=== PATIENT | female | born 1960 | race Caucasian/White ===

== ENCOUNTER 2019-12-02 09:30 | Inpatient (IN) ==
[2019-12-02] MEDS ORDERED: CEFUROXIME 1,500 MG VIAL ONE (09:55)
[2019-12-02] MEDS ORDERED: VANCOMYCIN 1,000 MG VIAL ONE (09:55)
[2019-12-02] MEDS ORDERED: CEFUROXIME INJ 1,500 MG in SYRINGE 1 EACH IV ONE (10:00)
[2019-12-02 11:33] LABS: ABG Base Excess -11.6 MMOL/L (-2.5-2.5); ABG HCO3 15.2 MMOL/L (20-26); ABG Oxygen Saturation 83.4 % (95-100); ABG PCO2 53.4 MM HG (35-48); ABG PO2 67.5 MM HG (80-95); ABG TCO2 16.8 MMOL/L (23-27); Glucose Heart Surgery 342 MG/DL (74-106); Hematocrit Heart Surgery 39.1 PERCENT (37-47); Hemoglobin Heart Surgery 12.7 G/DL (12.0-16.0); Potassium Heart/CVR 2.8 MMOL/L (3.5-5.1)
[2019-12-02 12:56] LABS: Hematocrit Heart Surgery 19.7 PERCENT (37-47); PCO2 Patient Temp Venous 40.6 MM HG; PH Patient Temp Venous 7.314; PO2 Patient Temp Venous 52.2 MM HG; Potassium Heart/CVR 4.1 MMOL/L (3.5-5.1); VBG Base Excess -5.1 MEQ/L (0-4); VBG Oxygen Saturation 81.1 %; VBG PCO2 40.6 MMHG (41-51); VBG PH 7.314; VBG PO2 52.2 MMHG (17-40)
[2019-12-02 12:59] LABS: Hemoglobin Heart Surgery 6.3 G/DL (12.0-16.0)
[2019-12-02 13:00] LABS: Bacteria,Urine Few /HPF (Few); Bilirubin,Urine Negative (Negative); Blood, Urine Large mg/dL (Negative); Glucose,Urine (UA) 50 mg/dL (Negative); Ketones,Urine Negative (Negative); Mucus,Urine Occasional /LPF (Occasional); Nitrite,Urine Negative (Negative); Protein,Urine 100 MG/DL; RBC,Urine 24 /HPF (0-4); Squamous Epithelial Cell,Urine Occasional /HPF (0-10); Urine Color Red (Yellow); Urine Specific Gravity 1.018 (1.001-1.035); Urine Urobilinogen < 2.0 EU/DL (0.2-1.0); WBC,Urine 6 /HPF (0-6)
[2019-12-02 13:01] LABS: Apearance,Urine Slightly Hazy (Clear)
[2019-12-02] MEDS ORDERED: ALBUMIN 5% 12.5 GM/250 ML VIAL IV ONE ×2 (13:04→13:18)
[2019-12-02] MEDS ORDERED: CALCIUM CHLORIDE 1,000 MG/10 ML VIAL IV ONE (13:06)
[2019-12-02] MEDS ORDERED: HEPARIN/NACL 0.9% 2 UNITS/ML 500 ML IV ONE (13:06)
[2019-12-02] MEDS ORDERED: SODIUM BICARBONATE 50 MEQ/50 ML VIAL IV ONE ×3 (13:06→19:27)
[2019-12-02] MEDS ORDERED: SUFentanil 250 MCG/5 ML AMP ONE (13:06)
[2019-12-02] MEDS ORDERED: MIDAZOLAM 10 MG/2 ML VIAL ONE (13:06)
[2019-12-02] MEDS ORDERED: AMINOCAPROIC ACID 5,000 MG/20 ML VIAL ONE (13:07)
[2019-12-02] MEDS ORDERED: AMIODARONE 150 MG/3 ML VIAL ONE ×2 (13:07→13:10)
[2019-12-02] MEDS ORDERED: SODIUM CHLORIDE 0.9% 2,000 ML IV ONE (13:07)
[2019-12-02] MEDS ORDERED: SODIUM CHLORIDE 0.9% 500 ML IV ONE (13:07)
[2019-12-02] MEDS ORDERED: LACTATED RINGERS 1,000 ML IV ONE (13:07)
[2019-12-02] MEDS ORDERED: EPINEPHrine 1 MG/ML VIAL ONE (13:07)
[2019-12-02] MEDS ORDERED: VECURONIUM 10 MG VIAL IV ONE (13:07)
[2019-12-02] MEDS ORDERED: PHENYLEPHRINE 1 MG/10 ML SYRINGE IV ONE (13:08)
[2019-12-02] MEDS ORDERED: PHENYLEPHRINE DRIP 20 MG/250 ML PREMIX IV ONE (13:08)
[2019-12-02] MEDS ORDERED: PHENYLEPHRINE DRIP 40 MG/250 ML PREMIX IV ONE (13:17)
[2019-12-02] MEDS ORDERED: POTASSIUM CHLORIDE RIDER 0 ML IV ONE (13:18)
[2019-12-02 13:25] LABS: Hematocrit Heart Surgery 23.4 PERCENT (37-47); Hemoglobin Heart Surgery 7.5 G/DL (12.0-16.0); PCO2 Patient Temp Venous 35.4 MM HG; PH Patient Temp Venous 7.425; PO2 Patient Temp Venous 40.8 MM HG; VBG Base Excess -0.9 MEQ/L (0-4); VBG HCO3 23.4 MEQ/L (24-28); VBG Oxygen Saturation 73.3 %; VBG PCO2 35.4 MMHG (41-51); VBG PH 7.425; VBG PO2 40.8 MMHG (17-40)
[2019-12-02 13:56] LABS: Hematocrit Heart Surgery 28.3 PERCENT (37-47); Hemoglobin Heart Surgery 9.1 G/DL (12.0-16.0); PCO2 Patient Temp Venous 43.1 MM HG; PH Patient Temp Venous 7.269; PO2 Patient Temp Venous 47.1 MM HG; Potassium Heart/CVR 3.7 MMOL/L (3.5-5.1); VBG Base Excess -6.9 MEQ/L (0-4); VBG HCO3 18.5 MEQ/L (24-28); VBG Oxygen Saturation 77.3 %; VBG PCO2 43.1 MMHG (41-51); VBG PH 7.269; VBG PO2 47.1 MMHG (17-40)
[2019-12-02 14:44] LABS: ABG Base Excess -6.7 MMOL/L (-2.5-2.5); ABG PH 7.296 (7.35-7.45); Glucose Heart Surgery 278 MG/DL (74-106); Hematocrit Heart Surgery 44.2 PERCENT (37-47); Hemoglobin Heart Surgery 14.4 G/DL (12.0-16.0); Ionized Calcium Arterial 1.33 MMOL/L (1.21-1.46); PH Patient Temp Arterial 7.296; Patient Temperature 37 CELCIUS; Potassium Heart/CVR 3.1 MMOL/L (3.5-5.1); Sodium Heart/CVR 131 MMOL/L (135-145)
[2019-12-02] MEDS ORDERED: AMIODARONE 450 MG/9 ML VIAL IV ONE (14:54)
[2019-12-02] MEDS ORDERED: DOBUTamine 0 MG/0 ML PREMIX IV ONE (14:54)
[2019-12-02] MEDS: DOBUTamine 500 MG/250 ML PREMIX IV SCH (15:18)
[2019-12-02] MEDS ORDERED: AMIODARONE INJ 450 MG in DEXTROSE 5% 241 ML IV SCH (15:18)
[2019-12-02] MEDS: SODIUM CHLORIDE 0.45% 1,000 ML IV SCH ×2 (15:18)
[2019-12-02] MEDS: PHENYLEPHRINE DRIP 40 MG/250 ML PREMIX IV PRN ×4 (15:18→21:59)
[2019-12-02] MEDS ORDERED: MANNITOL 100 GM/500 ML BAG IV ONE (15:27)
[2019-12-02] MEDS ORDERED: DEXTROSE 5% KCL 20 MEQ 20 MEQ/1,000 ML BAG IV ONE (15:27)
[2019-12-02] MEDS ORDERED: LIDOCAINE 2% 5 ML VIAL ONE (15:27)
[2019-12-02] MEDS ORDERED: FUROSEMIDE 20 MG/2 ML VIAL ONE (15:28)
[2019-12-02] MEDS ORDERED: MAGNESIUM SULFATE 5 GM/10 ML VIAL IV ONE (15:28)
[2019-12-02] MEDS ORDERED: methylPREDNISolone SOD SUC 1,000 MG/8 ML VIAL ONE (15:28)
[2019-12-02] MEDS ORDERED: HEPARIN 10,000 UNIT/10 ML VIAL ONE (15:28)
[2019-12-02] MEDS ORDERED: ALBUMIN 25% 25 GM/100 ML VIAL IV ONE (15:28)
[2019-12-02] MEDS ORDERED: POTASSIUM CHLORIDE RIDER 100 ML IV ONE (15:28)
[2019-12-02] MEDS ORDERED: INSULIN REGULAR DRIP 100 ML IV SCH (15:44)
[2019-12-02] MEDS ORDERED: MIDAZOLAM 10 MG/2 ML VIAL IV PRN (15:44)
[2019-12-02] MEDS ORDERED: ACETAMINOPHEN 650 MG SUPP RECTAL PRN (15:44)
[2019-12-02] MEDS ORDERED: INSULIN REGULAR 100 UNIT/ML IV PRN (15:44)
[2019-12-02] MEDS ORDERED: DEXTROSE 50% 25 GM/50 ML VIAL IV PRN ×2 (15:44)
[2019-12-02] MEDS ORDERED: MAGNESIUM SULF RIDER 4 GM in PREMIX 1 EACH IV PRN (15:44)
[2019-12-02] MEDS ORDERED: INSULIN REGULAR 100 UNIT/ML IV ONE (15:44)
[2019-12-02] MEDS ORDERED: ONDANSETRON 4 MG/2 ML VIAL IV PRN (15:44)
[2019-12-02] MEDS ORDERED: VECURONIUM 10 MG VIAL IV PRN ×2 (15:44)
[2019-12-02] MEDS ORDERED: CALCIUM CHLORIDE 1,000 MG/10 ML SYRINGE IV PRN (15:44)
[2019-12-02] MEDS ORDERED: NITROPRUSSIDE 100 MG in DEXTROSE 5% 250 ML IV PRN (15:44)
[2019-12-02] MEDS ORDERED: MAGNESIUM SULF RIDER 2 GM in PREMIX 1 EACH IV PRN (15:44)
[2019-12-02] MEDS ORDERED: MORPHINE 10 MG/1 ML VIAL IV PRN (15:44)
[2019-12-02] MEDS ORDERED: MIDAZOLAM 2 MG/2 ML VIAL IV PRN (15:44)
[2019-12-02 15:49] LABS: ABG Base Excess -3.7 MMOL/L (-2.5-2.5); ABG HCO3 21.2 MMOL/L (20-26); ABG Oxygen Saturation 93.6 % (95-100); ABG PCO2 45.5 MM HG (35-48); ABG PH 7.305 (7.35-7.45); ABG PO2 76.1 MM HG (80-95); ABG TCO2 20.8 MMOL/L (23-27); Glucose Heart Surgery 244 MG/DL (74-106); Hematocrit Heart Surgery 30.9 PERCENT (37-47); Potassium Heart/CVR 3.9 MMOL/L (3.5-5.1)
[2019-12-02 15:50] LABS: Basophils % 0.2 % (0.0-0.8); Hematocrit 28.6 VOL% (35.7-47.0); Hemoglobin 9.9 GM/DL (12.0-16.0); Immature Granulocytes % 1.9 %; Immature Granulocytes Absolute 0.35 #; Lymphocytes # 0.4 10*3/uL (1.4-4.0); Mean Corpuscular HGB Conc 34.6 GM/DL (32-36); Mean Corpuscular Volume 84.6 FL (87-102); Mean Platelet Volume 12.5 FL (9.6-12.0); Monocytes % 4.9 % (1.7-12.7); NRBC # 0.02 10*3/uL; Platelet Count 149 T/CUMM (130-400); Red Blood Count 3.38 MC/CUMM (3.8-5.5); Red Cell Distribution Width 14.5 % (9.3-17.3); White Blood Count 18.6 T/CUMM (4-12)
[2019-12-02 16:00] LABS: INR 1.3; Partial Thromboplastin Time 35.3 SECS (23.9-33.8)
[2019-12-02 16:10] LABS: Albumin 1.4 G/DL (3.4-5.0); Bilirubin,Total 3.6 MG/DL (0.2-1.0); Calcium 7.5 MG/DL (8.5-10.1); Osmolality,Calculated 301.3 MOS/KG (273-304); Total Protein 3.8 G/DL (6.4-8.3)
[2019-12-02 16:15] LABS: Anisocytosis 1+; Hypochromasia Slight; Lymphocytes 4 % (20-55); Platelet Estimate Adequate; Segmented Neutrophils 91 % (50-85); Total Cells Counted 100; Troponin I 32.9 NG/ML (0.00-0.045)
[2019-12-02] MEDS ORDERED: FUROSEMIDE 40 MG/4 ML VIAL IV ONE (17:02)
[2019-12-02 18:01] LABS: ABG Base Excess -6.2 MMOL/L (-2.5-2.5); ABG HCO3 18.4 MMOL/L (20-26); ABG Oxygen Saturation 97.7 % (95-100); ABG PCO2 32.9 MM HG (35-48); ABG PH 7.366 (7.35-7.45); ABG PO2 127.1 MM HG (80-95); ABG TCO2 19.4 MMOL/L (23-27); Glucose Heart Surgery 189 MG/DL (74-106); Hemoglobin Heart Surgery 9.5 G/DL (12.0-16.0)
[2019-12-02] MEDS: FUROSEMIDE INJ 100 MG in SODIUM CHLORIDE 0.9% 90 ML IV SCH (18:06)
[2019-12-02] MEDS: ALBUMIN 5% 12.5 GM in PREMIX 1 EACH IV PRN ×3 (19:02→22:08)
[2019-12-02] MEDS: POTASSIUM CHLORIDE RIDER 20 MEQ in PREMIX 1 EACH IV PRN ×3 (19:05→22:23)
[2019-12-02] MEDS: LACTATED RINGERS 250 ML IV PRN ×3 (19:30→23:30)
[2019-12-02] MEDS: CHLORHEXIDINE 0.12% ORAL RINSE 60 ML BOTTLE SWISH/SPIT SCH (20:39)
[2019-12-02 21:23] LABS: ABG Base Excess -2.9 MMOL/L (-2.5-2.5); ABG Oxygen Saturation 98.4 % (95-100); ABG PCO2 35.8 MM HG (35-48); ABG PH 7.388 (7.35-7.45); ABG TCO2 19.6 MMOL/L (23-27); Glucose Heart Surgery 190 MG/DL (74-106); Potassium Heart/CVR 3.5 MMOL/L (3.5-5.1)
[2019-12-02] MEDS: AMIODARONE INJ 450 MG in DEXTROSE 5% 241 ML IV SCH (22:40)
[2019-12-02] MEDS: PANTOPRAZOLE 40 MG VIAL IV SCH (22:43)
[2019-12-02] MEDS: CEFUROXIME INJ 1,500 MG in SYRINGE 1 EACH IV SCH (22:46)
[2019-12-02] MEDS: POTASSIUM CHLORIDE RIDER 10 MEQ in PREMIX 1 EACH IV PRN (22:49)
[2019-12-02] MEDS: PHENYLEPHRINE INJ 160 MG in SODIUM CHLORIDE 0.9% 234 ML IV PRN (23:41)
[2019-12-03 00:16] LABS: CKMB % 5.1 %
[2019-12-03] MEDS: ALBUMIN 5% 12.5 GM in PREMIX 1 EACH IV PRN (00:16)
[2019-12-03] MEDS: LACTATED RINGERS 250 ML IV PRN (00:31)
[2019-12-03 01:38] LABS: ABG Base Excess -0.4 MMOL/L (-2.5-2.5); ABG HCO3 22.4 MMOL/L (20-26); ABG Oxygen Saturation 96.4 % (95-100); ABG PCO2 30.4 MM HG (35-48); ABG PH 7.486 (7.35-7.45); ABG PO2 91.4 MM HG (80-95); ABG TCO2 23.4 MMOL/L (23-27); Glucose Heart Surgery 103 MG/DL (74-106); Potassium Heart/CVR 3.6 MMOL/L (3.5-5.1)
[2019-12-03] MEDS: POTASSIUM CHLORIDE RIDER 20 MEQ in PREMIX 1 EACH IV PRN ×2 (01:54→23:20)
[2019-12-03] MEDS: POTASSIUM CHLORIDE RIDER 10 MEQ in PREMIX 1 EACH IV PRN ×2 (02:29→05:15)
[2019-12-03] MEDS: FUROSEMIDE INJ 100 MG in SODIUM CHLORIDE 0.9% 90 ML IV SCH ×3 (02:37→23:01)
[2019-12-03 04:18] LABS: ABG Base Excess -0.4 MMOL/L (-2.5-2.5); ABG HCO3 23.3 MMOL/L (20-26); ABG PCO2 34.3 MM HG (35-48); ABG PH 7.449 (7.35-7.45); ABG PO2 91.9 MM HG (80-95); ABG TCO2 24.3 MMOL/L (23-27); Glucose Heart Surgery 105 MG/DL (74-106); Hemoglobin Heart Surgery 10.1 G/DL (12.0-16.0); Potassium Heart/CVR 4.5 MMOL/L (3.5-5.1)
[2019-12-03 04:23] LABS: Basophils % 0.1 % (0.0-0.8); Hematocrit 27.7 VOL% (35.7-47.0); Hemoglobin 9.6 GM/DL (12.0-16.0); Immature Granulocytes Absolute 0.19 #; Lymphocytes # 0.5 10*3/uL (1.4-4.0); Lymphocytes % 2.6 % (21.3-54.2); Mean Corpuscular HGB Conc 34.7 GM/DL (32-36); Mean Corpuscular Volume 83.2 FL (87-102); Monocytes % 6.3 % (1.7-12.7); NRBC # 0.03 10*3/uL; Platelet Count 170 T/CUMM (130-400); Red Blood Count 3.33 MC/CUMM (3.8-5.5); Red Cell Distribution Width 14.5 % (9.3-17.3); White Blood Count 18.5 T/CUMM (4-12)
[2019-12-03 04:56] LABS: Bilirubin,Direct 3.05 MG/DL (0.0-0.20); Bilirubin,Total 7.3 MG/DL (0.2-1.0); Calcium 8.8 MG/DL (8.5-10.1); Osmolality,Calculated 296.1 MOS/KG (273-304); Total Protein 5.3 G/DL (6.4-8.3)
[2019-12-03 05:17] LABS: Band Neutrophils 8 % (0-10); Lymphocytes 3 % (20-55); Platelet Estimate Normal; Segmented Neutrophils 82 % (50-85); Total Cells Counted 100
[2019-12-03 05:18] LABS: Anisocytosis 1+
[2019-12-03 05:19] LABS: Giant Platelets Few; Macrocytosis Slight; Polychromasia Slight
[2019-12-03 07:08] LABS: ABG Base Excess -1.7 MMOL/L (-2.5-2.5); ABG Oxygen Saturation 97.1 % (95-100); ABG PCO2 34.1 MM HG (35-48); ABG PH 7.421 (7.35-7.45); ABG TCO2 19.8 MMOL/L (23-27); Glucose Heart Surgery 134 MG/DL (74-106); Potassium Heart/CVR 4.7 MMOL/L (3.5-5.1)
[2019-12-03 07:50] LABS: CKMB % 2.4 %
[2019-12-03 07:56] LABS: Troponin I 35.1 NG/ML (0.00-0.045)
[2019-12-03] MEDS: TICAGRELOR 90 MG TABLET PO SCH ×2 (09:02→21:08)
[2019-12-03] MEDS: PANTOPRAZOLE 40 MG VIAL IV SCH ×2 (09:02→21:09)
[2019-12-03] MEDS: CHLORHEXIDINE 0.12% ORAL RINSE 60 ML BOTTLE SWISH/SPIT SCH ×2 (09:03→21:18)
[2019-12-03] MEDS: ASPIRIN CHEW 81 MG TABLET PO SCH (09:03)
[2019-12-03 09:50] LABS: ABG Base Excess -2.5 MMOL/L (-2.5-2.5); ABG HCO3 22.3 MMOL/L (20-26); ABG Oxygen Saturation 96.2 % (95-100); ABG PH 7.418 (7.35-7.45); ABG PO2 84.4 MM HG (80-95); ABG TCO2 19.1 MMOL/L (23-27); Glucose Heart Surgery 137 MG/DL (74-106); Hematocrit Heart Surgery 34.5 PERCENT (37-47); Hemoglobin Heart Surgery 11.2 G/DL (12.0-16.0); Potassium Heart/CVR 4.5 MMOL/L (3.5-5.1)
[2019-12-03] MEDS: PHENYLEPHRINE INJ 160 MG in SODIUM CHLORIDE 0.9% 234 ML IV PRN (10:46)
[2019-12-03] MEDS: ASCORBIC ACID 500 MG TABLET PO SCH ×2 (11:08→21:09)
[2019-12-03] MEDS: CEFUROXIME INJ 1,500 MG in SYRINGE 1 EACH IV SCH ×2 (11:09→22:56)
[2019-12-03] MEDS: INSULIN REGULAR 100 UNIT/ML SUBCUT SCH ×3 (11:36→21:07)
[2019-12-03] MEDS: AMIODARONE INJ 450 MG in DEXTROSE 5% 241 ML IV SCH ×2 (13:40→15:27)
[2019-12-03 15:03] LABS: ABG Base Excess -3.4 MMOL/L (-2.5-2.5); ABG HCO3 21.6 MMOL/L (20-26); ABG Oxygen Saturation 97.5 % (95-100); ABG PCO2 30.1 MM HG (35-48); ABG PO2 97.8 MM HG (80-95); ABG TCO2 17.8 MMOL/L (23-27); Glucose Heart Surgery 167 MG/DL (74-106); Hematocrit Heart Surgery 34.6 PERCENT (37-47); Hemoglobin Heart Surgery 11.2 G/DL (12.0-16.0); Potassium Heart/CVR 4.6 MMOL/L (3.5-5.1)
[2019-12-03] MEDS: DOBUTamine 500 MG/250 ML PREMIX IV SCH (15:55)
[2019-12-03] MEDS ORDERED: ACETAMINOPHEN 325 MG/10.15 ML UDCUP PO PRN (16:07)
[2019-12-03 16:10] LABS: CKMB % 1.5 %; Troponin I 32.9 NG/ML (0.00-0.045)
[2019-12-03] MEDS ORDERED: POTASSIUM CHLORIDE RIDER 10 MEQ in PREMIX 1 EACH IV PRN (16:59)
[2019-12-03] MEDS ORDERED: MAGNESIUM SULF RIDER 2 GM in PREMIX 1 EACH IV PRN (16:59)
[2019-12-03] MEDS: SODIUM CHLORIDE 0.45% 1,000 ML IV SCH ×2 (17:30)
[2019-12-03] MEDS ORDERED: HEPARIN/NACL 0.9% 2 UNITS/ML 1,000 ML IV ONE (17:49)
[2019-12-03] MEDS ORDERED: LIDOCAINE 1% 20 ML VIAL ONE (17:50)
[2019-12-03] MEDS ORDERED: VANCOMYCIN 500 MG VIAL ONE (18:18)
[2019-12-03] MEDS ORDERED: HEPARIN/NACL 0.9% 2 UNITS/ML 500 ML IV ONE ×2 (19:01→20:45)
[2019-12-03 20:45] LABS: ABG Base Excess -2.4 MMOL/L (-2.5-2.5); ABG HCO3 22.3 MMOL/L (20-26); ABG Oxygen Saturation 95.6 % (95-100); ABG PCO2 32.1 MM HG (35-48); ABG PH 7.427 (7.35-7.45); ABG PO2 83.3 MM HG (80-95); Glucose Heart Surgery 209 MG/DL (74-106); Hematocrit Heart Surgery 33.7 PERCENT (37-47); Hemoglobin Heart Surgery 10.9 G/DL (12.0-16.0); Potassium Heart/CVR 4.2 MMOL/L (3.5-5.1)
[2019-12-03] MEDS: HEPARIN DRIP 25,000 UNITS/500 ML PREMIX IV SCH (20:49)
[2019-12-03] MEDS: SODIUM BICARB INJ 50 MEQ in SODIUM CHLORIDE 0.45% 1,000 ML IV SCH (20:59)
[2019-12-04] MEDS: INSULIN REGULAR 100 UNIT/ML SUBCUT SCH ×7 (00:28→23:26)
[2019-12-04 02:22] LABS: ABG Base Excess -1.9 MMOL/L (-2.5-2.5); ABG HCO3 22.8 MMOL/L (20-26); ABG Oxygen Saturation 97.1 % (95-100); ABG PCO2 30.3 MM HG (35-48); ABG PH 7.453 (7.35-7.45); ABG PO2 94.6 MM HG (80-95); ABG TCO2 19.2 MMOL/L (23-27); Glucose Heart Surgery 253 MG/DL (74-106); Hematocrit Heart Surgery 31.6 PERCENT (37-47); Hemoglobin Heart Surgery 10.2 G/DL (12.0-16.0)
[2019-12-04 02:45] LABS: Basophils % 0.2 % (0.0-0.8); Immature Granulocytes % 1.2 %; Immature Granulocytes Absolute 0.18 #; Lymphocytes # 0.5 10*3/uL (1.4-4.0); Lymphocytes % 3.3 % (21.3-54.2); Mean Corpuscular HGB Conc 33.3 GM/DL (32-36); Mean Corpuscular Volume 85.5 FL (87-102); Monocytes % 2.9 % (1.7-12.7); NRBC # 0.29 10*3/uL; Neutrophils % 92.4 % (38.7-73.9); Red Blood Count 3.51 MC/CUMM (3.8-5.5); Red Cell Distribution Width 15.4 % (9.3-17.3); White Blood Count 14.7 T/CUMM (4-12)
[2019-12-04 02:54] LABS: Platelet Count 123 T/CUMM (130-400)
[2019-12-04] MEDS: HEPARIN 5,000 UNIT/1 ML VIAL IV PRN ×2 (03:25→08:45)
[2019-12-04] MEDS: DOBUTamine 500 MG/250 ML PREMIX IV SCH ×2 (03:28→14:50)
[2019-12-04 05:23] LABS: Albumin 2.6 G/DL (3.4-5.0); Bilirubin,Direct 4.79 MG/DL (0.0-0.20); Bilirubin,Total 7.6 MG/DL (0.2-1.0); Osmolality,Calculated 312.4 MOS/KG (273-304)
[2019-12-04 05:42] LABS: Anisocytosis 1+; Band Neutrophils 5 % (0-10); Hypochromasia 2+; Lymphocytes 5 % (20-55); Macrocytosis 1+; Platelet Estimate Decreased; Segmented Neutrophils 87 % (50-85); Total Cells Counted 100
[2019-12-04] MEDS: AMIODARONE INJ 450 MG in DEXTROSE 5% 241 ML IV SCH ×2 (05:57→20:34)
[2019-12-04 08:12] LABS: ABG Base Excess -1.1 MMOL/L (-2.5-2.5); ABG HCO3 21.4 MMOL/L (20-26); ABG PCO2 28.5 MM HG (35-48); ABG PH 7.493 (7.35-7.45); ABG PO2 104.7 MM HG (80-95); ABG TCO2 22.3 MMOL/L (23-27); Glucose Heart Surgery 203 MG/DL (74-106); Hemoglobin Heart Surgery 10.4 G/DL (12.0-16.0); Potassium Heart/CVR 3.7 MMOL/L (3.5-5.1)
[2019-12-04 08:15] LABS: VBG Base Excess -0.4 MEQ/L (0-4); VBG HCO3 22.9 MEQ/L (24-28); VBG Oxygen Saturation 88.8 %; VBG PCO2 32.7 MMHG (41-51); VBG PH 7.463
[2019-12-04] MEDS: PANTOPRAZOLE 40 MG VIAL IV SCH ×2 (08:45→20:41)
[2019-12-04] MEDS: ASPIRIN CHEW 81 MG TABLET PO SCH (08:47)
[2019-12-04] MEDS: TICAGRELOR 90 MG TABLET PO SCH ×2 (08:47→20:41)
[2019-12-04] MEDS: MORPHINE 4 MG/1 ML VIAL IV PRN (08:50)
[2019-12-04] MEDS: ASCORBIC ACID 500 MG TABLET PO SCH ×2 (08:54→20:41)
[2019-12-04 08:59] LABS: Troponin I 25.8 NG/ML (0.00-0.045)
[2019-12-04 09:07] LABS: VBG Base Excess -0.1 MEQ/L (0-4); VBG HCO3 23.2 MEQ/L (24-28); VBG Oxygen Saturation 83.5 %; VBG PCO2 33.2 MMHG (41-51); VBG PH 7.463; VBG PO2 52.7 MMHG (17-40)
[2019-12-04 09:35] LABS: CKMB % 1.3 %
[2019-12-04] MEDS: CHLORHEXIDINE 0.12% ORAL RINSE 60 ML BOTTLE SWISH/SPIT SCH ×2 (09:50→20:41)
[2019-12-04] MEDS: SODIUM BICARB INJ 50 MEQ in SODIUM CHLORIDE 0.45% 1,000 ML IV SCH ×3 (10:52→23:30)
[2019-12-04] MEDS: FUROSEMIDE INJ 100 MG in SODIUM CHLORIDE 0.9% 90 ML IV SCH ×2 (10:52→20:35)
[2019-12-04 14:08] LABS: Calcium 7.8 MG/DL (8.5-10.1); Osmolality,Calculated 310.4 MOS/KG (273-304)
[2019-12-04 14:17] LABS: INR 1.4; PT Patient Result 14.5 SECS (9.8-11.9); Partial Thromboplastin Time 40.1 SECS (23.9-33.8)
[2019-12-04] MEDS: SODIUM CHLORIDE 0.45% 1,000 ML IV SCH (17:39)
[2019-12-04] MEDS ORDERED: NITROGLYCERIN DRIP 50 MG/250 ML BOTTLE IV PRN (20:13)
[2019-12-04] MEDS ORDERED: FUROSEMIDE 40 MG/4 ML VIAL IV ONE (20:13)
[2019-12-04] MEDS: HEPARIN DRIP 25,000 UNITS/500 ML PREMIX IV SCH (20:35)
[2019-12-05 03:07] LABS: ABG Base Excess 1.5 MMOL/L (-2.5-2.5); ABG HCO3 24.5 MMOL/L (20-26); ABG Oxygen Saturation 98.3 % (95-100); ABG PCO2 32.6 MM HG (35-48); ABG PH 7.494 (7.35-7.45); ABG PO2 164.9 MM HG (80-95); ABG TCO2 25.5 MMOL/L (23-27); Glucose Heart Surgery 148 MG/DL (74-106); Hemoglobin Heart Surgery 9.8 G/DL (12.0-16.0); Potassium Heart/CVR 3.6 MMOL/L (3.5-5.1)
[2019-12-05] MEDS: INSULIN REGULAR 100 UNIT/ML SUBCUT SCH ×5 (03:14→20:04)
[2019-12-05 03:15] LABS: Basophils % 0.3 % (0.0-0.8); Hemoglobin 9.3 GM/DL (12.0-16.0); Immature Granulocytes % 3.3 %; Immature Granulocytes Absolute 0.53 #; Mean Corpuscular HGB Conc 34.4 GM/DL (32-36); Mean Corpuscular Volume 85.4 FL (87-102); Mean Platelet Volume 13.7 FL (9.6-12.0); Monocytes % 3.1 % (1.7-12.7); NRBC # 0.53 10*3/uL; Neutrophils % 87.3 % (38.7-73.9); Red Blood Count 3.16 MC/CUMM (3.8-5.5); White Blood Count 15.9 T/CUMM (4-12)
[2019-12-05 03:18] LABS: Platelet Count 90 T/CUMM (130-400)
[2019-12-05] MEDS: POTASSIUM CHLORIDE RIDER 10 MEQ in PREMIX 1 EACH IV PRN ×2 (03:25→16:31)
[2019-12-05 03:43] LABS: Albumin 2.4 G/DL (3.4-5.0); Bilirubin,Direct 4.73 MG/DL (0.0-0.20); Bilirubin,Total 7.1 MG/DL (0.2-1.0); Calcium 7.7 MG/DL (8.5-10.1); Osmolality,Calculated 307.8 MOS/KG (273-304)
[2019-12-05 04:18] LABS: Troponin I 17.2 NG/ML (0.00-0.045)
[2019-12-05 04:42] LABS: Lymphocytes 10 % (20-55); Nucleated Red Blood Cells 3 (0-5); Platelet Estimate Decreased; Segmented Neutrophils 88 % (50-85); Total Cells Counted 100
[2019-12-05 04:42] LABS: ABG Base Excess 2.1 MMOL/L (-2.5-2.5); ABG HCO3 26.3 MMOL/L (20-26); ABG Oxygen Saturation 98.3 % (95-100); ABG PCO2 35.5 MM HG (35-48); ABG PH 7.467 (7.35-7.45); ABG TCO2 23.5 MMOL/L (23-27); Glucose Heart Surgery 175 MG/DL (74-106); Hematocrit Heart Surgery 28.8 PERCENT (37-47); Hemoglobin Heart Surgery 9.3 G/DL (12.0-16.0)
[2019-12-05 04:43] LABS: Hypochromasia Slight; Macrocytosis Slight; Polychromasia Slight
[2019-12-05 07:31] LABS: CKMB % 0.7 %
[2019-12-05] MEDS: FUROSEMIDE INJ 100 MG in SODIUM CHLORIDE 0.9% 90 ML IV SCH ×2 (07:34→18:23)
[2019-12-05 08:12] LABS: ABG Base Excess 2.1 MMOL/L (-2.5-2.5); ABG HCO3 25.1 MMOL/L (20-26); ABG Oxygen Saturation 95.7 % (95-100); ABG PCO2 32.8 MM HG (35-48); ABG PH 7.501 (7.35-7.45); ABG PO2 85.1 MM HG (80-95); ABG TCO2 26.1 MMOL/L (23-27); Glucose Heart Surgery 159 MG/DL (74-106); Hemoglobin Heart Surgery 9.8 G/DL (12.0-16.0); Potassium Heart/CVR 3.9 MMOL/L (3.5-5.1)
[2019-12-05] MEDS: MORPHINE 4 MG/1 ML VIAL IV PRN ×2 (09:06→15:23)
[2019-12-05] MEDS: PANTOPRAZOLE 40 MG VIAL IV SCH ×2 (09:08→21:00)
[2019-12-05] MEDS: TICAGRELOR 90 MG TABLET PO SCH ×2 (09:11→20:56)
[2019-12-05] MEDS: ASCORBIC ACID 500 MG TABLET PO SCH ×2 (09:11→20:58)
[2019-12-05] MEDS: CHLORHEXIDINE 0.12% ORAL RINSE 60 ML BOTTLE SWISH/SPIT SCH ×2 (09:11→20:58)
[2019-12-05] MEDS: ASPIRIN CHEW 81 MG TABLET PO SCH (09:11)
[2019-12-05] MEDS: AMIODARONE 200 MG TABLET PO SCH ×2 (09:11→20:58)
[2019-12-05] MEDS ORDERED: HALOPERIDOL 5 MG/ML AMP IV ONE (09:37)
[2019-12-05 16:12] LABS: ABG HCO3 25.9 MMOL/L (20-26); ABG Oxygen Saturation 93.7 % (95-100); ABG PCO2 33.4 MM HG (35-48); ABG PH 7.507 (7.35-7.45); ABG PO2 71.6 MM HG (80-95); ABG TCO2 26.9 MMOL/L (23-27); Glucose Heart Surgery 146 MG/DL (74-106); Hemoglobin Heart Surgery 10.4 G/DL (12.0-16.0); Potassium Heart/CVR 3.6 MMOL/L (3.5-5.1)
[2019-12-05] MEDS: SODIUM CHLORIDE 0.45% 1,000 ML IV SCH (16:45)
[2019-12-05] MEDS: WARFARIN 5 MG TABLET PO SCH (17:39)
[2019-12-05] MEDS: HEPARIN DRIP 25,000 UNITS/500 ML PREMIX IV SCH ×2 (17:57→20:06)
[2019-12-05] MEDS: DOBUTamine 500 MG/250 ML PREMIX IV SCH (18:24)
[2019-12-05] MEDS ORDERED: HEPARIN/NACL 0.9% 2 UNITS/ML 500 ML IV ONE (18:52)
[2019-12-06] MEDS: INSULIN REGULAR 100 UNIT/ML SUBCUT SCH ×6 (00:28→20:01)
[2019-12-06] MEDS: FUROSEMIDE INJ 100 MG in SODIUM CHLORIDE 0.9% 90 ML IV SCH ×3 (01:54→22:59)
[2019-12-06 04:27] LABS: ABG Base Excess 5.8 MMOL/L (-2.5-2.5); ABG HCO3 28.6 MMOL/L (20-26); ABG Oxygen Saturation 97.7 % (95-100); ABG PCO2 34.9 MM HG (35-48); ABG PH 7.532 (7.35-7.45); ABG PO2 113.1 MM HG (80-95); ABG TCO2 29.7 MMOL/L (23-27); Glucose Heart Surgery 120 MG/DL (74-106); Hemoglobin Heart Surgery 10.1 G/DL (12.0-16.0); Potassium Heart/CVR 3.6 MMOL/L (3.5-5.1)
[2019-12-06 04:36] LABS: Basophils # 0.1 10*3/uL (0.0-0.2); Basophils % 0.3 % (0.0-0.8); Eosinophils # 1.5 10*3/uL (0.0-0.87); Eosinophils % 8.8 % (0.00-10.9); Hematocrit 27.7 VOL% (35.7-47.0); Hemoglobin 9.4 GM/DL (12.0-16.0); Immature Granulocytes Absolute 0.84 #; Lymphocytes # 0.9 10*3/uL (1.4-4.0); Lymphocytes % 5.1 % (21.3-54.2); Mean Corpuscular HGB Conc 33.9 GM/DL (32-36); Mean Corpuscular Volume 85.8 FL (87-102); Mean Platelet Volume 13.4 FL (9.6-12.0); Monocytes % 2.7 % (1.7-12.7); NRBC # 0.32 10*3/uL; Neutrophils % 78.1 % (38.7-73.9); Platelet Count 99 T/CUMM (130-400); Red Blood Count 3.23 MC/CUMM (3.8-5.5)
[2019-12-06] MEDS: POTASSIUM CHLORIDE RIDER 20 MEQ in PREMIX 1 EACH IV PRN (04:47)
[2019-12-06 04:56] LABS: Calcium 7.6 MG/DL (8.5-10.1); Osmolality,Calculated 309.8 MOS/KG (273-304)
[2019-12-06 05:10] LABS: Band Neutrophils 1 % (0-10); Lymphocytes 5 % (20-55); Nucleated Red Blood Cells 2 (0-5); Platelet Estimate Decreased; Segmented Neutrophils 89 % (50-85); Total Cells Counted 100
[2019-12-06 05:13] LABS: Hypochromasia 1+; Macrocytosis Slight; Polychromasia Slight
[2019-12-06 05:26] LABS: INR 1.1; PT Patient Result 11.9 SECS (9.8-11.9)
[2019-12-06] MEDS: MORPHINE 4 MG/1 ML VIAL IV PRN (07:22)
[2019-12-06 07:35] LABS: Albumin 2.4 G/DL (3.4-5.0); Bilirubin,Direct 3.867 MG/DL (0.0-0.20); Bilirubin,Indirect 1.7 MG/DL (0.0-1.0); Bilirubin,Total 5.6 MG/DL (0.2-1.0); CKMB % 0.5 %; Total Protein 4.9 G/DL (6.4-8.3)
[2019-12-06 07:36] LABS: Troponin I 9.76 NG/ML (0.00-0.045)
[2019-12-06] MEDS: CHLORHEXIDINE 0.12% ORAL RINSE 60 ML BOTTLE SWISH/SPIT SCH ×2 (09:47→21:03)
[2019-12-06] MEDS: PANTOPRAZOLE 40 MG VIAL IV SCH ×2 (09:47→21:04)
[2019-12-06] MEDS: ASPIRIN CHEW 81 MG TABLET PO SCH (09:47)
[2019-12-06] MEDS: TICAGRELOR 90 MG TABLET PO SCH ×2 (09:47→21:03)
[2019-12-06] MEDS: AMIODARONE 200 MG TABLET PO SCH ×2 (09:47→21:03)
[2019-12-06] MEDS: ASCORBIC ACID 500 MG TABLET PO SCH ×2 (09:47→21:03)
[2019-12-06] MEDS: ALBUTEROL/IPRATROPIUM 3 ML NEB RESP TX SCH ×2 (13:03→19:48)
[2019-12-06] MEDS: DOBUTamine 500 MG/250 ML PREMIX IV SCH (14:43)
[2019-12-06] MEDS: HEPARIN DRIP 25,000 UNITS/500 ML PREMIX IV SCH ×2 (15:44→20:02)
[2019-12-06] MEDS: WARFARIN 5 MG TABLET PO SCH (18:01)
[2019-12-06] MEDS: SODIUM CHLORIDE 0.45% 1,000 ML IV SCH ×2 (18:02→21:13)
[2019-12-07] MEDS: INSULIN REGULAR 100 UNIT/ML SUBCUT SCH ×6 (00:14→19:54)
[2019-12-07] MEDS: ALBUTEROL/IPRATROPIUM 3 ML NEB RESP TX SCH ×4 (01:45→19:30)
[2019-12-07 04:44] LABS: ABG Base Excess 10.2 MMOL/L (-2.5-2.5); ABG Oxygen Saturation 99.3 % (95-100); ABG PCO2 37.1 MM HG (35-48); ABG PH 7.558 (7.35-7.45); ABG TCO2 27.1 MMOL/L (23-27); Glucose Heart Surgery 171 MG/DL (74-106); Hematocrit Heart Surgery 50.6 PERCENT (37-47); Hemoglobin Heart Surgery 16.5 G/DL (12.0-16.0); Potassium Heart/CVR 3.3 MMOL/L (3.5-5.1)
[2019-12-07] MEDS: POTASSIUM CHLORIDE RIDER 20 MEQ in PREMIX 1 EACH IV PRN ×3 (04:53→11:48)
[2019-12-07 05:10] LABS: Basophils % 0.3 % (0.0-0.8); Eosinophils % 0.2 % (0.00-10.9); Hematocrit 30.1 VOL% (35.7-47.0); Hemoglobin 10.3 GM/DL (12.0-16.0); Immature Granulocytes % 5.4 %; Immature Granulocytes Absolute 0.71 #; Lymphocytes # 0.5 10*3/uL (1.4-4.0); Lymphocytes % 4.1 % (21.3-54.2); Mean Corpuscular HGB Conc 34.2 GM/DL (32-36); Mean Corpuscular Volume 85.8 FL (87-102); Mean Platelet Volume 13.4 FL (9.6-12.0); Monocytes % 3.1 % (1.7-12.7); NRBC # 0.12 10*3/uL; Neutrophils % 86.9 % (38.7-73.9); Platelet Count 106 T/CUMM (130-400); Red Blood Count 3.51 MC/CUMM (3.8-5.5); Red Cell Distribution Width 15.2 % (9.3-17.3)
[2019-12-07 05:17] LABS: INR 1.2; PT Patient Result 13.1 SECS (9.8-11.9)
[2019-12-07 05:28] LABS: Calcium 8.3 MG/DL (8.5-10.1); Osmolality,Calculated 307.8 MOS/KG (273-304)
[2019-12-07 05:32] LABS: Hypochromasia Slight; Lymphocytes 4 % (20-55); Macrocytosis Slight; Platelet Estimate Decreased; Polychromasia Slight; Segmented Neutrophils 93 % (50-85); Total Cells Counted 100
[2019-12-07] MEDS: ALBUMIN 5% 12.5 GM in PREMIX 1 EACH IV PRN ×2 (06:27→06:52)
[2019-12-07 06:39] LABS: CKMB % 1.1 %
[2019-12-07 06:41] LABS: Troponin I 6.44 NG/ML (0.00-0.045)
[2019-12-07 07:33] LABS: Prealbumin 13.7 MG/DL (20-40)
[2019-12-07] MEDS: ASCORBIC ACID 500 MG TABLET PO SCH ×2 (08:01→20:01)
[2019-12-07] MEDS: ASPIRIN CHEW 81 MG TABLET PO SCH (08:01)
[2019-12-07] MEDS: PANTOPRAZOLE 40 MG VIAL IV SCH ×2 (08:01→20:02)
[2019-12-07] MEDS: TICAGRELOR 90 MG TABLET PO SCH ×2 (08:01→20:01)
[2019-12-07] MEDS: AMIODARONE 200 MG TABLET PO SCH ×2 (08:01→20:01)
[2019-12-07] MEDS: CHLORHEXIDINE 0.12% ORAL RINSE 60 ML BOTTLE SWISH/SPIT SCH ×2 (08:02→20:01)
[2019-12-07 09:40] LABS: ABG Base Excess 7.9 MMOL/L (-2.5-2.5); ABG HCO3 30.8 MMOL/L (20-26); ABG PCO2 36.3 MM HG (35-48); ABG PH 7.546 (7.35-7.45); ABG PO2 97.1 MM HG (80-95); ABG TCO2 31.9 MMOL/L (23-27); Glucose Heart Surgery 105 MG/DL (74-106); Hemoglobin Heart Surgery 10.1 G/DL (12.0-16.0); Potassium Heart/CVR 3.5 MMOL/L (3.5-5.1)
[2019-12-07] MEDS: HEPARIN DRIP 25,000 UNITS/500 ML PREMIX IV SCH ×2 (18:42→21:34)
[2019-12-07] MEDS: WARFARIN 5 MG TABLET PO SCH (18:42)
[2019-12-08] MEDS: INSULIN REGULAR 100 UNIT/ML SUBCUT SCH ×7 (00:07→23:38)
[2019-12-08] MEDS: SODIUM CHLORIDE 0.45% 1,000 ML IV SCH ×3 (00:07→23:28)
[2019-12-08] MEDS: ALBUTEROL/IPRATROPIUM 3 ML NEB RESP TX SCH ×4 (01:35→19:21)
[2019-12-08 04:10] LABS: Basophils % 0.3 % (0.0-0.8); Eosinophils # 0.1 10*3/uL (0.0-0.87); Eosinophils % 0.5 % (0.00-10.9); Hematocrit 30.6 VOL% (35.7-47.0); Immature Granulocytes % 7.7 %; Immature Granulocytes Absolute 0.97 #; Lymphocytes # 0.5 10*3/uL (1.4-4.0); Mean Corpuscular HGB Conc 32.7 GM/DL (32-36); Mean Corpuscular Volume 88.2 FL (87-102); Mean Platelet Volume 13.3 FL (9.6-12.0); Monocytes % 4.5 % (1.7-12.7); NRBC # 0.06 10*3/uL; Platelet Count 123 T/CUMM (130-400); Red Blood Count 3.47 MC/CUMM (3.8-5.5); Red Cell Distribution Width 15.9 % (9.3-17.3); White Blood Count 12.5 T/CUMM (4-12)
[2019-12-08 04:18] LABS: INR 1.5; PT Patient Result 16.1 SECS (9.8-11.9)
[2019-12-08 04:39] LABS: Albumin 3.1 G/DL (3.4-5.0); Bilirubin,Total 6.4 MG/DL (0.2-1.0); Calcium 8.9 MG/DL (8.5-10.1); Total Protein 6.1 G/DL (6.4-8.3)
[2019-12-08 04:56] LABS: Eosinophils 1 % (0-10); Lymphocytes 5 % (20-55); Segmented Neutrophils 88 % (50-85); Total Cells Counted 100
[2019-12-08 04:57] LABS: Anisocytosis 1+; Platelet Estimate Normal; Polychromasia 1+
[2019-12-08] MEDS: POTASSIUM CHLORIDE RIDER 20 MEQ in PREMIX 1 EACH IV PRN (05:07)
[2019-12-08 06:05] LABS: Troponin I 4.5 NG/ML (0.00-0.045)
[2019-12-08 06:28] LABS: Bilirubin,Direct 4.2 MG/DL (0.0-0.20); Bilirubin,Indirect 1.6 MG/DL (0.0-1.0); Bilirubin,Total 5.8 MG/DL (0.2-1.0); Total Protein 6.1 G/DL (6.4-8.3)
[2019-12-08] MEDS: POTASSIUM CHLORIDE RIDER 10 MEQ in PREMIX 1 EACH IV PRN (06:54)
[2019-12-08] MEDS: CHLORHEXIDINE 0.12% ORAL RINSE 60 ML BOTTLE SWISH/SPIT SCH ×2 (08:08→20:32)
[2019-12-08] MEDS: TICAGRELOR 90 MG TABLET PO SCH ×2 (08:08→20:31)
[2019-12-08] MEDS: ASCORBIC ACID 500 MG TABLET PO SCH ×2 (08:08→20:34)
[2019-12-08] MEDS: PANTOPRAZOLE 40 MG VIAL IV SCH ×2 (08:08→20:32)
[2019-12-08] MEDS: AMIODARONE 200 MG TABLET PO SCH ×2 (08:08→20:31)
[2019-12-08] MEDS: ASPIRIN CHEW 81 MG TABLET PO SCH (08:08)
[2019-12-08 08:50] LABS: ABG Base Excess 6.6 MMOL/L (-2.5-2.5); ABG HCO3 30.4 MMOL/L (20-26); ABG Oxygen Saturation 96.4 % (95-100); ABG PCO2 34.7 MM HG (35-48); ABG PH 7.536 (7.35-7.45); ABG PO2 79.9 MM HG (80-95); ABG TCO2 26.4 MMOL/L (23-27)
[2019-12-08 09:52] LABS: CKMB % 0.5 %
[2019-12-08] MEDS ORDERED: POTASSIUM CHLORIDE 20 MEQ TABLET PO ONE (13:13)
[2019-12-08] MEDS: METOPROLOL TARTRATE 25 MG TABLET PO SCH ×2 (14:13→20:31)
[2019-12-08] MEDS: HEPARIN DRIP 25,000 UNITS/500 ML PREMIX IV SCH ×2 (15:56→20:12)
[2019-12-08] MEDS: WARFARIN 5 MG TABLET PO SCH ×2 (19:23→19:25)
[2019-12-08] MEDS: ZALEPLON 5 MG CAPSULE PO SCH (20:32)
[2019-12-09] MEDS: ALBUTEROL/IPRATROPIUM 3 ML NEB RESP TX SCH ×4 (01:31→19:17)
[2019-12-09 04:07] LABS: Basophils # 0.1 10*3/uL (0.0-0.2); Basophils % 0.4 % (0.0-0.8); Eosinophils # 0.2 10*3/uL (0.0-0.87); Eosinophils % 1.6 % (0.00-10.9); Hematocrit 30.7 VOL% (35.7-47.0); Immature Granulocytes % 9.2 %; Lymphocytes # 0.6 10*3/uL (1.4-4.0); Lymphocytes % 4.7 % (21.3-54.2); Mean Corpuscular HGB Conc 32.6 GM/DL (32-36); Mean Corpuscular Volume 89.5 FL (87-102); Mean Platelet Volume 13.7 FL (9.6-12.0); Monocytes % 4.9 % (1.7-12.7); NRBC # 0.02 10*3/uL; Neutrophils % 79.2 % (38.7-73.9); Platelet Count 132 T/CUMM (130-400); Red Blood Count 3.43 MC/CUMM (3.8-5.5); Red Cell Distribution Width 16.3 % (9.3-17.3)
[2019-12-09 04:25] LABS: PT Patient Result 20.6 SECS (9.8-11.9)
[2019-12-09 04:28] LABS: Calcium 8.5 MG/DL (8.5-10.1); Osmolality,Calculated 291.1 MOS/KG (273-304)
[2019-12-09 04:31] LABS: Albumin 2.7 G/DL (3.4-5.0); Bilirubin,Direct 2.52 MG/DL (0.0-0.20); Bilirubin,Indirect 1.9 MG/DL (0.0-1.0); Bilirubin,Total 4.4 MG/DL (0.2-1.0); Total Protein 6.2 G/DL (6.4-8.3)
[2019-12-09] MEDS: POTASSIUM CHLORIDE RIDER 20 MEQ in PREMIX 1 EACH IV PRN (05:20)
[2019-12-09] MEDS: INSULIN REGULAR 100 UNIT/ML SUBCUT SCH ×5 (05:27→20:16)
[2019-12-09] MEDS: POTASSIUM CHLORIDE RIDER 10 MEQ in PREMIX 1 EACH IV PRN (06:20)
[2019-12-09 06:43] LABS: Eosinophils 1 % (0-10); Lymphocytes 4 % (20-55); Segmented Neutrophils 89 % (50-85); Total Cells Counted 100
[2019-12-09 06:45] LABS: Atypical Lymphocytes Few; Hypochromasia 2+; Polychromasia Slight; Schistocytes Slight
[2019-12-09 06:46] LABS: Target Cells Few
[2019-12-09 06:47] LABS: Platelet Estimate Adequate
[2019-12-09] MEDS: TICAGRELOR 90 MG TABLET PO SCH ×2 (08:25→20:27)
[2019-12-09] MEDS: AMIODARONE 200 MG TABLET PO SCH ×2 (08:25→20:27)
[2019-12-09] MEDS: PANTOPRAZOLE 40 MG VIAL IV SCH ×2 (08:25→20:28)
[2019-12-09] MEDS: METOPROLOL TARTRATE 25 MG TABLET PO SCH ×2 (08:25→20:27)
[2019-12-09] MEDS: ASPIRIN CHEW 81 MG TABLET PO SCH (08:25)
[2019-12-09] MEDS: SODIUM CHLORIDE 0.45% 1,000 ML IV SCH (08:26)
[2019-12-09] MEDS: CHLORHEXIDINE 0.12% ORAL RINSE 60 ML BOTTLE SWISH/SPIT SCH ×2 (08:26→20:28)
[2019-12-09] MEDS: ASCORBIC ACID 500 MG TABLET PO SCH ×2 (10:11→20:27)
[2019-12-09] MEDS ORDERED: POTASSIUM CHLORIDE 20 MEQ TABLET PO ONE (11:57)
[2019-12-09] MEDS: WARFARIN 5 MG TABLET PO SCH (17:54)
[2019-12-09] MEDS: ZALEPLON 5 MG CAPSULE PO SCH (20:27)
[2019-12-10] MEDS: INSULIN REGULAR 100 UNIT/ML SUBCUT SCH ×5 (00:54→17:04)
[2019-12-10] MEDS: ALBUTEROL/IPRATROPIUM 3 ML NEB RESP TX SCH ×4 (01:01→19:34)
[2019-12-10 04:20] LABS: Basophils # 0.1 10*3/uL (0.0-0.2); Basophils % 0.3 % (0.0-0.8); Eosinophils # 0.2 10*3/uL (0.0-0.87); Eosinophils % 1.2 % (0.00-10.9); Hemoglobin 10.3 GM/DL (12.0-16.0); Immature Granulocytes % 7.2 %; Immature Granulocytes Absolute 1.12 #; Lymphocytes # 0.6 10*3/uL (1.4-4.0); Mean Corpuscular HGB Conc 32.2 GM/DL (32-36); Mean Corpuscular Volume 90.4 FL (87-102); Mean Platelet Volume 12.4 FL (9.6-12.0); Monocytes % 4.9 % (1.7-12.7); NRBC # 0.03 10*3/uL; Neutrophils % 82.4 % (38.7-73.9); Platelet Count 165 T/CUMM (130-400); Red Blood Count 3.54 MC/CUMM (3.8-5.5); Red Cell Distribution Width 16.4 % (9.3-17.3); White Blood Count 15.6 T/CUMM (4-12)
[2019-12-10 04:42] LABS: Eosinophils 2 % (0-10); Hypochromasia 1+; Lymphocytes 5 % (20-55); Ovalocytes Slight; Platelet Estimate Adequate; Segmented Neutrophils 88 % (50-85); Total Cells Counted 100
[2019-12-10 04:43] LABS: Bilirubin,Total 2.6 MG/DL (0.2-1.0); Calcium 8.9 MG/DL (8.5-10.1); Osmolality,Calculated 281.2 MOS/KG (273-304); Total Protein 6.4 G/DL (6.4-8.3)
[2019-12-10] MEDS: SODIUM CHLORIDE 0.45% 1,000 ML IV SCH ×2 (04:45→17:04)
[2019-12-10 04:48] LABS: INR 2.1; PT Patient Result 21.4 SECS (9.8-11.9)
[2019-12-10] MEDS: POTASSIUM CHLORIDE RIDER 20 MEQ in PREMIX 1 EACH IV PRN (04:52)
[2019-12-10 05:06] LABS: Albumin 2.9 G/DL (3.4-5.0); Bilirubin,Direct 1.59 MG/DL (0.0-0.20); Bilirubin,Indirect 0.9 MG/DL (0.0-1.0); Bilirubin,Total 2.5 MG/DL (0.2-1.0); Total Protein 6.5 G/DL (6.4-8.3)
[2019-12-10] MEDS: POTASSIUM CHLORIDE RIDER 10 MEQ in PREMIX 1 EACH IV PRN (05:24)
[2019-12-10] MEDS: METOPROLOL TARTRATE 25 MG TABLET PO SCH ×2 (08:01→21:08)
[2019-12-10] MEDS: PANTOPRAZOLE 40 MG VIAL IV SCH (08:01)
[2019-12-10] MEDS: CHLORHEXIDINE 0.12% ORAL RINSE 60 ML BOTTLE SWISH/SPIT SCH ×2 (08:01→21:13)
[2019-12-10] MEDS: TICAGRELOR 90 MG TABLET PO SCH ×2 (08:01→21:09)
[2019-12-10] MEDS: ASCORBIC ACID 500 MG TABLET PO SCH ×2 (08:01→21:08)
[2019-12-10] MEDS: ASPIRIN CHEW 81 MG TABLET PO SCH (08:01)
[2019-12-10] MEDS: AMIODARONE 200 MG TABLET PO SCH ×2 (08:01→21:09)
[2019-12-10] MEDS ORDERED: oxyCODONE/ACETAMINOPHEN 5-325 MG TABLET PO PRN (16:23)
[2019-12-10] MEDS ORDERED: ONDANSETRON 4 MG/2 ML VIAL IV PRN (16:23)
[2019-12-10] MEDS ORDERED: ACETAMINOPHEN 325 MG TABLET PO PRN (16:23)
[2019-12-10] MEDS ORDERED: MAGNESIUM SULF RIDER 4 GM in PREMIX 1 EACH IV PRN (16:23)
[2019-12-10] MEDS ORDERED: MAGNESIUM SULF RIDER 2 GM in PREMIX 1 EACH IV PRN (16:23)
[2019-12-10] MEDS ORDERED: DEXTROSE 50% 25 GM/50 ML VIAL IV PRN (16:23)
[2019-12-10] MEDS ORDERED: MAGNESIUM HYDROXIDE SUSP 30 ML UDCUP PO PRN (16:23)
[2019-12-10] MEDS ORDERED: SODIUM CHLOR 0.45% KCL 20 MEQ 20 MEQ/1,000 ML BAG IV SCH (16:23)
[2019-12-10] MEDS ORDERED: ALUMINUM/MAGNES/SIMETH MAX STR 30 ML UDCUP PO PRN (16:23)
[2019-12-10] MEDS ORDERED: ZALEPLON 5 MG CAPSULE PO PRN (16:23)
[2019-12-10] MEDS ORDERED: GLUCAGON 1 MG VIAL IM PRN (16:23)
[2019-12-10] MEDS ORDERED: POTASSIUM CHLORIDE 20 MEQ TABLET PO PRN (16:23)
[2019-12-10] MEDS: WARFARIN 5 MG TABLET PO SCH (17:40)
[2019-12-10] MEDS: ZALEPLON 5 MG CAPSULE PO SCH (21:09)
[2019-12-11] MEDS: ALBUTEROL/IPRATROPIUM 3 ML NEB RESP TX SCH ×4 (01:21→19:46)
[2019-12-11] MEDS ORDERED: FUROSEMIDE 40 MG/4 ML VIAL IV ONE (06:00)
[2019-12-11 06:26] LABS: Basophils % 0.3 % (0.0-0.8); Eosinophils # 0.2 10*3/uL (0.0-0.87); Hematocrit 31.7 VOL% (35.7-47.0); Immature Granulocytes % 6.6 %; Immature Granulocytes Absolute 0.76 #; Lymphocytes # 0.7 10*3/uL (1.4-4.0); Lymphocytes % 6.1 % (21.3-54.2); Mean Corpuscular HGB Conc 31.5 GM/DL (32-36); Mean Corpuscular Volume 90.6 FL (87-102); Mean Platelet Volume 12.7 FL (9.6-12.0); NRBC # 0.02 10*3/uL; Platelet Count 203 T/CUMM (130-400); Red Cell Distribution Width 16.7 % (9.3-17.3); White Blood Count 11.6 T/CUMM (4-12)
[2019-12-11 06:44] LABS: INR 2.1; PT Patient Result 21.8 SECS (9.8-11.9)
[2019-12-11 06:49] LABS: Bilirubin,Direct 1.07 MG/DL (0.0-0.20); Bilirubin,Indirect 1.3 MG/DL (0.0-1.0); Bilirubin,Total 2.4 MG/DL (0.2-1.0); Calcium 9.2 MG/DL (8.5-10.1); Osmolality,Calculated 276.1 MOS/KG (273-304)
[2019-12-11 06:54] LABS: Band Neutrophils 1 % (0-10); Eosinophils 1 % (0-10); Hypochromasia 1+; Lymphocytes 8 % (20-55); Nucleated Red Blood Cells 1 (0-5); Platelet Estimate Adequate; Segmented Neutrophils 83 % (50-85); Total Cells Counted 100
[2019-12-11 07:15] LABS: CKMB % 0.6 %; Calcium 8.9 MG/DL (8.5-10.1); Osmolality,Calculated 276.2 MOS/KG (273-304)
[2019-12-11 07:16] LABS: Troponin I 1.23 NG/ML (0.00-0.045)
[2019-12-11] MEDS: ASCORBIC ACID 500 MG TABLET PO SCH ×2 (08:58→21:33)
[2019-12-11] MEDS: FERROUS SULFATE 325 MG TABLET PO SCH (08:58)
[2019-12-11] MEDS: SERTRALINE 100 MG TABLET PO SCH (08:58)
[2019-12-11] MEDS: ASPIRIN CHEW 81 MG TABLET PO SCH (08:58)
[2019-12-11] MEDS: PANTOPRAZOLE 40 MG TABLET PO SCH (08:58)
[2019-12-11] MEDS: TICAGRELOR 90 MG TABLET PO SCH ×2 (08:58→21:33)
[2019-12-11] MEDS: METOPROLOL TARTRATE 25 MG TABLET PO SCH ×2 (08:59→21:33)
[2019-12-11] MEDS: CHLORHEXIDINE 0.12% ORAL RINSE 60 ML BOTTLE SWISH/SPIT SCH ×2 (08:59→21:34)
[2019-12-11] MEDS: AMIODARONE 200 MG TABLET PO SCH ×2 (08:59→21:33)
[2019-12-11] MEDS ORDERED: DOCUSATE SODIUM 100 MG CAPSULE PO SCH (09:00)
[2019-12-11] MEDS: WARFARIN 5 MG TABLET PO SCH (17:15)
[2019-12-11] MEDS: ZALEPLON 5 MG CAPSULE PO SCH (21:33)
[2019-12-12] MEDS: ALBUTEROL/IPRATROPIUM 3 ML NEB RESP TX SCH ×4 (01:37→19:14)
[2019-12-12 06:12] LABS: INR 2.5; PT Patient Result 25.2 SECS (9.8-11.9)
[2019-12-12 06:21] LABS: Albumin 2.8 G/DL (3.4-5.0); Bilirubin,Direct 0.94 MG/DL (0.0-0.20); Bilirubin,Indirect 0.8 MG/DL (0.0-1.0); Bilirubin,Total 1.7 MG/DL (0.2-1.0); Calcium 8.7 MG/DL (8.5-10.1); Osmolality,Calculated 277.1 MOS/KG (273-304); Total Protein 6.6 G/DL (6.4-8.3)
[2019-12-12] MEDS: ASPIRIN CHEW 81 MG TABLET PO SCH (09:28)
[2019-12-12] MEDS: ASCORBIC ACID 500 MG TABLET PO SCH ×2 (09:28→20:55)
[2019-12-12] MEDS: PANTOPRAZOLE 40 MG TABLET PO SCH (09:28)
[2019-12-12] MEDS: METOPROLOL TARTRATE 25 MG TABLET PO SCH ×2 (09:28→21:05)
[2019-12-12] MEDS: SERTRALINE 100 MG TABLET PO SCH (09:28)
[2019-12-12] MEDS: FERROUS SULFATE 325 MG TABLET PO SCH (09:28)
[2019-12-12] MEDS: AMIODARONE 200 MG TABLET PO SCH ×2 (09:29→20:55)
[2019-12-12] MEDS: TICAGRELOR 90 MG TABLET PO SCH ×2 (09:29→20:55)
[2019-12-12] MEDS: CHLORHEXIDINE 0.12% ORAL RINSE 60 ML BOTTLE SWISH/SPIT SCH ×2 (09:38→20:56)
[2019-12-12] MEDS: WARFARIN 5 MG TABLET PO SCH (18:50)
[2019-12-12] MEDS: ZALEPLON 5 MG CAPSULE PO SCH (20:55)
[2019-12-13] MEDS: ALBUTEROL/IPRATROPIUM 3 ML NEB RESP TX SCH ×4 (01:12→20:36)
[2019-12-13 06:15] LABS: Calcium 8.9 MG/DL (8.5-10.1); Osmolality,Calculated 275.1 MOS/KG (273-304)
[2019-12-13 06:30] LABS: INR 2.8; PT Patient Result 28.4 SECS (9.8-11.9)
[2019-12-13] MEDS: ASCORBIC ACID 500 MG TABLET PO SCH ×2 (09:08→21:12)
[2019-12-13] MEDS: SERTRALINE 100 MG TABLET PO SCH (09:08)
[2019-12-13] MEDS: AMIODARONE 200 MG TABLET PO SCH ×2 (09:08→21:11)
[2019-12-13] MEDS: TICAGRELOR 90 MG TABLET PO SCH ×2 (09:08→21:11)
[2019-12-13] MEDS: PANTOPRAZOLE 40 MG TABLET PO SCH (09:09)
[2019-12-13] MEDS: METOPROLOL TARTRATE 25 MG TABLET PO SCH ×2 (09:09→21:11)
[2019-12-13] MEDS: FERROUS SULFATE 325 MG TABLET PO SCH (09:09)
[2019-12-13] MEDS: ASPIRIN CHEW 81 MG TABLET PO SCH (09:11)
[2019-12-13] MEDS: CHLORHEXIDINE 0.12% ORAL RINSE 60 ML BOTTLE SWISH/SPIT SCH ×2 (09:23→21:12)
[2019-12-13] MEDS: MAGNESIUM OXIDE 400 MG TABLET PO SCH ×2 (10:35→21:11)
[2019-12-13] MEDS ORDERED: WARFARIN 2.5 MG TABLET PO ONE (20:00)
[2019-12-13] MEDS: ZALEPLON 5 MG CAPSULE PO SCH (21:12)
[2019-12-14] MEDS: ALBUTEROL/IPRATROPIUM 3 ML NEB RESP TX SCH ×5 (03:23→19:45)
[2019-12-14 05:06] LABS: Basophils % 0.3 % (0.0-0.8); Eosinophils # 0.1 10*3/uL (0.0-0.87); Eosinophils % 1.7 % (0.00-10.9); Hematocrit 37.6 VOL% (35.7-47.0); Hemoglobin 11.8 GM/DL (12.0-16.0); Immature Granulocytes % 1.2 %; Immature Granulocytes Absolute 0.09 #; Lymphocytes # 0.5 10*3/uL (1.4-4.0); Mean Corpuscular HGB Conc 31.4 GM/DL (32-36); Mean Corpuscular Volume 91.3 FL (87-102); Mean Platelet Volume 11.5 FL (9.6-12.0); Monocytes % 6.4 % (1.7-12.7); Neutrophils % 84.4 % (38.7-73.9); Platelet Count 282 T/CUMM (130-400); Red Blood Count 4.12 MC/CUMM (3.8-5.5); Red Cell Distribution Width 16.2 % (9.3-17.3); White Blood Count 7.7 T/CUMM (4-12)
[2019-12-14 06:02] LABS: Albumin 2.8 G/DL (3.4-5.0); Bilirubin,Direct 0.84 MG/DL (0.0-0.20); Bilirubin,Indirect 0.8 MG/DL (0.0-1.0); Bilirubin,Total 1.6 MG/DL (0.2-1.0); CKMB % 0.5 %; Osmolality,Calculated 268.4 MOS/KG (273-304); Total Protein 6.8 G/DL (6.4-8.3)
[2019-12-14 06:08] LABS: Troponin I 0.417 NG/ML (0.00-0.045)
[2019-12-14 08:36] LABS: INR 2.8; PT Patient Result 28.4 SECS (9.8-11.9)
[2019-12-14] MEDS: POTASSIUM CHLORIDE 20 MEQ TABLET PO SCH (09:46)
[2019-12-14] MEDS: ASCORBIC ACID 500 MG TABLET PO SCH ×2 (09:47→20:26)
[2019-12-14] MEDS: MAGNESIUM OXIDE 400 MG TABLET PO SCH ×2 (09:49→20:27)
[2019-12-14] MEDS: TICAGRELOR 90 MG TABLET PO SCH (09:49)
[2019-12-14] MEDS: PANTOPRAZOLE 40 MG TABLET PO SCH (09:50)
[2019-12-14] MEDS: METOPROLOL TARTRATE 25 MG TABLET PO SCH ×2 (09:50→20:26)
[2019-12-14] MEDS: ASPIRIN CHEW 81 MG TABLET PO SCH (09:50)
[2019-12-14] MEDS: FERROUS SULFATE 325 MG TABLET PO SCH (09:51)
[2019-12-14] MEDS: SERTRALINE 100 MG TABLET PO SCH (09:51)
[2019-12-14] MEDS: AMIODARONE 200 MG TABLET PO SCH (09:52)
[2019-12-14] MEDS: CHLORHEXIDINE 0.12% ORAL RINSE 60 ML BOTTLE SWISH/SPIT SCH ×2 (09:52→20:27)
[2019-12-14] MEDS: ROSUVASTATIN 20 MG TABLET PO SCH (20:26)
[2019-12-14] MEDS: ZALEPLON 5 MG CAPSULE PO SCH (20:26)
[2019-12-15] MEDS: ALBUTEROL/IPRATROPIUM 3 ML NEB RESP TX SCH ×4 (01:00→19:55)
[2019-12-15 05:19] LABS: Basophils % 0.2 % (0.0-0.8); Eosinophils # 0.1 10*3/uL (0.0-0.87); Eosinophils % 1.6 % (0.00-10.9); Hematocrit 27.8 VOL% (35.7-47.0); Hemoglobin 8.8 GM/DL (12.0-16.0); Immature Granulocytes Absolute 0.09 #; Lymphocytes % 10.9 % (21.3-54.2); Mean Corpuscular HGB Conc 31.7 GM/DL (32-36); Mean Corpuscular Volume 90.8 FL (87-102); Mean Platelet Volume 11.5 FL (9.6-12.0); Monocytes % 5.5 % (1.7-12.7); Neutrophils % 80.8 % (38.7-73.9); Platelet Count 384 T/CUMM (130-400); Red Blood Count 3.06 MC/CUMM (3.8-5.5); Red Cell Distribution Width 15.9 % (9.3-17.3); White Blood Count 8.7 T/CUMM (4-12)
[2019-12-15 06:16] LABS: Alanine Aminotransferase 224 U/L (13-56); Albumin 2.7 G/DL (3.4-5.0); Alkaline Phosphatase 253 U/L (45-117); Aspartate Amino Transferase 132 U/L (0-37); Bilirubin,Indirect 0.6 MG/DL (0.0-1.0); Blood Urea Nitrogen 21 MG/DL (7-18); Calcium 9.1 MG/DL (8.5-10.1); Estimated Glom Filtration Rate 49 ML/MIN; Glucose 104 MG/DL (74-106); Total Protein 6.6 G/DL (6.4-8.3)
[2019-12-15 06:18] LABS: Troponin I 0.271 NG/ML (0.00-0.045)
[2019-12-15 06:33] LABS: INR 2.2; PT Patient Result 23.1 SECS (9.8-11.9)
[2019-12-15 07:29] LABS: Anisocytosis 1+; Platelet Estimate Normal
[2019-12-15 07:30] LABS: Spherocytes Few
[2019-12-15] MEDS: MAGNESIUM OXIDE 400 MG TABLET PO SCH ×2 (09:24→22:14)
[2019-12-15] MEDS: PANTOPRAZOLE 40 MG TABLET PO SCH (09:24)
[2019-12-15] MEDS: FERROUS SULFATE 325 MG TABLET PO SCH (09:24)
[2019-12-15] MEDS: AMIODARONE 200 MG TABLET PO SCH (09:25)
[2019-12-15] MEDS: ASPIRIN CHEW 81 MG TABLET PO SCH (09:26)
[2019-12-15] MEDS: SERTRALINE 100 MG TABLET PO SCH (09:27)
[2019-12-15] MEDS: ASCORBIC ACID 500 MG TABLET PO SCH ×2 (09:28→22:14)
[2019-12-15] MEDS: CHLORHEXIDINE 0.12% ORAL RINSE 60 ML BOTTLE SWISH/SPIT SCH ×2 (09:35→22:29)
[2019-12-15] MEDS: POTASSIUM CHLORIDE 20 MEQ TABLET PO SCH (09:35)
[2019-12-15] MEDS: TICAGRELOR 90 MG TABLET PO SCH ×2 (09:40→22:14)
[2019-12-15] MEDS: METOPROLOL TARTRATE 25 MG TABLET PO SCH ×2 (09:41→22:19)
[2019-12-15] MEDS ORDERED: WARFARIN 2.5 MG TABLET PO SCH (18:00)
[2019-12-15] MEDS: WARFARIN 5 MG TABLET PO SCH (18:09)
[2019-12-15] MEDS: ZALEPLON 5 MG CAPSULE PO SCH (22:13)
[2019-12-15] MEDS: ROSUVASTATIN 20 MG TABLET PO SCH (22:14)
[2019-12-16] MEDS: ALBUTEROL/IPRATROPIUM 3 ML NEB RESP TX SCH ×4 (02:51→19:13)
[2019-12-16 06:18] LABS: INR 1.8; PT Patient Result 18.8 SECS (9.8-11.9)
[2019-12-16 06:30] LABS: Calcium 8.8 MG/DL (8.5-10.1); Osmolality,Calculated 280.5 MOS/KG (273-304)
[2019-12-16] MEDS: POTASSIUM CHLORIDE 20 MEQ TABLET PO SCH (09:41)
[2019-12-16] MEDS: MAGNESIUM OXIDE 400 MG TABLET PO SCH ×2 (09:42→21:25)
[2019-12-16] MEDS: TICAGRELOR 90 MG TABLET PO SCH ×2 (09:42→21:25)
[2019-12-16] MEDS: ASCORBIC ACID 500 MG TABLET PO SCH ×2 (09:42→21:25)
[2019-12-16] MEDS: SERTRALINE 100 MG TABLET PO SCH (09:43)
[2019-12-16] MEDS: METOPROLOL TARTRATE 25 MG TABLET PO SCH ×2 (09:43→21:27)
[2019-12-16] MEDS: ASPIRIN CHEW 81 MG TABLET PO SCH (09:44)
[2019-12-16] MEDS: AMIODARONE 200 MG TABLET PO SCH (09:44)
[2019-12-16] MEDS: PANTOPRAZOLE 40 MG TABLET PO SCH (09:44)
[2019-12-16] MEDS: FERROUS SULFATE 325 MG TABLET PO SCH (09:44)
[2019-12-16] MEDS: CHLORHEXIDINE 0.12% ORAL RINSE 60 ML BOTTLE SWISH/SPIT SCH ×2 (10:00→21:27)
[2019-12-16] MEDS: WARFARIN 5 MG TABLET PO SCH (18:00)
[2019-12-16] MEDS: ROSUVASTATIN 20 MG TABLET PO SCH (21:25)
[2019-12-16] MEDS: ZALEPLON 5 MG CAPSULE PO SCH (21:25)
[2019-12-17] MEDS: ALBUTEROL/IPRATROPIUM 3 ML NEB RESP TX SCH ×4 (00:09→19:34)
[2019-12-17 06:06] LABS: Basophils % 0.4 % (0.0-0.8); Eosinophils # 0.1 10*3/uL (0.0-0.87); Eosinophils % 1.5 % (0.00-10.9); Hematocrit 27.3 VOL% (35.7-47.0); Hemoglobin 8.7 GM/DL (12.0-16.0); Immature Granulocytes % 0.6 %; Immature Granulocytes Absolute 0.05 #; Lymphocytes # 0.8 10*3/uL (1.4-4.0); Mean Corpuscular HGB Conc 31.9 GM/DL (32-36); Mean Corpuscular Volume 91.3 FL (87-102); Mean Platelet Volume 10.8 FL (9.6-12.0); Monocytes % 4.7 % (1.7-12.7); Neutrophils % 82.8 % (38.7-73.9); Platelet Count 425 T/CUMM (130-400); Red Blood Count 2.99 MC/CUMM (3.8-5.5); White Blood Count 8.2 T/CUMM (4-12)
[2019-12-17 06:25] LABS: Hypochromasia 1+; Microcytosis Slight; Platelet Estimate Adequate
[2019-12-17 06:32] LABS: Calcium 8.8 MG/DL (8.5-10.1); Osmolality,Calculated 277.7 MOS/KG (273-304)
[2019-12-17] MEDS: MAGNESIUM OXIDE 400 MG TABLET PO SCH ×2 (08:37→21:16)
[2019-12-17] MEDS: POTASSIUM CHLORIDE 20 MEQ TABLET PO SCH (08:37)
[2019-12-17] MEDS: SERTRALINE 100 MG TABLET PO SCH (08:37)
[2019-12-17] MEDS: FERROUS SULFATE 325 MG TABLET PO SCH (08:38)
[2019-12-17] MEDS: AMIODARONE 200 MG TABLET PO SCH (08:38)
[2019-12-17] MEDS: ASCORBIC ACID 500 MG TABLET PO SCH ×2 (08:38→21:16)
[2019-12-17] MEDS: TICAGRELOR 90 MG TABLET PO SCH ×2 (08:38→21:15)
[2019-12-17] MEDS: PANTOPRAZOLE 40 MG TABLET PO SCH (08:38)
[2019-12-17] MEDS: ASPIRIN CHEW 81 MG TABLET PO SCH (08:38)
[2019-12-17] MEDS: METOPROLOL TARTRATE 25 MG TABLET PO SCH ×2 (08:38→21:15)
[2019-12-17] MEDS: CHLORHEXIDINE 0.12% ORAL RINSE 60 ML BOTTLE SWISH/SPIT SCH ×2 (08:39→21:20)
[2019-12-17 09:24] LABS: INR 2.2; PT Patient Result 23.1 SECS (9.8-11.9)
[2019-12-17] MEDS: WARFARIN 5 MG TABLET PO SCH (17:50)
[2019-12-17] MEDS: ZALEPLON 5 MG CAPSULE PO SCH (21:15)
[2019-12-17] MEDS: ROSUVASTATIN 20 MG TABLET PO SCH (21:16)
[2019-12-18] MEDS: ALBUTEROL/IPRATROPIUM 3 ML NEB RESP TX SCH ×4 (00:22→19:15)
[2019-12-18 05:34] LABS: Basophils % 0.6 % (0.0-0.8); Eosinophils # 0.1 10*3/uL (0.0-0.87); Eosinophils % 2.3 % (0.00-10.9); Hematocrit 25.5 VOL% (35.7-47.0); Hemoglobin 8.2 GM/DL (12.0-16.0); INR 2.6; Immature Granulocytes Absolute 0.06 #; Lymphocytes % 15.9 % (21.3-54.2); Mean Corpuscular HGB Conc 32.2 GM/DL (32-36); Mean Corpuscular Volume 92.4 FL (87-102); Mean Platelet Volume 10.7 FL (9.6-12.0); Monocytes % 5.8 % (1.7-12.7); Neutrophils % 74.4 % (38.7-73.9); PT Patient Result 26.1 SECS (9.8-11.9); Platelet Count 407 T/CUMM (130-400); Red Blood Count 2.76 MC/CUMM (3.8-5.5); Red Cell Distribution Width 16.2 % (9.3-17.3); White Blood Count 6.2 T/CUMM (4-12)
[2019-12-18 05:52] LABS: Calcium 9.2 MG/DL (8.5-10.1); Osmolality,Calculated 277.5 MOS/KG (273-304)
[2019-12-18] MEDS: PANTOPRAZOLE 40 MG TABLET PO SCH (09:38)
[2019-12-18] MEDS: MAGNESIUM OXIDE 400 MG TABLET PO SCH ×2 (09:38→22:21)
[2019-12-18] MEDS: ASCORBIC ACID 500 MG TABLET PO SCH ×2 (09:38→22:21)
[2019-12-18] MEDS: FERROUS SULFATE 325 MG TABLET PO SCH (09:38)
[2019-12-18] MEDS: AMIODARONE 200 MG TABLET PO SCH (09:38)
[2019-12-18] MEDS: TICAGRELOR 90 MG TABLET PO SCH (09:38)
[2019-12-18] MEDS: ASPIRIN CHEW 81 MG TABLET PO SCH (09:38)
[2019-12-18] MEDS: POTASSIUM CHLORIDE 20 MEQ TABLET PO SCH (09:39)
[2019-12-18] MEDS: METOPROLOL TARTRATE 25 MG TABLET PO SCH ×2 (09:39→22:21)
[2019-12-18] MEDS: SERTRALINE 100 MG TABLET PO SCH (09:39)
[2019-12-18] MEDS: CHLORHEXIDINE 0.12% ORAL RINSE 60 ML BOTTLE SWISH/SPIT SCH ×2 (09:40→22:21)
[2019-12-18] MEDS: WARFARIN 5 MG TABLET PO SCH (19:00)
[2019-12-18] MEDS ORDERED: CLOPIDOGREL 75 MG TABLET PO ONE (21:00)
[2019-12-18] MEDS: ROSUVASTATIN 20 MG TABLET PO SCH (22:20)
[2019-12-18] MEDS: ZALEPLON 5 MG CAPSULE PO SCH (22:21)
[2019-12-19] MEDS: ALBUTEROL/IPRATROPIUM 3 ML NEB RESP TX SCH ×3 (01:16→12:04)
[2019-12-19 06:12] LABS: Basophils % 0.5 % (0.0-0.8); Eosinophils # 0.1 10*3/uL (0.0-0.87); Eosinophils % 2.2 % (0.00-10.9); Hematocrit 27.8 VOL% (35.7-47.0); Hemoglobin 8.7 GM/DL (12.0-16.0); Immature Granulocytes % 0.5 %; Immature Granulocytes Absolute 0.03 #; Lymphocytes # 0.9 10*3/uL (1.4-4.0); Lymphocytes % 14.7 % (21.3-54.2); Mean Corpuscular HGB Conc 31.3 GM/DL (32-36); Mean Corpuscular Volume 93.3 FL (87-102); Mean Platelet Volume 10.9 FL (9.6-12.0); Monocytes % 5.2 % (1.7-12.7); Neutrophils % 76.9 % (38.7-73.9); Platelet Count 407 T/CUMM (130-400); Red Blood Count 2.98 MC/CUMM (3.8-5.5); Red Cell Distribution Width 16.2 % (9.3-17.3); White Blood Count 5.8 T/CUMM (4-12)
[2019-12-19 06:18] LABS: INR 2.9; PT Patient Result 29.6 SECS (9.8-11.9)
[2019-12-19 06:52] LABS: Osmolality,Calculated 277.4 MOS/KG (273-304)
[2019-12-19] MEDS ORDERED: CLOPIDOGREL 75 MG TABLET PO SCH (09:00)
[2019-12-19] MEDS: AMIODARONE 200 MG TABLET PO SCH (09:02)
[2019-12-19] MEDS: POTASSIUM CHLORIDE 20 MEQ TABLET PO SCH (09:02)
[2019-12-19] MEDS: METOPROLOL TARTRATE 25 MG TABLET PO SCH (09:02)
[2019-12-19] MEDS: ASCORBIC ACID 500 MG TABLET PO SCH (09:03)
[2019-12-19] MEDS: MAGNESIUM OXIDE 400 MG TABLET PO SCH (09:03)
[2019-12-19] MEDS: SERTRALINE 100 MG TABLET PO SCH (09:03)
[2019-12-19] MEDS: PANTOPRAZOLE 40 MG TABLET PO SCH (09:03)
[2019-12-19] MEDS: CHLORHEXIDINE 0.12% ORAL RINSE 60 ML BOTTLE SWISH/SPIT SCH (09:04)
[2019-12-19] MEDS: FERROUS SULFATE 325 MG TABLET PO SCH (09:09)
[2019-12-19 12:21] VITALS: BP 94/51
== END 2019-12-19 14:25 | disposition home health service (06) | DRG 162 ==
LOC: SUPCPDRO 11:23 → N.CVR 11:23 → N.ICU 12-07 13:44 → N.TELES 12-10 16:04

== ENCOUNTER 2020-02-13 05:50 | Observation (INO) ==
[2020-02-13] MEDS ORDERED: ONDANSETRON ODT 4 MG TABLET PO STA (06:04)
[2020-02-13] MEDS ORDERED: ENOXAPARIN 100 MG/ML SYRINGE SUBCUT STA (06:04)
[2020-02-13] MEDS ORDERED: FUROSEMIDE 40 MG/4 ML VIAL IV STA (06:04)
[2020-02-13] MEDS ORDERED: ASPIRIN 325 MG TABLET ONE (06:06)
[2020-02-13] MEDS ORDERED: METOPROLOL TARTRATE 5 MG/5 ML VIAL IV ONE (06:06)
[2020-02-13] MEDS ORDERED: METOPROLOL TARTRATE 5 MG/5 ML VIAL IV STA (06:06)
[2020-02-13] MEDS ORDERED: MORPHINE 4 MG/1 ML VIAL IV STA (06:09)
[2020-02-13 06:15] LABS: Basophils # 0.1 10*3/uL (0.0-0.2); Basophils % 0.8 % (0.0-0.8); Eosinophils # 0.2 10*3/uL (0.0-0.87); Eosinophils % 2.9 % (0.00-10.9); Hematocrit 40.6 VOL% (35.7-47.0); Hemoglobin 12.8 GM/DL (12.0-16.0); Immature Granulocytes % 0.2 %; Immature Granulocytes Absolute 0.01 #; Lymphocytes # 2.1 10*3/uL (1.4-4.0); Lymphocytes % 34.9 % (21.3-54.2); Mean Corpuscular HGB Conc 31.5 GM/DL (32-36); Mean Corpuscular Volume 83.4 FL (87-102); Mean Platelet Volume 11.9 FL (9.6-12.0); Monocytes % 6.3 % (1.7-12.7); Neutrophils % 54.9 % (38.7-73.9); Platelet Count 345 T/CUMM (130-400); Red Blood Count 4.87 MC/CUMM (3.8-5.5); Red Cell Distribution Width 15.8 % (9.3-17.3); White Blood Count 5.9 T/CUMM (4-12)
[2020-02-13 06:28] LABS: INR 3.6; PT Patient Result 36.5 SECS (9.8-11.9); Partial Thromboplastin Time 53.7 SECS (23.9-33.8)
[2020-02-13] MEDS ORDERED: diphenhydrAMINE CAP 25 MG CAPSULE PO PRN (06:49)
[2020-02-13] MEDS ORDERED: ZALEPLON 5 MG CAPSULE PO PRN (06:49)
[2020-02-13] MEDS ORDERED: ONDANSETRON 4 MG/2 ML VIAL IV PRN (06:49)
[2020-02-13] MEDS ORDERED: ALUMINUM/MAGNES/SIMETH MAX STR 30 ML UDCUP PO PRN (06:49)
[2020-02-13] MEDS ORDERED: MAGNESIUM SULF RIDER 4 GM in PREMIX 1 EACH IV PRN (06:49)
[2020-02-13] MEDS ORDERED: MAGNESIUM SULF RIDER 2 GM in PREMIX 1 EACH IV PRN (06:49)
[2020-02-13] MEDS ORDERED: SIMETHICONE CHEW 125 MG TABLET PO PRN (06:49)
[2020-02-13 06:59] LABS: Albumin 3.9 G/DL (3.4-5.0); Bilirubin,Total 0.5 MG/DL (0.2-1.0); Calcium 9.1 MG/DL (8.5-10.1); Osmolality,Calculated 282.1 MOS/KG (273-304); Total Protein 7.7 G/DL (6.4-8.3)
[2020-02-13] MEDS ORDERED: POTASSIUM CHLORIDE 20 MEQ TABLET PO ONE (07:24)
[2020-02-13 08:15] LABS: ABG Base Excess -1.7 MMOL/L (-2.5-2.5); ABG Oxygen Saturation 96.1 % (95-100); ABG PCO2 33.6 MM HG (35-48); ABG PH 7.433 (7.35-7.45); ABG PO2 85.3 MM HG (80-95)
[2020-02-13] MEDS: POTASSIUM CHLORIDE 20 MEQ TABLET PO SCH ×2 (09:29→21:07)
[2020-02-13] MEDS: METOPROLOL TARTRATE 25 MG TABLET PO SCH (09:29)
[2020-02-13] MEDS: PANTOPRAZOLE 40 MG TABLET PO SCH (09:29)
[2020-02-13] MEDS: CLOPIDOGREL 75 MG TABLET PO SCH (09:29)
[2020-02-13] MEDS: MAGNESIUM OXIDE 400 MG TABLET PO SCH ×2 (09:29→21:07)
[2020-02-13] MEDS: SPIRONOLACTONE 25 MG TABLET PO SCH (09:29)
[2020-02-13] MEDS ORDERED: WARFARIN 5 MG TABLET PO SCH (18:00)
[2020-02-13] MEDS ORDERED: ROSUVASTATIN 20 MG TABLET PO SCH (21:00)
[2020-02-14] MEDS: METOPROLOL TARTRATE 25 MG TABLET PO SCH ×2 (03:25→09:39)
[2020-02-14 06:20] LABS: Basophils % 0.7 % (0.0-0.8); Eosinophils # 0.2 10*3/uL (0.0-0.87); Eosinophils % 3.6 % (0.00-10.9); Hematocrit 34.7 VOL% (35.7-47.0); Hemoglobin 10.8 GM/DL (12.0-16.0); Immature Granulocytes % 0.2 %; Immature Granulocytes Absolute 0.01 #; Lymphocytes # 1.5 10*3/uL (1.4-4.0); Mean Corpuscular HGB Conc 31.1 GM/DL (32-36); Mean Corpuscular Volume 84.6 FL (87-102); Mean Platelet Volume 12.5 FL (9.6-12.0); Monocytes % 6.4 % (1.7-12.7); Neutrophils % 56.1 % (38.7-73.9); Platelet Count 274 T/CUMM (130-400); Red Cell Distribution Width 15.9 % (9.3-17.3); White Blood Count 4.4 T/CUMM (4-12)
[2020-02-14 06:37] LABS: INR 3.1; PT Patient Result 31.2 SECS (9.8-11.9)
[2020-02-14 06:41] LABS: Calcium 9.3 MG/DL (8.5-10.1); Osmolality,Calculated 278.4 MOS/KG (273-304)
[2020-02-14 06:46] LABS: Albumin 3.4 G/DL (3.4-5.0); Bilirubin,Total 0.6 MG/DL (0.2-1.0); Calcium 9.3 MG/DL (8.5-10.1); Osmolality,Calculated 276.5 MOS/KG (273-304); Total Protein 6.9 G/DL (6.4-8.3)
[2020-02-14] MEDS: SPIRONOLACTONE 25 MG TABLET PO SCH (09:39)
[2020-02-14] MEDS: MAGNESIUM OXIDE 400 MG TABLET PO SCH (09:39)
[2020-02-14] MEDS: PANTOPRAZOLE 40 MG TABLET PO SCH (09:39)
[2020-02-14] MEDS: CLOPIDOGREL 75 MG TABLET PO SCH (09:39)
[2020-02-14 11:50] VITALS: BP 101/59
== END 2020-02-14 13:15 | disposition home or self-care (01) ==
LOC: N.ED 05:50 → N.EDINP 05:50 → N.TELES 11:25
PROVIDERS: ADMIT Internal Medicine Cardiovascular Disease; ATTEND Internal Medicine Cardiovascular Disease

== ENCOUNTER 2020-04-28 17:11 | Inpatient (IN) ==
[2020-04-28] MEDS ORDERED: SODIUM CHLORIDE 0.9% 1,000 ML IV STA (19:55)
[2020-04-28 20:33] LABS: Basophils % 0.3 % (0.0-0.8); Hemoglobin 13.5 GM/DL (12.0-16.0); Immature Granulocytes % 0.3 %; Immature Granulocytes Absolute 0.04 #; Lymphocytes # 0.7 10*3/uL (1.4-4.0); Lymphocytes % 5.9 % (21.3-54.2); Mean Corpuscular HGB Conc 32.1 GM/DL (32-36); Mean Corpuscular Volume 78.4 FL (87-102); Mean Platelet Volume 11.7 FL (9.6-12.0); Monocytes % 2.8 % (1.7-12.7); Neutrophils % 90.7 % (38.7-73.9); Platelet Count 249 T/CUMM (130-400); Red Blood Count 5.36 MC/CUMM (3.8-5.5); Red Cell Distribution Width 16.4 % (9.3-17.3); White Blood Count 12.5 T/CUMM (4-12)
[2020-04-28 20:50] LABS: Albumin 4.1 G/DL (3.4-5.0); Bilirubin,Total 0.5 MG/DL (0.2-1.0); Calcium 9.7 MG/DL (8.5-10.1); Osmolality,Calculated 277.4 MOS/KG (273-304); Total Protein 7.9 G/DL (6.4-8.3)
[2020-04-28 20:59] LABS: Lymphocytes 8 % (20-55); Platelet Estimate Normal; Segmented Neutrophils 88 % (50-85); Total Cells Counted 100
[2020-04-28] MEDS ORDERED: DEXTROSE 50% 25 GM/50 ML VIAL IV PRN (22:02)
[2020-04-28] MEDS ORDERED: GLUCAGON 1 MG VIAL IM PRN (22:02)
[2020-04-28] MEDS ORDERED: HYDROmorphone 2 MG/1 ML VIAL IV PRN (22:09)
[2020-04-28 23:23] LABS: INR 8.3; PT Patient Result 79.7 SECS (9.8-11.9)
[2020-04-28] MEDS: METOPROLOL TARTRATE 25 MG TABLET PO SCH (23:36)
[2020-04-28] MEDS: ROSUVASTATIN 20 MG TABLET PO SCH (23:36)
[2020-04-28] MEDS: SODIUM CHLORIDE 0.9% 1,000 ML IV SCH (23:46)
[2020-04-28] MEDS: metroNIDAZOLE INJ 500 MG in PREMIX 1 EACH IV SCH (23:46)
[2020-04-29] MEDS ORDERED: PHYTONADIONE 10 MG/1 ML AMP SUBCUT ONE (00:45)
[2020-04-29] MEDS: cefTRIAXone 2,000 MG in SYRINGE 1 EACH IV SCH (01:28)
[2020-04-29] MEDS: metroNIDAZOLE INJ 500 MG in PREMIX 1 EACH IV SCH ×3 (05:34→22:24)
[2020-04-29 06:13] LABS: Basophils % 0.4 % (0.0-0.8); Eosinophils % 0.4 % (0.00-10.9); Hematocrit 36.9 VOL% (35.7-47.0); Hemoglobin 11.7 GM/DL (12.0-16.0); Immature Granulocytes % 0.1 %; Immature Granulocytes Absolute 0.01 #; Lymphocytes # 1.7 10*3/uL (1.4-4.0); Lymphocytes % 23.6 % (21.3-54.2); Mean Corpuscular HGB Conc 31.7 GM/DL (32-36); Mean Corpuscular Volume 78.8 FL (87-102); Mean Platelet Volume 11.9 FL (9.6-12.0); Monocytes % 6.2 % (1.7-12.7); Neutrophils % 69.3 % (38.7-73.9); Platelet Count 183 T/CUMM (130-400); Red Blood Count 4.68 MC/CUMM (3.8-5.5); Red Cell Distribution Width 16.3 % (9.3-17.3)
[2020-04-29 06:43] LABS: Hypochromasia 1+; Microcytosis Slight; Ovalocytes Slight; Platelet Estimate Adequate
[2020-04-29 06:45] LABS: Albumin 3.4 G/DL (3.4-5.0); Bilirubin,Total 0.5 MG/DL (0.2-1.0); Calcium 9.3 MG/DL (8.5-10.1); Osmolality,Calculated 277.3 MOS/KG (273-304); Total Protein 6.7 G/DL (6.4-8.3)
[2020-04-29] MEDS ORDERED: ASCORBIC ACID 500 MG TABLET PO PRN (07:35)
[2020-04-29 07:43] LABS: INR 1.9; PT Patient Result 20.2 SECS (9.8-11.9)
[2020-04-29] MEDS: METOPROLOL TARTRATE 25 MG TABLET PO SCH ×3 (08:53→22:22)
[2020-04-29] MEDS: SPIRONOLACTONE 25 MG TABLET PO SCH ×2 (08:54→08:57)
[2020-04-29] MEDS ORDERED: HEPARIN DRIP 25,000 UNITS/500 ML PREMIX IV SCH (10:00)
[2020-04-29] MEDS ORDERED: PRAMOXINE/HYDROCORTISONE RECTAL FOAM 10 GM CAN TOP PRN (10:39)
[2020-04-29] MEDS: WARFARIN 5 MG TABLET PO SCH (18:50)
[2020-04-29] MEDS: ROSUVASTATIN 20 MG TABLET PO SCH (22:22)
[2020-04-30] MEDS: cefTRIAXone 2,000 MG in SYRINGE 1 EACH IV SCH (01:17)
[2020-04-30] MEDS: SODIUM CHLORIDE 0.9% 1,000 ML IV SCH (01:19)
[2020-04-30] MEDS: metroNIDAZOLE INJ 500 MG in PREMIX 1 EACH IV SCH (05:51)
[2020-04-30 05:54] LABS: Basophils % 0.9 % (0.0-0.8); Eosinophils # 0.1 10*3/uL (0.0-0.87); Eosinophils % 1.7 % (0.00-10.9); Hematocrit 34.6 VOL% (35.7-47.0); Hemoglobin 10.7 GM/DL (12.0-16.0); Lymphocytes # 1.5 10*3/uL (1.4-4.0); Mean Corpuscular HGB Conc 30.9 GM/DL (32-36); Mean Corpuscular Volume 79.5 FL (87-102); Mean Platelet Volume 11.3 FL (9.6-12.0); Monocytes % 6.6 % (1.7-12.7); Neutrophils % 54.8 % (38.7-73.9); Platelet Count 182 T/CUMM (130-400); Red Blood Count 4.35 MC/CUMM (3.8-5.5); Red Cell Distribution Width 16.4 % (9.3-17.3); White Blood Count 4.2 T/CUMM (4-12)
[2020-04-30 05:55] LABS: Hemoglobin 10.9 GM/DL (12.0-16.0)
[2020-04-30 06:04] LABS: INR 1.3
[2020-04-30 06:35] LABS: Albumin 3.1 G/DL (3.4-5.0); Bilirubin,Total 0.7 MG/DL (0.2-1.0); Calcium 8.8 MG/DL (8.5-10.1); Osmolality,Calculated 281.8 MOS/KG (273-304); Total Protein 6.3 G/DL (6.4-8.3)
[2020-04-30] MEDS: HEPARIN DRIP 25,000 UNITS/500 ML PREMIX IV SCH (09:09)
[2020-04-30] MEDS: CLOPIDOGREL 75 MG TABLET PO SCH (09:28)
[2020-04-30] MEDS: CEFUROXIME 250 MG TABLET PO SCH ×2 (09:28→20:20)
[2020-04-30] MEDS: METOPROLOL TARTRATE 25 MG TABLET PO SCH ×2 (09:28→20:20)
[2020-04-30] MEDS: SPIRONOLACTONE 25 MG TABLET PO SCH (09:28)
[2020-04-30] MEDS: ONDANSETRON 4 MG/2 ML VIAL IV PRN ×3 (13:33→22:43)
[2020-04-30] MEDS: metroNIDAZOLE 500 MG TABLET PO SCH ×2 (13:34→22:05)
[2020-04-30] MEDS ORDERED: WARFARIN 2.5 MG TABLET PO SCH (18:00)
[2020-04-30] MEDS: ROSUVASTATIN 20 MG TABLET PO SCH (20:20)
[2020-05-01] MEDS: metroNIDAZOLE 500 MG TABLET PO SCH ×3 (05:49→18:44)
[2020-05-01 08:07] LABS: INR 1.1; PT Patient Result 11.7 SECS (9.8-11.9)
[2020-05-01 08:32] LABS: Basophils % 0.4 % (0.0-0.8); Hematocrit 40.7 VOL% (35.7-47.0); Immature Granulocytes % 0.1 %; Immature Granulocytes Absolute 0.01 #; Lymphocytes # 0.8 10*3/uL (1.4-4.0); Mean Corpuscular HGB Conc 32.9 GM/DL (32-36); Mean Corpuscular Volume 75.8 FL (87-102); Mean Platelet Volume 11.4 FL (9.6-12.0); Monocytes % 5.1 % (1.7-12.7); Neutrophils % 83.4 % (38.7-73.9); Red Cell Distribution Width 16.5 % (9.3-17.3)
[2020-05-01 08:34] LABS: Hemoglobin 13.4 GM/DL (12.0-16.0); Platelet Count 253 T/CUMM (130-400); Red Blood Count 5.37 MC/CUMM (3.8-5.5); White Blood Count 7.5 T/CUMM (4-12)
[2020-05-01 08:47] LABS: Bilirubin,Total 0.7 MG/DL (0.2-1.0); Calcium 9.7 MG/DL (8.5-10.1); Osmolality,Calculated 274.5 MOS/KG (273-304); Total Protein 7.9 G/DL (6.4-8.3)
[2020-05-01] MEDS: ONDANSETRON 4 MG/2 ML VIAL IV PRN (08:58)
[2020-05-01] MEDS: CLOPIDOGREL 75 MG TABLET PO SCH (09:00)
[2020-05-01] MEDS: CEFUROXIME 250 MG TABLET PO SCH ×2 (09:00→20:45)
[2020-05-01] MEDS: SPIRONOLACTONE 25 MG TABLET PO SCH (09:00)
[2020-05-01] MEDS: METOPROLOL TARTRATE 25 MG TABLET PO SCH (09:00)
[2020-05-01] MEDS ORDERED: METOPROLOL TARTRATE 25 MG TABLET PO ONE ×2 (09:41→10:00)
[2020-05-01] MEDS ORDERED: POTASSIUM CHLORIDE 20 MEQ TABLET PO ONE (09:45)
[2020-05-01] MEDS ORDERED: CEFUROXIME 250 MG TABLET PO ONE (10:30)
[2020-05-01] MEDS ORDERED: METOCLOPRAMIDE 10 MG/2 ML VIAL IV PRN (11:13)
[2020-05-01] MEDS: SODIUM CHLORIDE 0.9% 1,000 ML IV SCH (11:31)
[2020-05-01] MEDS: PANTOPRAZOLE 40 MG VIAL IV SCH ×2 (12:52→20:43)
[2020-05-01] MEDS: PROMETHAZINE INJ 25 MG in SODIUM CHLORIDE 0.9% 50 ML IV SCH ×3 (14:26→21:32)
[2020-05-01] MEDS: HEPARIN DRIP 25,000 UNITS/500 ML PREMIX IV SCH (14:27)
[2020-05-01] MEDS: WARFARIN 5 MG TABLET PO SCH (17:06)
[2020-05-01] MEDS: ROSUVASTATIN 20 MG TABLET PO SCH (20:43)
[2020-05-01] MEDS: METOPROLOL TARTRATE 50 MG TABLET PO SCH (20:45)
[2020-05-02] MEDS: PROMETHAZINE INJ 25 MG in SODIUM CHLORIDE 0.9% 50 ML IV SCH (02:22)
[2020-05-02] MEDS: SODIUM CHLORIDE 0.9% 1,000 ML IV SCH ×2 (02:23→15:22)
[2020-05-02 05:31] LABS: Basophils % 0.7 % (0.0-0.8); Eosinophils # 0.1 10*3/uL (0.0-0.87); Eosinophils % 1.6 % (0.00-10.9); Hematocrit 38.3 VOL% (35.7-47.0); Immature Granulocytes % 0.3 %; Immature Granulocytes Absolute 0.02 #; Lymphocytes # 2.3 10*3/uL (1.4-4.0); Lymphocytes % 37.6 % (21.3-54.2); Mean Corpuscular HGB Conc 31.3 GM/DL (32-36); Mean Corpuscular Volume 78.6 FL (87-102); Mean Platelet Volume 11.5 FL (9.6-12.0); Monocytes % 6.4 % (1.7-12.7); Neutrophils % 53.4 % (38.7-73.9); Platelet Count 236 T/CUMM (130-400); Red Blood Count 4.87 MC/CUMM (3.8-5.5); Red Cell Distribution Width 16.6 % (9.3-17.3); White Blood Count 6.1 T/CUMM (4-12)
[2020-05-02 05:46] LABS: INR 1.1; PT Patient Result 11.9 SECS (9.8-11.9)
[2020-05-02 06:10] LABS: Albumin 3.4 G/DL (3.4-5.0); Bilirubin,Total 0.7 MG/DL (0.2-1.0); Osmolality,Calculated 283.8 MOS/KG (273-304); Total Protein 6.7 G/DL (6.4-8.3)
[2020-05-02] MEDS ORDERED: POTASSIUM CHLORIDE 20 MEQ TABLET PO ONE ×3 (06:42→11:00)
[2020-05-02] MEDS ORDERED: POTASSIUM CHLORIDE 20 MEQ TABLET PO SCH (07:30)
[2020-05-02] MEDS ORDERED: MAGNESIUM SULF RIDER 1 GM in PREMIX 1 EACH IV ONE (07:30)
[2020-05-02] MEDS: CLOPIDOGREL 75 MG TABLET PO SCH ×2 (10:02→13:36)
[2020-05-02] MEDS: CEFUROXIME 250 MG TABLET PO SCH ×3 (10:02→20:04)
[2020-05-02] MEDS: PROMETHAZINE 25 MG TABLET PO SCH ×4 (10:02→21:30)
[2020-05-02] MEDS: MAGNESIUM OXIDE 400 MG TABLET PO SCH ×3 (10:02→20:04)
[2020-05-02] MEDS: metroNIDAZOLE 500 MG TABLET PO SCH ×3 (10:02→16:05)
[2020-05-02] MEDS: SPIRONOLACTONE 25 MG TABLET PO SCH ×2 (10:02→13:36)
[2020-05-02] MEDS: METOPROLOL TARTRATE 50 MG TABLET PO SCH ×3 (10:03→22:34)
[2020-05-02] MEDS: POTASSIUM CHLORIDE 20 MEQ TABLET PO SCH ×2 (10:03→20:04)
[2020-05-02] MEDS: PANTOPRAZOLE 40 MG VIAL IV SCH ×2 (10:03→22:18)
[2020-05-02] MEDS ORDERED: POTASSIUM CHLORIDE 20 MEQ TABLET PO PRN (10:28)
[2020-05-02] MEDS: ONDANSETRON 4 MG/2 ML VIAL IV PRN ×3 (11:37→22:33)
[2020-05-02] MEDS: PROMETHAZINE INJ 25 MG in SODIUM CHLORIDE 0.9% 50 ML IV PRN (12:03)
[2020-05-02] MEDS: POTASSIUM CHLORIDE RIDER 10 MEQ in PREMIX 1 EACH IV PRN ×5 (15:24→22:18)
[2020-05-02] MEDS: WARFARIN 2.5 MG TABLET PO SCH (18:03)
[2020-05-02] MEDS: LIDOCAINE 5% PATCH TRANSDERM SCH (18:08)
[2020-05-02] MEDS: HEPARIN DRIP 25,000 UNITS/500 ML PREMIX IV SCH (18:12)
[2020-05-02] MEDS: hydrALAZINE 20 MG/1 ML VIAL IV PRN (20:04)
[2020-05-02] MEDS: ROSUVASTATIN 20 MG TABLET PO SCH (20:04)
[2020-05-02] MEDS ORDERED: ALBUTEROL/IPRATROPIUM 3 ML NEB RESP TX PRN (20:34)
[2020-05-03] MEDS ORDERED: FUROSEMIDE 40 MG/4 ML VIAL IV ONE (00:26)
[2020-05-03] MEDS ORDERED: POTASSIUM CHLORIDE 20 MEQ TABLET PO ONE (00:33)
[2020-05-03] MEDS: PROMETHAZINE INJ 25 MG in SODIUM CHLORIDE 0.9% 50 ML IV PRN (01:16)
[2020-05-03 01:38] LABS: Basophils % 0.2 % (0.0-0.8); Hematocrit 42.8 VOL% (35.7-47.0); Hemoglobin 13.8 GM/DL (12.0-16.0); Immature Granulocytes Absolute 0.13 #; Lymphocytes # 0.7 10*3/uL (1.4-4.0); Lymphocytes % 5.4 % (21.3-54.2); Mean Corpuscular HGB Conc 32.2 GM/DL (32-36); Mean Corpuscular Volume 77.3 FL (87-102); Mean Platelet Volume 11.3 FL (9.6-12.0); Monocytes % 3.9 % (1.7-12.7); Neutrophils % 89.5 % (38.7-73.9); Platelet Count 324 T/CUMM (130-400); Red Blood Count 5.54 MC/CUMM (3.8-5.5); Red Cell Distribution Width 17.1 % (9.3-17.3); White Blood Count 12.8 T/CUMM (4-12)
[2020-05-03 01:39] LABS: Albumin 3.8 G/DL (3.4-5.0); Bilirubin,Total 0.8 MG/DL (0.2-1.0); Calcium 8.9 MG/DL (8.5-10.1); Osmolality,Calculated 273.7 MOS/KG (273-304); Total Protein 7.4 G/DL (6.4-8.3)
[2020-05-03] MEDS: PROMETHAZINE 25 MG TABLET PO SCH ×4 (03:10→21:10)
[2020-05-03 03:52] LABS: INR 1.1; PT Patient Result 11.3 SECS (9.8-11.9)
[2020-05-03] MEDS: SODIUM CHLORIDE 0.9% 1,000 ML IV SCH ×2 (07:19→18:02)
[2020-05-03] MEDS: metroNIDAZOLE 500 MG TABLET PO SCH (09:05)
[2020-05-03] MEDS: LIDOCAINE 5% PATCH TRANSDERM SCH (10:27)
[2020-05-03] MEDS: SPIRONOLACTONE 25 MG TABLET PO SCH (10:27)
[2020-05-03] MEDS: CEFUROXIME 250 MG TABLET PO SCH ×2 (10:27→21:10)
[2020-05-03] MEDS: POTASSIUM CHLORIDE 20 MEQ TABLET PO SCH ×2 (10:27→21:28)
[2020-05-03] MEDS: METOPROLOL TARTRATE 50 MG TABLET PO SCH ×2 (10:28→21:10)
[2020-05-03] MEDS: MAGNESIUM OXIDE 400 MG TABLET PO SCH ×2 (10:28→21:13)
[2020-05-03] MEDS: CLOPIDOGREL 75 MG TABLET PO SCH (10:28)
[2020-05-03] MEDS: PANTOPRAZOLE 40 MG VIAL IV SCH ×2 (10:31→21:10)
[2020-05-03] MEDS: hydrALAZINE 20 MG/1 ML VIAL IV PRN (16:32)
[2020-05-03] MEDS: WARFARIN 2.5 MG TABLET PO SCH (18:01)
[2020-05-03] MEDS: ROSUVASTATIN 20 MG TABLET PO SCH (21:13)
[2020-05-03] MEDS: HEPARIN DRIP 25,000 UNITS/500 ML PREMIX IV SCH (21:51)
[2020-05-04] MEDS: PROMETHAZINE 25 MG TABLET PO SCH ×5 (03:33→21:20)
[2020-05-04 05:56] LABS: Basophils % 0.2 % (0.0-0.8); Hemoglobin 13.1 GM/DL (12.0-16.0); Immature Granulocytes % 0.4 %; Immature Granulocytes Absolute 0.03 #; Lymphocytes # 1.1 10*3/uL (1.4-4.0); Lymphocytes % 12.9 % (21.3-54.2); Mean Corpuscular HGB Conc 32.8 GM/DL (32-36); Mean Corpuscular Volume 77.2 FL (87-102); Mean Platelet Volume 11.6 FL (9.6-12.0); Monocytes % 7.3 % (1.7-12.7); Neutrophils % 79.2 % (38.7-73.9); Platelet Count 299 T/CUMM (130-400); Red Blood Count 5.18 MC/CUMM (3.8-5.5); Red Cell Distribution Width 17.6 % (9.3-17.3); White Blood Count 8.5 T/CUMM (4-12)
[2020-05-04 06:06] LABS: PT Patient Result 11.2 SECS (9.8-11.9)
[2020-05-04 06:07] LABS: PT Patient Result 11.2 SECS (9.8-11.9)
[2020-05-04 06:35] LABS: Bilirubin,Total 1.2 MG/DL (0.2-1.0); Calcium 9.3 MG/DL (8.5-10.1); Osmolality,Calculated 278.4 MOS/KG (273-304)
[2020-05-04] MEDS: SODIUM CHLORIDE 0.9% 1,000 ML IV SCH (07:40)
[2020-05-04] MEDS: HEPARIN DRIP 25,000 UNITS/500 ML PREMIX IV SCH ×3 (07:53→22:27)
[2020-05-04] MEDS: SCOPOLAMINE 1.5 MG PATCH TRANSDERM SCH (10:17)
[2020-05-04] MEDS: CLOPIDOGREL 75 MG TABLET PO SCH (10:17)
[2020-05-04] MEDS: MAGNESIUM OXIDE 400 MG TABLET PO SCH ×3 (10:17→21:20)
[2020-05-04] MEDS: METOPROLOL TARTRATE 50 MG TABLET PO SCH ×3 (10:17→21:20)
[2020-05-04] MEDS: CEFUROXIME 250 MG TABLET PO SCH ×3 (10:17→21:20)
[2020-05-04] MEDS: POTASSIUM CHLORIDE 20 MEQ TABLET PO SCH ×3 (10:18→21:20)
[2020-05-04] MEDS: PANTOPRAZOLE 40 MG VIAL IV SCH ×2 (10:18→21:18)
[2020-05-04] MEDS: SPIRONOLACTONE 25 MG TABLET PO SCH (10:27)
[2020-05-04] MEDS: LIDOCAINE 5% PATCH TRANSDERM SCH (10:27)
[2020-05-04] MEDS: POTASSIUM CHLORIDE 20 MEQ/15 ML UDCUP NG SCH ×2 (15:44→21:19)
[2020-05-04] MEDS: WARFARIN 5 MG TABLET PO SCH (17:14)
[2020-05-04] MEDS: ROSUVASTATIN 20 MG TABLET PO SCH ×2 (21:18→21:20)
[2020-05-05] MEDS: PROMETHAZINE 25 MG TABLET PO SCH (04:46)
[2020-05-05 05:29] LABS: Basophils % 0.4 % (0.0-0.8); Eosinophils # 0.1 10*3/uL (0.0-0.87); Eosinophils % 1.1 % (0.00-10.9); Hematocrit 41.3 VOL% (35.7-47.0); Hemoglobin 13.3 GM/DL (12.0-16.0); Immature Granulocytes % 0.3 %; Immature Granulocytes Absolute 0.03 #; Lymphocytes # 1.8 10*3/uL (1.4-4.0); Lymphocytes % 19.6 % (21.3-54.2); Mean Corpuscular HGB Conc 32.2 GM/DL (32-36); Mean Corpuscular Volume 79.1 FL (87-102); Mean Platelet Volume 11.9 FL (9.6-12.0); Monocytes % 8.1 % (1.7-12.7); Neutrophils % 70.5 % (38.7-73.9); Platelet Count 294 T/CUMM (130-400); Red Blood Count 5.22 MC/CUMM (3.8-5.5); Red Cell Distribution Width 17.8 % (9.3-17.3); White Blood Count 8.9 T/CUMM (4-12)
[2020-05-05 05:39] LABS: INR 1.1; PT Patient Result 11.9 SECS (9.8-11.9)
[2020-05-05 05:40] LABS: INR 1.1
[2020-05-05 05:57] LABS: Albumin 3.7 G/DL (3.4-5.0); Bilirubin,Total 0.9 MG/DL (0.2-1.0); Calcium 9.3 MG/DL (8.5-10.1); Osmolality,Calculated 277.5 MOS/KG (273-304); Total Protein 7.2 G/DL (6.4-8.3)
[2020-05-05] MEDS: PANTOPRAZOLE 40 MG VIAL IV SCH ×2 (10:46→22:06)
[2020-05-05] MEDS: CEFUROXIME 250 MG TABLET PO SCH ×2 (10:46→22:03)
[2020-05-05] MEDS: POTASSIUM CHLORIDE 20 MEQ TABLET PO SCH ×2 (10:46→22:03)
[2020-05-05] MEDS: POTASSIUM CHLORIDE 20 MEQ/15 ML UDCUP NG SCH ×2 (10:46→22:05)
[2020-05-05] MEDS: SPIRONOLACTONE 25 MG TABLET PO SCH (10:47)
[2020-05-05] MEDS: MAGNESIUM OXIDE 400 MG TABLET PO SCH ×2 (10:47→22:04)
[2020-05-05] MEDS: METOPROLOL TARTRATE 50 MG TABLET PO SCH ×2 (10:47→22:05)
[2020-05-05] MEDS: CLOPIDOGREL 75 MG TABLET PO SCH (10:47)
[2020-05-05] MEDS: LIDOCAINE 5% PATCH TRANSDERM SCH (10:48)
[2020-05-05] MEDS: POTASSIUM CHLORIDE RIDER 10 MEQ in PREMIX 1 EACH IV PRN ×3 (10:49→13:03)
[2020-05-05] MEDS: METOCLOPRAMIDE 10 MG/2 ML VIAL IV SCH ×2 (11:23→17:55)
[2020-05-05] MEDS: SODIUM CHLORIDE 0.9% 1,000 ML IV SCH (12:52)
[2020-05-05] MEDS: WARFARIN 5 MG TABLET PO SCH (17:55)
[2020-05-05] MEDS: ROSUVASTATIN 20 MG TABLET PO SCH (22:03)
[2020-05-06] MEDS: HEPARIN DRIP 25,000 UNITS/500 ML PREMIX IV SCH ×2 (01:04→10:51)
[2020-05-06] MEDS: METOCLOPRAMIDE 10 MG/2 ML VIAL IV SCH ×4 (01:05→17:25)
[2020-05-06] MEDS: POTASSIUM CHLORIDE RIDER 10 MEQ in PREMIX 1 EACH IV PRN ×3 (02:04→05:30)
[2020-05-06] MEDS: POTASSIUM CHLORIDE 20 MEQ/15 ML UDCUP NG SCH ×3 (06:04→21:33)
[2020-05-06 06:27] LABS: INR 1.1
[2020-05-06 07:47] LABS: Basophils % 0.5 % (0.0-0.8); Eosinophils # 0.1 10*3/uL (0.0-0.87); Eosinophils % 1.9 % (0.00-10.9); Hematocrit 40.3 VOL% (35.7-47.0); Immature Granulocytes % 0.3 %; Immature Granulocytes Absolute 0.02 #; Lymphocytes # 1.4 10*3/uL (1.4-4.0); Lymphocytes % 18.6 % (21.3-54.2); Mean Corpuscular HGB Conc 32.3 GM/DL (32-36); Mean Corpuscular Volume 79.2 FL (87-102); Mean Platelet Volume 12.3 FL (9.6-12.0); Monocytes % 6.6 % (1.7-12.7); Neutrophils % 72.1 % (38.7-73.9); Platelet Count 239 T/CUMM (130-400); Red Blood Count 5.09 MC/CUMM (3.8-5.5); Red Cell Distribution Width 17.6 % (9.3-17.3); White Blood Count 7.5 T/CUMM (4-12)
[2020-05-06 09:23] LABS: Calcium 9.1 MG/DL (8.5-10.1); Osmolality,Calculated 279.4 MOS/KG (273-304)
[2020-05-06] MEDS: CEFUROXIME 250 MG TABLET PO SCH ×2 (10:49→21:33)
[2020-05-06] MEDS: POTASSIUM CHLORIDE 20 MEQ TABLET PO SCH ×2 (10:49→21:34)
[2020-05-06] MEDS: MAGNESIUM OXIDE 400 MG TABLET PO SCH ×2 (10:49→21:35)
[2020-05-06] MEDS: SPIRONOLACTONE 25 MG TABLET PO SCH (10:49)
[2020-05-06] MEDS: METOPROLOL TARTRATE 50 MG TABLET PO SCH ×2 (10:49→21:35)
[2020-05-06] MEDS: CLOPIDOGREL 75 MG TABLET PO SCH (10:49)
[2020-05-06] MEDS: PANTOPRAZOLE 40 MG VIAL IV SCH ×2 (10:50→21:36)
[2020-05-06] MEDS: LIDOCAINE 5% PATCH TRANSDERM SCH (10:52)
[2020-05-06] MEDS: SODIUM CHLORIDE 0.9% 1,000 ML IV SCH (12:41)
[2020-05-06] MEDS ORDERED: WARFARIN 7.5 MG TABLET PO SCH (18:00)
[2020-05-06] MEDS ORDERED: WARFARIN 5 MG TABLET PO SCH (18:00)
[2020-05-06] MEDS: ROSUVASTATIN 20 MG TABLET PO SCH (21:35)
[2020-05-07] MEDS: METOCLOPRAMIDE 10 MG/2 ML VIAL IV SCH ×4 (00:33→17:48)
[2020-05-07] MEDS: HEPARIN DRIP 25,000 UNITS/500 ML PREMIX IV SCH ×3 (02:58→11:29)
[2020-05-07 06:12] LABS: Basophils % 0.3 % (0.0-0.8); Eosinophils # 0.2 10*3/uL (0.0-0.87); Eosinophils % 2.7 % (0.00-10.9); Hematocrit 36.9 VOL% (35.7-47.0); Hemoglobin 11.7 GM/DL (12.0-16.0); Immature Granulocytes % 0.3 %; Immature Granulocytes Absolute 0.02 #; Lymphocytes # 1.7 10*3/uL (1.4-4.0); Mean Corpuscular HGB Conc 31.7 GM/DL (32-36); Mean Corpuscular Volume 79.7 FL (87-102); Mean Platelet Volume 12.2 FL (9.6-12.0); Monocytes % 7.5 % (1.7-12.7); Neutrophils % 62.2 % (38.7-73.9); Platelet Count 203 T/CUMM (130-400); Red Blood Count 4.63 MC/CUMM (3.8-5.5); Red Cell Distribution Width 18.1 % (9.3-17.3); White Blood Count 6.2 T/CUMM (4-12)
[2020-05-07 06:24] LABS: PT Patient Result 11.1 SECS (9.8-11.9)
[2020-05-07 06:33] LABS: Calcium 9.1 MG/DL (8.5-10.1); Osmolality,Calculated 279.3 MOS/KG (273-304)
[2020-05-07] MEDS: CEFUROXIME 250 MG TABLET PO SCH ×2 (09:41→21:17)
[2020-05-07] MEDS: POTASSIUM CHLORIDE 20 MEQ TABLET PO SCH ×2 (09:41→21:26)
[2020-05-07] MEDS: POTASSIUM CHLORIDE 20 MEQ/15 ML UDCUP NG SCH ×2 (09:41→21:15)
[2020-05-07] MEDS: CLOPIDOGREL 75 MG TABLET PO SCH (09:41)
[2020-05-07] MEDS: METOPROLOL TARTRATE 50 MG TABLET PO SCH ×2 (09:42→21:15)
[2020-05-07] MEDS: PANTOPRAZOLE 40 MG VIAL IV SCH ×2 (09:42→21:26)
[2020-05-07] MEDS: SCOPOLAMINE 1.5 MG PATCH TRANSDERM SCH (09:42)
[2020-05-07] MEDS: MAGNESIUM OXIDE 400 MG TABLET PO SCH ×2 (09:42→21:15)
[2020-05-07] MEDS: LIDOCAINE 5% PATCH TRANSDERM SCH (09:42)
[2020-05-07] MEDS: POTASSIUM CHLORIDE RIDER 10 MEQ in PREMIX 1 EACH IV PRN ×5 (10:00→16:41)
[2020-05-07] MEDS: SPIRONOLACTONE 25 MG TABLET PO SCH (11:04)
[2020-05-07] MEDS: SODIUM CHLORIDE 0.9% 1,000 ML IV SCH (11:30)
[2020-05-07] MEDS: ENOXAPARIN 60 MG/0.6 ML SYRINGE SUBCUT SCH (17:45)
[2020-05-07 17:56] LABS: CDT Result Negative (Negative); CDT Specimen Source STOOL
[2020-05-07] MEDS ORDERED: WARFARIN 5 MG TABLET PO SCH (18:00)
[2020-05-07] MEDS: ROSUVASTATIN 20 MG TABLET PO SCH (21:26)
[2020-05-08] MEDS: METOCLOPRAMIDE 10 MG/2 ML VIAL IV SCH ×2 (00:27→06:16)
[2020-05-08] MEDS: ENOXAPARIN 60 MG/0.6 ML SYRINGE SUBCUT SCH (06:08)
[2020-05-08 06:18] LABS: Basophils % 0.5 % (0.0-0.8); Eosinophils # 0.2 10*3/uL (0.0-0.87); Eosinophils % 3.3 % (0.00-10.9); Hematocrit 36.2 VOL% (35.7-47.0); Hemoglobin 11.4 GM/DL (12.0-16.0); Immature Granulocytes % 1.2 %; Immature Granulocytes Absolute 0.07 #; Lymphocytes % 32.4 % (21.3-54.2); Mean Corpuscular HGB Conc 31.5 GM/DL (32-36); Mean Corpuscular Volume 80.1 FL (87-102); Mean Platelet Volume 12.1 FL (9.6-12.0); Monocytes % 6.7 % (1.7-12.7); Neutrophils % 55.9 % (38.7-73.9); Platelet Count 192 T/CUMM (130-400); Red Blood Count 4.52 MC/CUMM (3.8-5.5); Red Cell Distribution Width 18.2 % (9.3-17.3); White Blood Count 6.1 T/CUMM (4-12)
[2020-05-08 06:32] LABS: INR 1.1; PT Patient Result 11.7 SECS (9.8-11.9)
[2020-05-08 06:39] LABS: Eosinophils 3 % (0-10); Hypochromasia 1+; Lymphocytes 44 % (20-55); Microcytosis 1+; Ovalocytes Slight; Platelet Estimate Adequate; Segmented Neutrophils 47 % (50-85); Total Cells Counted 100
[2020-05-08 06:53] LABS: Calcium 9.5 MG/DL (8.5-10.1); Osmolality,Calculated 271.7 MOS/KG (273-304)
[2020-05-08] MEDS: SODIUM CHLORIDE 0.9% 1,000 ML IV SCH (09:16)
[2020-05-08] MEDS: METOCLOPRAMIDE 10 MG/10 ML UDCUP PO SCH ×3 (10:43→15:50)
[2020-05-08] MEDS: CLOPIDOGREL 75 MG TABLET PO SCH (10:44)
[2020-05-08] MEDS: MAGNESIUM OXIDE 400 MG TABLET PO SCH (10:44)
[2020-05-08] MEDS: PANTOPRAZOLE 40 MG VIAL IV SCH (10:44)
[2020-05-08] MEDS: SPIRONOLACTONE 25 MG TABLET PO SCH (10:44)
[2020-05-08] MEDS: POTASSIUM CHLORIDE 20 MEQ TABLET PO SCH (10:47)
[2020-05-08] MEDS: METOPROLOL TARTRATE 50 MG TABLET PO SCH (10:47)
[2020-05-08] MEDS: LIDOCAINE 5% PATCH TRANSDERM SCH (10:47)
[2020-05-08] MEDS: CEFUROXIME 250 MG TABLET PO SCH (10:47)
[2020-05-08] MEDS: POTASSIUM CHLORIDE 20 MEQ/15 ML UDCUP NG SCH (10:58)
[2020-05-08 11:32] VITALS: BP 147/85
== END 2020-05-08 16:04 | disposition home or self-care (01) | DRG 661 ==
LOC: N.ED 17:11 → N.EDINP 17:11 → N.3E 22:41 → SUATTDRO 04-30 14:16
PROVIDERS: ADMIT Internal Medicine; ATTEND Internal Medicine

== ENCOUNTER 2020-06-27 01:08 | Observation (INO) ==
[2020-06-27 01:23] LABS: Basophils % 0.4 % (0.0-0.8); Eosinophils # 0.2 10*3/uL (0.0-0.87); Eosinophils % 1.6 % (0.00-10.9); Hematocrit 38.3 VOL% (35.7-47.0); Hemoglobin 12.1 GM/DL (12.0-16.0); Immature Granulocytes % 0.2 %; Immature Granulocytes Absolute 0.02 #; Lymphocytes # 1.9 10*3/uL (1.4-4.0); Lymphocytes % 19.9 % (21.3-54.2); Mean Corpuscular HGB Conc 31.6 GM/DL (32-36); Mean Corpuscular Volume 81.1 FL (87-102); Mean Platelet Volume 11.3 FL (9.6-12.0); Monocytes % 5.8 % (1.7-12.7); Neutrophils % 72.1 % (38.7-73.9); Platelet Count 280 T/CUMM (130-400); Red Blood Count 4.72 MC/CUMM (3.8-5.5); White Blood Count 9.4 T/CUMM (4-12)
[2020-06-27] MEDS ORDERED: ASPIRIN 325 MG TABLET PO STA (01:32)
[2020-06-27] MEDS ORDERED: MORPHINE 4 MG/1 ML VIAL IV STA (01:32)
[2020-06-27] MEDS ORDERED: ONDANSETRON 4 MG/2 ML VIAL IV STA (01:32)
[2020-06-27] MEDS ORDERED: NITROGLYCERIN 2% OINT 1 INCH/GM PACK TOP STA (01:32)
[2020-06-27 01:44] LABS: Albumin 3.4 G/DL (3.4-5.0); Bilirubin,Total 0.4 MG/DL (0.2-1.0); Osmolality,Calculated 278.3 MOS/KG (273-304); Potassium 3.1 MMOL/L (3.5-5.1)
[2020-06-27] MEDS ORDERED: POTASSIUM CHLORIDE 20 MEQ TABLET PO STA (01:52)
[2020-06-27 02:14] LABS: INR 2.1; PT Patient Result 21.4 SECS (9.8-11.9)
[2020-06-27] MEDS ORDERED: ACETAMINOPHEN 325 MG TABLET PO PRN (02:34)
[2020-06-27] MEDS ORDERED: MORPHINE 4 MG/1 ML VIAL IV PRN (02:34)
[2020-06-27] MEDS ORDERED: guaiFENesin/DM ER 600-30 MG TABLET PO PRN (02:34)
[2020-06-27] MEDS ORDERED: ONDANSETRON 4 MG/2 ML VIAL IV PRN (02:34)
[2020-06-27] MEDS ORDERED: NICOTINE 21 MG/24 HR PATCH TRANSDERM PRN (02:34)
[2020-06-27] MEDS ORDERED: ALUMINUM/MAGNES/SIMETH MAX STR 30 ML UDCUP PO PRN (02:34)
[2020-06-27] MEDS ORDERED: hydrALAZINE 20 MG/1 ML VIAL IV PRN (02:34)
[2020-06-27] MEDS ORDERED: DEXTROSE 50% 25 GM/50 ML VIAL IV PRN (02:34)
[2020-06-27] MEDS ORDERED: GLUCAGON 1 MG VIAL IM PRN (02:34)
[2020-06-27 02:54] LABS: Bacteria,Urine Occasional /HPF (Few); Bilirubin,Urine Negative (Negative); Blood, Urine Negative (Negative); Glucose,Urine (UA) Negative (Negative); Ketones,Urine Negative (Negative); Mucus,Urine Occasional /LPF (Occasional); Nitrite,Urine Negative (Negative); Protein,Urine Negative; RBC,Urine 2 /HPF (0-4); Squamous Epithelial Cell,Urine Few /HPF (0-10); Urine Appearance Slightly Hazy (Clear); Urine Color Yellow (Yellow); Urine Specific Gravity 1.015 (1.001-1.035); Urine Urobilinogen < 2.0 EU/DL (0.2-1.0); WBC,Urine 4 /HPF (0-6)
[2020-06-27 02:55] LABS: Risk Ratio 3.56; VLDL CHOLESTEROL 48.4 MG/DL
[2020-06-27 08:06] LABS: Calcium 8.9 MG/DL (8.5-10.1); Potassium 3.3 MMOL/L (3.5-5.1)
[2020-06-27] MEDS ORDERED: CLOPIDOGREL 75 MG TABLET PO SCH (09:00)
[2020-06-27] MEDS ORDERED: SPIRONOLACTONE 25 MG TABLET PO SCH (09:00)
[2020-06-27] MEDS ORDERED: METOPROLOL TARTRATE 25 MG TABLET PO SCH (09:00)
[2020-06-27 11:41] VITALS: BP 110/59
[2020-06-27] MEDS ORDERED: WARFARIN 5 MG TABLET PO SCH (18:00)
[2020-06-27] MEDS ORDERED: WARFARIN 1 MG TABLET PO SCH (18:00)
[2020-06-27] MEDS ORDERED: ROSUVASTATIN 20 MG TABLET PO SCH (21:00)
== END 2020-06-27 12:01 | disposition home or self-care (01) ==
LOC: N.ED 01:08 → N.EDINP 01:08 → N.TELEN 07:36
PROVIDERS: ADMIT Internal Medicine Geriatric Medicine; ATTEND Internal Medicine Geriatric Medicine

== ENCOUNTER 2020-08-13 03:39 | Observation (INO) ==
[2020-08-13 04:08] LABS: Basophils % 0.6 % (0.0-0.8); Eosinophils # 0.2 10*3/uL (0.0-0.87); Eosinophils % 2.2 % (0.00-10.9); Hematocrit 38.2 VOL% (35.7-47.0); Hemoglobin 11.9 GM/DL (12.0-16.0); Immature Granulocytes % 0.3 %; Immature Granulocytes Absolute 0.02 #; Lymphocytes # 2.2 10*3/uL (1.4-4.0); Lymphocytes % 31.7 % (21.3-54.2); Mean Corpuscular HGB Conc 31.2 GM/DL (32-36); Mean Corpuscular Volume 81.3 FL (87-102); Mean Platelet Volume 11.4 FL (9.6-12.0); Monocytes % 5.2 % (1.7-12.7); Platelet Count 246 T/CUMM (130-400); Red Cell Distribution Width 15.5 % (9.3-17.3); White Blood Count 6.9 T/CUMM (4-12)
[2020-08-13] MEDS ORDERED: ALBUTEROL/IPRATROPIUM 3 ML NEB RESP TX STA (04:20)
[2020-08-13] MEDS ORDERED: methylPREDNISolone SOD SUC 125 MG/2 ML VIAL IV STA (04:20)
[2020-08-13 04:38] LABS: Albumin 3.6 G/DL (3.4-5.0); Bilirubin,Total 0.5 MG/DL (0.2-1.0); Calcium 8.4 MG/DL (8.5-10.1); Osmolality,Calculated 285.7 MOS/KG (273-304); Potassium 3.5 MMOL/L (3.5-5.1); Total Protein 6.7 G/DL (6.4-8.2)
[2020-08-13] MEDS ORDERED: FUROSEMIDE 40 MG/4 ML VIAL IV STA (04:52)
[2020-08-13 04:58] LABS: INR 2.9; PT Patient Result 29.3 SECS (9.8-11.9)
[2020-08-13] MEDS ORDERED: MAGNESIUM SULF RIDER 2 GM in PREMIX 1 EACH IV STA (05:02)
[2020-08-13] MEDS ORDERED: MAGNESIUM SULF RIDER 4 GM in PREMIX 1 EACH IV PRN (05:14)
[2020-08-13] MEDS ORDERED: ZALEPLON 5 MG CAPSULE PO PRN (05:14)
[2020-08-13] MEDS ORDERED: ONDANSETRON 4 MG/2 ML VIAL IV PRN (05:14)
[2020-08-13] MEDS ORDERED: GLUCAGON 1 MG VIAL IM PRN ×2 (05:14→05:21)
[2020-08-13] MEDS ORDERED: MAGNESIUM SULF RIDER 2 GM in PREMIX 1 EACH IV PRN (05:14)
[2020-08-13] MEDS ORDERED: DEXTROSE 50% 25 GM/50 ML VIAL IV PRN ×2 (05:14→05:21)
[2020-08-13] MEDS ORDERED: POTASSIUM CHLORIDE 20 MEQ TABLET PO ONE (07:56)
[2020-08-13] MEDS: INSULIN REGULAR 100 UNIT/ML SUBCUT SCH ×4 (08:03→20:20)
[2020-08-13] MEDS: METOPROLOL TARTRATE 50 MG TABLET PO SCH ×2 (08:48→20:24)
[2020-08-13] MEDS: SPIRONOLACTONE 50 MG TABLET PO SCH (08:48)
[2020-08-13] MEDS: CLOPIDOGREL 75 MG TABLET PO SCH (08:48)
[2020-08-13] MEDS: SACUBITRIL/VALSARTAN 49-51 MG TABLET PO SCH ×2 (08:49→20:24)
[2020-08-13] MEDS: FUROSEMIDE 40 MG/4 ML VIAL IV SCH ×5 (08:50→18:32)
[2020-08-13] MEDS ORDERED: PANTOPRAZOLE 40 MG TABLET PO SCH (09:00)
[2020-08-13] MEDS ORDERED: ASCORBIC ACID 500 MG TABLET PO PRN (09:40)
[2020-08-13] MEDS ORDERED: DOCUSATE SODIUM 100 MG/10 ML UDCUP PO PRN (09:40)
[2020-08-13] MEDS: ACETAMINOPHEN 325 MG TABLET PO PRN ×2 (11:25→21:51)
[2020-08-13] MEDS ORDERED: FUROSEMIDE 40 MG/4 ML VIAL IV SCH (12:00)
[2020-08-13] MEDS ORDERED: FUROSEMIDE 40 MG/4 ML VIAL ONE ×2 (16:31→16:33)
[2020-08-13] MEDS ORDERED: WARFARIN 3 MG TABLET PO SCH (18:00)
[2020-08-13] MEDS: GABAPENTIN 300 MG CAPSULE PO SCH (20:24)
[2020-08-13] MEDS ORDERED: ROSUVASTATIN 20 MG TABLET PO SCH (21:00)
[2020-08-14 05:19] LABS: Basophils % 0.1 % (0.0-0.8); Hematocrit 41.6 VOL% (35.7-47.0); Hemoglobin 13.6 GM/DL (12.0-16.0); Immature Granulocytes % 0.7 %; Immature Granulocytes Absolute 0.14 #; Lymphocytes # 1.1 10*3/uL (1.4-4.0); Lymphocytes % 5.1 % (21.3-54.2); Mean Corpuscular HGB Conc 32.7 GM/DL (32-36); Mean Corpuscular Volume 79.5 FL (87-102); Mean Platelet Volume 11.6 FL (9.6-12.0); Monocytes % 4.2 % (1.7-12.7); Neutrophils % 89.9 % (38.7-73.9); Platelet Count 335 T/CUMM (130-400); Red Blood Count 5.23 MC/CUMM (3.8-5.5); Red Cell Distribution Width 15.7 % (9.3-17.3); White Blood Count 21.2 T/CUMM (4-12)
[2020-08-14 05:35] LABS: INR 3.1; PT Patient Result 32.3 SECS (9.8-11.9)
[2020-08-14 05:41] LABS: Albumin 4.1 G/DL (3.4-5.0); Bilirubin,Total 0.8 MG/DL (0.2-1.0); Lymphocytes 2 % (20-55); Platelet Estimate Adequate; Potassium 4.8 MMOL/L (3.5-5.1); Segmented Neutrophils 91 % (50-85); Total Cells Counted 100; Total Protein 8.2 G/DL (6.4-8.2)
[2020-08-14] MEDS ORDERED: PANTOPRAZOLE 40 MG TABLET PO SCH (08:00)
[2020-08-14] MEDS: INSULIN REGULAR 100 UNIT/ML SUBCUT SCH ×2 (08:39→12:17)
[2020-08-14] MEDS: SACUBITRIL/VALSARTAN 49-51 MG TABLET PO SCH (08:42)
[2020-08-14] MEDS: SPIRONOLACTONE 50 MG TABLET PO SCH (08:43)
[2020-08-14] MEDS: GABAPENTIN 300 MG CAPSULE PO SCH (08:43)
[2020-08-14] MEDS: CLOPIDOGREL 75 MG TABLET PO SCH (08:43)
[2020-08-14] MEDS: METOPROLOL TARTRATE 50 MG TABLET PO SCH (08:43)
[2020-08-14] MEDS: FUROSEMIDE 40 MG/4 ML VIAL IV SCH (08:43)
[2020-08-14 11:29] VITALS: BP 114/64
[2020-08-14] MEDS ORDERED: WARFARIN 2.5 MG TABLET PO SCH (18:00)
== END 2020-08-14 13:19 | disposition home health service (06) ==
LOC: N.EDINP 03:39 → N.ED 03:39 → SUATTDRO 05:14 → N.EDINP 06:16 → N.4E 06:47
PROVIDERS: ADMIT Internal Medicine; ATTEND Internal Medicine

== ENCOUNTER 2021-08-04 13:59 | Inpatient (IN) ==
[2021-08-04 15:00] LABS: Albumin 3.9 G/DL (3.4-5.0); Bilirubin,Total 0.9 MG/DL (0.20-1.00); Calcium 9.4 MG/DL (8.5-10.1); Potassium 3.8 MMOL/L (3.5-5.1)
[2021-08-04 15:21] LABS: Basophils % 0.4 % (0.0-0.8); Eosinophils % 0.3 % (0.00-10.9); Hematocrit 44.5 VOL% (35.7-47.0); Hemoglobin 14.5 GM/DL (12.0-16.0); Immature Granulocytes % 0.5 %; Immature Granulocytes Absolute 0.05 #; Lymphocytes # 0.4 10*3/uL (1.4-4.0); Lymphocytes % 3.8 % (21.3-54.2); Mean Corpuscular HGB Conc 32.6 GM/DL (32-36); Mean Corpuscular Volume 83.8 FL (87-102); Monocytes # 0.3 10*3/uL (0.11-0.8); Platelet Count 183 T/CUMM (130-400); Red Blood Count 5.31 MC/CUMM (3.8-5.5); Red Cell Distribution Width 15.6 % (9.3-17.3); White Blood Count 9.3 T/CUMM (4-12)
[2021-08-04] MEDS ORDERED: SODIUM CHLORIDE 0.9% 1,000 ML IV STA (16:09)
[2021-08-04] MEDS ORDERED: ONDANSETRON 4 MG/2 ML VIAL IV ONE (16:09)
[2021-08-04 16:10] LABS: Band Neutrophils 3 % (0-10); Lymphocytes 3 % (20-55); Microcytosis 1+; Total Cells Counted 100
[2021-08-04 16:11] LABS: Hypochromia Slight; Platelet Estimate Decreased
[2021-08-04 16:25] LABS: Mucus,Urine Occasional /LPF (Occasional); RBC,Urine 10 /HPF (0-4)
[2021-08-04 16:26] LABS: Urine Appearance Clear (Clear); Urine Color Yellow (Yellow); Urine pH 7.5 (4.5-8.0)
[2021-08-04 16:27] LABS: Bilirubin,Urine Negative (Negative); Blood, Urine Small mg/dL (Negative); Glucose,Urine (UA) Negative (Negative); Ketones,Urine Negative (Negative); Nitrite,Urine Negative (Negative); Protein,Urine Negative (Negative); Urine Urobilinogen < 2.0 eU/dL (<2.0)
[2021-08-04 17:15] LABS: PT Patient Result 31.4 SECS (10.5-12.0)
[2021-08-04] MEDS ORDERED: PIPERACILLIN/TAZOBACTAM 3,375 MG in SODIUM CHLORIDE 0.9% 100 ML IV STA (17:26)
[2021-08-04] MEDS: ACETAMINOPHEN 325 MG TABLET PO PRN (18:45)
[2021-08-04] MEDS: LACTATED RINGERS 1,000 ML IV SCH (18:46)
[2021-08-05] MEDS: ACETAMINOPHEN 325 MG TABLET PO PRN ×3 (03:35→15:31)
[2021-08-05] MEDS: LACTATED RINGERS 1,000 ML IV SCH ×2 (04:33→17:36)
[2021-08-05 05:38] LABS: Basophils % 0.3 % (0.0-0.8); Hematocrit 35.7 VOL% (35.7-47.0); Hemoglobin 11.4 GM/DL (12.0-16.0); Immature Granulocytes % 0.4 %; Immature Granulocytes Absolute 0.03 #; Lymphocytes # 0.4 10*3/uL (1.4-4.0); Lymphocytes % 4.8 % (21.3-54.2); Mean Corpuscular HGB Conc 31.9 GM/DL (32-36); Mean Corpuscular Volume 85.6 FL (87-102); Mean Platelet Volume 11.6 FL (9.6-12.0); Monocytes # 0.3 10*3/uL (0.11-0.8); Monocytes % 3.5 % (1.7-12.7); Platelet Count 177 T/CUMM (130-400); Red Blood Count 4.17 MC/CUMM (3.8-5.5); Red Cell Distribution Width 15.7 % (9.3-17.3); White Blood Count 7.4 T/CUMM (4-12)
[2021-08-05 05:56] LABS: Calcium 8.5 MG/DL (8.5-10.1); Potassium 4.3 MMOL/L (3.5-5.1)
[2021-08-05 05:59] LABS: Hypochromia Slight; Lymphocytes 13 % (20-55); Microcytosis Slight; Platelet Estimate Adequate; Total Cells Counted 100
[2021-08-05] MEDS: ALBUTEROL/IPRATROPIUM 3 ML NEB RESP TX SCH ×2 (13:05→20:05)
[2021-08-05] MEDS: cefTRIAXone 1,000 MG in SODIUM CHLORIDE 0.9% 100 ML IV SCH (14:29)
[2021-08-05] MEDS ORDERED: ZIPRASIDONE 20 MG/1 ML VIAL IM ONE (16:17)
[2021-08-05] MEDS: HEPARIN DRIP 25,000 UNITS/500 ML PREMIX IV SCH (17:37)
[2021-08-05] MEDS: PROMETHAZINE 25 MG/1 ML VIAL IM PRN (20:07)
[2021-08-05] MEDS: SACUBITRIL/VALSARTAN 49-51 MG TABLET PO SCH (21:04)
[2021-08-05] MEDS: GABAPENTIN 300 MG CAPSULE PO SCH (21:04)
[2021-08-05] MEDS: CALCIUM CARBONATE CHEW 500 MG TABLET PO PRN (21:04)
[2021-08-06] MEDS: ALBUTEROL/IPRATROPIUM 3 ML NEB RESP TX SCH ×4 (01:10→20:25)
[2021-08-06] MEDS: LACTATED RINGERS 1,000 ML IV SCH (04:09)
[2021-08-06 05:53] LABS: Basophils % 0.4 % (0.0-0.8); Hematocrit 33.3 VOL% (35.7-47.0); Hemoglobin 10.5 GM/DL (12.0-16.0); Immature Granulocytes % 0.4 %; Immature Granulocytes Absolute 0.02 #; Lymphocytes # 0.5 10*3/uL (1.4-4.0); Lymphocytes % 10.4 % (21.3-54.2); Mean Corpuscular HGB Conc 31.5 GM/DL (32-36); Mean Corpuscular Volume 85.2 FL (87-102); Mean Platelet Volume 11.1 FL (9.6-12.0); Monocytes # 0.2 10*3/uL (0.11-0.8); Monocytes % 2.9 % (1.7-12.7); Neutrophils % 85.9 % (38.7-73.9); Platelet Count 159 T/CUMM (130-400); Red Blood Count 3.91 MC/CUMM (3.8-5.5); Red Cell Distribution Width 15.7 % (9.3-17.3); White Blood Count 5.1 T/CUMM (4-12)
[2021-08-06 06:03] LABS: INR 1.7; PT Patient Result 18.6 SECS (10.5-12.0)
[2021-08-06] MEDS: ARIPiprazole 2 MG TABLET PO SCH (09:44)
[2021-08-06] MEDS: ROSUVASTATIN 20 MG TABLET PO SCH (09:44)
[2021-08-06] MEDS: SACUBITRIL/VALSARTAN 49-51 MG TABLET PO SCH ×2 (09:45→21:41)
[2021-08-06] MEDS: GABAPENTIN 300 MG CAPSULE PO SCH ×3 (09:45→21:42)
[2021-08-06] MEDS: SERTRALINE 100 MG TABLET PO SCH (09:45)
[2021-08-06] MEDS ORDERED: ZIPRASIDONE 20 MG/1 ML VIAL IM ONE (11:23)
[2021-08-06] MEDS: cefTRIAXone 1,000 MG in SODIUM CHLORIDE 0.9% 100 ML IV SCH (15:33)
[2021-08-06] MEDS: ACETAMINOPHEN 325 MG TABLET PO PRN (16:34)
[2021-08-06] MEDS: HEPARIN DRIP 25,000 UNITS/500 ML PREMIX IV SCH (16:35)
[2021-08-06] MEDS ORDERED: METOPROLOL TARTRATE 50 MG TABLET PO SCH (21:00)
[2021-08-06] MEDS: AMITRIPTYLINE 25 MG TABLET PO SCH (21:41)
[2021-08-07] MEDS: ALBUTEROL/IPRATROPIUM 3 ML NEB RESP TX SCH ×4 (00:25→19:50)
[2021-08-07] MEDS: LACTATED RINGERS 1,000 ML IV SCH ×3 (00:31→22:19)
[2021-08-07 06:25] LABS: Basophils % 0.2 % (0.0-0.8); Eosinophils % 0.6 % (0.00-10.9); Hemoglobin 10.3 GM/DL (12.0-16.0); Immature Granulocytes % 0.4 %; Immature Granulocytes Absolute 0.02 #; Lymphocytes # 0.8 10*3/uL (1.4-4.0); Lymphocytes % 13.9 % (21.3-54.2); Mean Corpuscular HGB Conc 31.2 GM/DL (32-36); Mean Corpuscular Volume 86.6 FL (87-102); Mean Platelet Volume 11.3 FL (9.6-12.0); Monocytes # 0.3 10*3/uL (0.11-0.8); Monocytes % 5.7 % (1.7-12.7); Neutrophils % 79.2 % (38.7-73.9); Platelet Count 167 T/CUMM (130-400); Red Blood Count 3.81 MC/CUMM (3.8-5.5); Red Cell Distribution Width 15.8 % (9.3-17.3); White Blood Count 5.5 T/CUMM (4-12)
[2021-08-07 06:37] LABS: INR 1.3; PT Patient Result 14.4 SECS (10.5-12.0)
[2021-08-07] MEDS ORDERED: SPIRONOLACTONE 50 MG TABLET PO SCH (09:00)
[2021-08-07] MEDS: ARIPiprazole 2 MG TABLET PO SCH (10:07)
[2021-08-07] MEDS: ROSUVASTATIN 20 MG TABLET PO SCH (10:07)
[2021-08-07] MEDS: SACUBITRIL/VALSARTAN 49-51 MG TABLET PO SCH ×2 (10:07→20:49)
[2021-08-07] MEDS: SERTRALINE 100 MG TABLET PO SCH (10:08)
[2021-08-07] MEDS: GABAPENTIN 300 MG CAPSULE PO SCH ×3 (10:08→20:49)
[2021-08-07] MEDS: VANCOMYCIN INJ 1,250 MG in SODIUM CHLORIDE 0.9% 250 ML IV SCH (11:29)
[2021-08-07] MEDS: HEPARIN DRIP 25,000 UNITS/500 ML PREMIX IV SCH (20:48)
[2021-08-07] MEDS: AMITRIPTYLINE 25 MG TABLET PO SCH (20:49)
[2021-08-08] MEDS: ALBUTEROL/IPRATROPIUM 3 ML NEB RESP TX SCH ×4 (01:50→20:10)
[2021-08-08 05:16] LABS: Basophils % 0.2 % (0.0-0.8); Eosinophils # 0.1 10*3/uL (0.0-0.87); Eosinophils % 1.6 % (0.00-10.9); Hematocrit 32.8 VOL% (35.7-47.0); Hemoglobin 10.2 GM/DL (12.0-16.0); Immature Granulocytes % 0.5 %; Immature Granulocytes Absolute 0.02 #; Lymphocytes # 0.9 10*3/uL (1.4-4.0); Lymphocytes % 19.5 % (21.3-54.2); Mean Corpuscular HGB Conc 31.1 GM/DL (32-36); Mean Corpuscular Volume 87.2 FL (87-102); Mean Platelet Volume 11.7 FL (9.6-12.0); Monocytes # 0.3 10*3/uL (0.11-0.8); Monocytes % 6.1 % (1.7-12.7); Neutrophils % 72.1 % (38.7-73.9); Platelet Count 191 T/CUMM (130-400); Red Blood Count 3.76 MC/CUMM (3.8-5.5); Red Cell Distribution Width 15.8 % (9.3-17.3); White Blood Count 4.4 T/CUMM (4-12)
[2021-08-08 05:39] LABS: Calcium 8.8 MG/DL (8.5-10.1); Osmolality,Calculated 279.3 MOS/KG (273-304); Potassium 3.6 MMOL/L (3.5-5.1)
[2021-08-08] MEDS: VANCOMYCIN INJ 1,250 MG in SODIUM CHLORIDE 0.9% 250 ML IV SCH ×2 (06:04→23:54)
[2021-08-08] MEDS: ARIPiprazole 2 MG TABLET PO SCH (09:30)
[2021-08-08] MEDS: SACUBITRIL/VALSARTAN 49-51 MG TABLET PO SCH ×2 (09:30→21:28)
[2021-08-08] MEDS: GABAPENTIN 300 MG CAPSULE PO SCH ×3 (09:30→21:28)
[2021-08-08] MEDS: ROSUVASTATIN 20 MG TABLET PO SCH (09:30)
[2021-08-08] MEDS: SERTRALINE 100 MG TABLET PO SCH (09:30)
[2021-08-08] MEDS ORDERED: HEPARIN 5,000 UNIT/1 ML VIAL IV ONE ×2 (10:20→17:26)
[2021-08-08] MEDS: LACTATED RINGERS 1,000 ML IV SCH ×2 (15:09→23:55)
[2021-08-08] MEDS: HEPARIN DRIP 25,000 UNITS/500 ML PREMIX IV SCH (21:26)
[2021-08-08] MEDS: AMITRIPTYLINE 25 MG TABLET PO SCH (21:29)
[2021-08-09] MEDS: ALBUTEROL/IPRATROPIUM 3 ML NEB RESP TX SCH ×4 (00:40→19:10)
[2021-08-09 06:00] LABS: Calcium 8.7 MG/DL (8.5-10.1); Osmolality,Calculated 278.1 MOS/KG (273-304); Potassium 3.4 MMOL/L (3.5-5.1)
[2021-08-09] MEDS ORDERED: TEMAZEPAM 15 MG CAPSULE PO ONE (06:30)
[2021-08-09] MEDS: ARIPiprazole 2 MG TABLET PO SCH (09:30)
[2021-08-09] MEDS: SERTRALINE 100 MG TABLET PO SCH (09:30)
[2021-08-09] MEDS: SACUBITRIL/VALSARTAN 49-51 MG TABLET PO SCH ×2 (09:30→21:04)
[2021-08-09] MEDS: ROSUVASTATIN 20 MG TABLET PO SCH (09:30)
[2021-08-09] MEDS: GABAPENTIN 300 MG CAPSULE PO SCH ×3 (09:30→21:05)
[2021-08-09] MEDS ORDERED: MAGNESIUM OXIDE 400 MG TABLET PO ONE (12:23)
[2021-08-09] MEDS ORDERED: POTASSIUM CHLORIDE 20 MEQ TABLET PO ONE (12:23)
[2021-08-09] MEDS: VANCOMYCIN INJ 1,250 MG in SODIUM CHLORIDE 0.9% 250 ML IV SCH (18:30)
[2021-08-09] MEDS: HEPARIN DRIP 25,000 UNITS/500 ML PREMIX IV SCH (18:33)
[2021-08-09] MEDS: LACTATED RINGERS 1,000 ML IV SCH ×2 (20:16→20:17)
[2021-08-09] MEDS: AMITRIPTYLINE 25 MG TABLET PO SCH (21:05)
[2021-08-09] MEDS: MELATONIN 3 MG TABLET PO PRN (21:05)
[2021-08-10] MEDS: ALBUTEROL/IPRATROPIUM 3 ML NEB RESP TX SCH ×4 (01:30→19:20)
[2021-08-10 06:29] LABS: Basophils % 0.7 % (0.0-0.8); Eosinophils # 0.2 10*3/uL (0.0-0.87); Eosinophils % 4.1 % (0.00-10.9); Hematocrit 31.7 VOL% (35.7-47.0); Hemoglobin 9.7 GM/DL (12.0-16.0); Immature Granulocytes % 2.7 %; Immature Granulocytes Absolute 0.15 #; Lymphocytes # 1.1 10*3/uL (1.4-4.0); Lymphocytes % 20.5 % (21.3-54.2); Mean Corpuscular HGB Conc 30.6 GM/DL (32-36); Mean Corpuscular Volume 87.3 FL (87-102); Mean Platelet Volume 11.1 FL (9.6-12.0); Monocytes # 0.2 10*3/uL (0.11-0.8); Monocytes % 4.3 % (1.7-12.7); NRBC # 0.03 10*3/uL; Neutrophils % 67.7 % (38.7-73.9); Platelet Count 246 T/CUMM (130-400); Red Blood Count 3.63 MC/CUMM (3.8-5.5); Red Cell Distribution Width 15.9 % (9.3-17.3); White Blood Count 5.6 T/CUMM (4-12)
[2021-08-10] MEDS: VANCOMYCIN INJ 1,250 MG in SODIUM CHLORIDE 0.9% 250 ML IV SCH ×2 (06:30→18:45)
[2021-08-10 07:03] LABS: Calcium 9.2 MG/DL (8.5-10.1); Potassium 3.7 MMOL/L (3.5-5.1)
[2021-08-10] MEDS: SACUBITRIL/VALSARTAN 49-51 MG TABLET PO SCH ×2 (10:45→21:19)
[2021-08-10] MEDS: ARIPiprazole 2 MG TABLET PO SCH (10:45)
[2021-08-10] MEDS: ROSUVASTATIN 20 MG TABLET PO SCH (10:45)
[2021-08-10] MEDS: GABAPENTIN 300 MG CAPSULE PO SCH ×3 (10:51→21:20)
[2021-08-10] MEDS: SERTRALINE 100 MG TABLET PO SCH (10:51)
[2021-08-10] MEDS ORDERED: FUROSEMIDE 40 MG/4 ML VIAL IV ONE (15:00)
[2021-08-10] MEDS: HEPARIN DRIP 25,000 UNITS/500 ML PREMIX IV SCH (18:56)
[2021-08-10] MEDS: MELATONIN 3 MG TABLET PO PRN (21:19)
[2021-08-10] MEDS: AMITRIPTYLINE 25 MG TABLET PO SCH (21:19)
[2021-08-11] MEDS: ALBUTEROL/IPRATROPIUM 3 ML NEB RESP TX SCH ×4 (00:18→19:09)
[2021-08-11] MEDS: VANCOMYCIN INJ 1,250 MG in SODIUM CHLORIDE 0.9% 250 ML IV SCH ×2 (05:45→17:25)
[2021-08-11] MEDS ORDERED: FUROSEMIDE 40 MG/4 ML VIAL IV ONE (06:54)
[2021-08-11] MEDS: SACUBITRIL/VALSARTAN 49-51 MG TABLET PO SCH ×2 (09:30→22:22)
[2021-08-11] MEDS: SERTRALINE 100 MG TABLET PO SCH (09:30)
[2021-08-11] MEDS: ARIPiprazole 2 MG TABLET PO SCH (09:31)
[2021-08-11] MEDS: SPIRONOLACTONE 25 MG TABLET PO SCH (09:31)
[2021-08-11] MEDS: ROSUVASTATIN 20 MG TABLET PO SCH (09:31)
[2021-08-11] MEDS: GABAPENTIN 300 MG CAPSULE PO SCH ×3 (09:31→22:22)
[2021-08-11] MEDS: DAPAGLIFLOZIN 5 MG TABLET PO SCH (09:31)
[2021-08-11] MEDS: HEPARIN DRIP 25,000 UNITS/500 ML PREMIX IV SCH (12:11)
[2021-08-11] MEDS: AMITRIPTYLINE 25 MG TABLET PO SCH (22:22)
[2021-08-11] MEDS: MELATONIN 3 MG TABLET PO PRN (22:22)
[2021-08-12] MEDS: ALBUTEROL/IPRATROPIUM 3 ML NEB RESP TX SCH ×5 (00:10→23:45)
[2021-08-12 05:26] LABS: Basophils # 0.1 10*3/uL (0.0-0.2); Eosinophils # 0.2 10*3/uL (0.0-0.87); Eosinophils % 3.9 % (0.00-10.9); Hematocrit 36.1 VOL% (35.7-47.0); Immature Granulocytes % 4.3 %; Immature Granulocytes Absolute 0.26 #; Lymphocytes # 1.5 10*3/uL (1.4-4.0); Lymphocytes % 24.5 % (21.3-54.2); Mean Corpuscular HGB Conc 30.5 GM/DL (32-36); Mean Corpuscular Volume 86.8 FL (87-102); Mean Platelet Volume 11.1 FL (9.6-12.0); Monocytes # 0.3 10*3/uL (0.11-0.8); Monocytes % 4.9 % (1.7-12.7); NRBC # 0.03 10*3/uL; Neutrophils % 61.4 % (38.7-73.9); Platelet Count 298 T/CUMM (130-400); Red Blood Count 4.16 MC/CUMM (3.8-5.5); Red Cell Distribution Width 16.3 % (9.3-17.3); White Blood Count 6.1 T/CUMM (4-12)
[2021-08-12 05:52] LABS: Albumin 2.9 G/DL (3.4-5.0); Bilirubin,Total 0.6 MG/DL (0.20-1.00); Calcium 9.1 MG/DL (8.5-10.1); Osmolality,Calculated 278.3 MOS/KG (273-304); Potassium 3.5 MMOL/L (3.5-5.1)
[2021-08-12] MEDS ORDERED: LIDOCAINE 1%/EPI INJ 20 ML VIAL ONE (08:55)
[2021-08-12] MEDS ORDERED: BUPIVACAINE MPF 0.25% 30 ML VIAL ONE (08:55)
[2021-08-12] MEDS ORDERED: TISSUE ADHESIVE 1 EACH APPLICATOR TOP ONE (08:55)
[2021-08-12] MEDS ORDERED: SEVOFLURANE 1 UNIT/15 MINUTE INH ONE ×8 (09:08→10:17)
[2021-08-12] MEDS ORDERED: MIDAZOLAM 2 MG/2 ML VIAL ONE (09:08)
[2021-08-12] MEDS ORDERED: fentaNYL 100 MCG/2 ML VIAL ONE (09:08)
[2021-08-12] MEDS ORDERED: ROCURONIUM 50 MG/5 ML VIAL IV ONE (09:08)
[2021-08-12] MEDS ORDERED: propofoL 200 MG/20 ML VIAL IV ONE (09:08)
[2021-08-12] MEDS ORDERED: ETOMIDATE 40 MG/20 ML VIAL IV ONE ×2 (09:08→10:24)
[2021-08-12] MEDS ORDERED: LIDOCAINE 2% 5 ML VIAL ONE (09:08)
[2021-08-12] MEDS ORDERED: LACTATED RINGERS 1,000 ML IV SCH (09:30)
[2021-08-12] MEDS ORDERED: ACETAMINOPHEN INJ 1,000 MG/100 ML VIAL IV ONE (10:17)
[2021-08-12] MEDS ORDERED: ceFAZolin 1,000 MG VIAL ONE (10:17)
[2021-08-12] MEDS ORDERED: ONDANSETRON 4 MG/2 ML VIAL ONE (10:17)
[2021-08-12] MEDS ORDERED: PHENYLEPHRINE 1 MG/10 ML SYRINGE IV ONE (10:23)
[2021-08-12] MEDS ORDERED: GLYCOPYRROLATE 0.4 MG/2 ML VIAL ONE (10:25)
[2021-08-12] MEDS ORDERED: NEOSTIGMINE 10 MG/10 ML VIAL ONE (10:25)
[2021-08-12] MEDS: DAPAGLIFLOZIN 5 MG TABLET PO SCH (12:30)
[2021-08-12] MEDS: SPIRONOLACTONE 25 MG TABLET PO SCH (12:30)
[2021-08-12] MEDS: ARIPiprazole 2 MG TABLET PO SCH (12:31)
[2021-08-12] MEDS: GABAPENTIN 300 MG CAPSULE PO SCH ×3 (12:31→20:30)
[2021-08-12] MEDS: SACUBITRIL/VALSARTAN 49-51 MG TABLET PO SCH ×2 (12:31→20:30)
[2021-08-12] MEDS: ROSUVASTATIN 20 MG TABLET PO SCH (12:32)
[2021-08-12] MEDS: SERTRALINE 100 MG TABLET PO SCH (12:32)
[2021-08-12] MEDS: MELATONIN 3 MG TABLET PO PRN (20:31)
[2021-08-12] MEDS: CALCIUM CARBONATE CHEW 500 MG TABLET PO PRN (20:31)
[2021-08-12] MEDS: AMITRIPTYLINE 25 MG TABLET PO SCH (20:31)
[2021-08-13] MEDS: HEPARIN DRIP 25,000 UNITS/500 ML PREMIX IV SCH ×2 (04:10→16:20)
[2021-08-13] MEDS: ALBUTEROL/IPRATROPIUM 3 ML NEB RESP TX SCH ×3 (07:16→19:10)
[2021-08-13] MEDS: GABAPENTIN 300 MG CAPSULE PO SCH ×3 (08:52→21:34)
[2021-08-13] MEDS: SPIRONOLACTONE 25 MG TABLET PO SCH (08:52)
[2021-08-13] MEDS: ROSUVASTATIN 20 MG TABLET PO SCH (08:52)
[2021-08-13] MEDS: SERTRALINE 100 MG TABLET PO SCH (08:52)
[2021-08-13] MEDS: SACUBITRIL/VALSARTAN 49-51 MG TABLET PO SCH ×2 (08:52→21:35)
[2021-08-13] MEDS: ARIPiprazole 2 MG TABLET PO SCH (08:53)
[2021-08-13] MEDS: DAPAGLIFLOZIN 5 MG TABLET PO SCH (08:54)
[2021-08-13 10:37] LABS: Hematocrit 34.8 VOL% (35.7-47.0); Hemoglobin 10.4 GM/DL (12.0-16.0)
[2021-08-13 10:48] LABS: Partial Thromboplastin Time 53.5 SECS (23.8-32.1)
[2021-08-13] MEDS: ACETAMINOPHEN 325 MG TABLET PO PRN (12:27)
[2021-08-13] MEDS ORDERED: WARFARIN 2.5 MG TABLET PO SCH ×2 (12:30→13:00)
[2021-08-13] MEDS: CALCIUM CARBONATE CHEW 500 MG TABLET PO PRN (21:34)
[2021-08-13] MEDS: MELATONIN 3 MG TABLET PO PRN (21:34)
[2021-08-13] MEDS: AMITRIPTYLINE 25 MG TABLET PO SCH (21:34)
[2021-08-14 05:04] LABS: Basophils # 0.1 10*3/uL (0.0-0.2); Eosinophils # 0.2 10*3/uL (0.0-0.87); Eosinophils % 3.6 % (0.00-10.9); Hematocrit 34.4 VOL% (35.7-47.0); Hemoglobin 10.4 GM/DL (12.0-16.0); Immature Granulocytes % 3.1 %; Immature Granulocytes Absolute 0.16 #; Lymphocytes # 1.4 10*3/uL (1.4-4.0); Lymphocytes % 26.1 % (21.3-54.2); Mean Corpuscular HGB Conc 30.2 GM/DL (32-36); Mean Corpuscular Volume 88.9 FL (87-102); Monocytes # 0.3 10*3/uL (0.11-0.8); Monocytes % 5.9 % (1.7-12.7); NRBC # 0.03 10*3/uL; Neutrophils % 60.3 % (38.7-73.9); Platelet Count 278 T/CUMM (130-400); Red Blood Count 3.87 MC/CUMM (3.8-5.5); White Blood Count 5.2 T/CUMM (4-12)
[2021-08-14 05:17] LABS: PT Patient Result 11.1 SECS (10.5-12.0)
[2021-08-14 05:22] LABS: Albumin 2.9 G/DL (3.4-5.0); Bilirubin,Total 0.4 MG/DL (0.20-1.00); Calcium 9.3 MG/DL (8.5-10.1); Osmolality,Calculated 277.4 MOS/KG (273-304); Total Protein 6.7 G/DL (6.4-8.2)
[2021-08-14] MEDS: ALBUTEROL/IPRATROPIUM 3 ML NEB RESP TX SCH ×4 (07:30→19:01)
[2021-08-14] MEDS: SPIRONOLACTONE 25 MG TABLET PO SCH (09:42)
[2021-08-14] MEDS: WARFARIN 5 MG TABLET PO SCH (09:42)
[2021-08-14] MEDS: ARIPiprazole 2 MG TABLET PO SCH (09:42)
[2021-08-14] MEDS: DAPAGLIFLOZIN 5 MG TABLET PO SCH (09:43)
[2021-08-14] MEDS: ROSUVASTATIN 20 MG TABLET PO SCH (09:43)
[2021-08-14] MEDS: SACUBITRIL/VALSARTAN 49-51 MG TABLET PO SCH ×2 (09:43→20:59)
[2021-08-14] MEDS: GABAPENTIN 300 MG CAPSULE PO SCH ×3 (09:43→20:59)
[2021-08-14] MEDS: SERTRALINE 100 MG TABLET PO SCH (09:44)
[2021-08-14] MEDS: CLOPIDOGREL 75 MG TABLET PO SCH (09:44)
[2021-08-14] MEDS: CALCIUM CARBONATE CHEW 500 MG TABLET PO PRN ×2 (12:18→17:44)
[2021-08-14] MEDS ORDERED: WARFARIN 5 MG TABLET PO ONE (13:00)
[2021-08-14] MEDS: HEPARIN DRIP 25,000 UNITS/500 ML PREMIX IV SCH (16:06)
[2021-08-14] MEDS: MELATONIN 3 MG TABLET PO PRN (20:59)
[2021-08-14] MEDS: AMITRIPTYLINE 25 MG TABLET PO SCH (20:59)
[2021-08-15] MEDS: ALBUTEROL/IPRATROPIUM 3 ML NEB RESP TX SCH ×4 (00:07→19:49)
[2021-08-15] MEDS: HEPARIN DRIP 25,000 UNITS/500 ML PREMIX IV SCH ×2 (04:49→21:16)
[2021-08-15 05:38] LABS: INR 1.1; PT Patient Result 12.2 SECS (10.5-12.0)
[2021-08-15] MEDS: ARIPiprazole 2 MG TABLET PO SCH (08:56)
[2021-08-15] MEDS: WARFARIN 5 MG TABLET PO SCH (08:56)
[2021-08-15] MEDS: SERTRALINE 100 MG TABLET PO SCH (08:57)
[2021-08-15] MEDS: SPIRONOLACTONE 25 MG TABLET PO SCH (08:57)
[2021-08-15] MEDS: ROSUVASTATIN 20 MG TABLET PO SCH (08:57)
[2021-08-15] MEDS: GABAPENTIN 300 MG CAPSULE PO SCH ×3 (08:58→21:19)
[2021-08-15] MEDS: DAPAGLIFLOZIN 5 MG TABLET PO SCH (08:58)
[2021-08-15] MEDS: CLOPIDOGREL 75 MG TABLET PO SCH (08:58)
[2021-08-15] MEDS: SACUBITRIL/VALSARTAN 49-51 MG TABLET PO SCH ×2 (08:59→21:18)
[2021-08-15] MEDS: CALCIUM CARBONATE CHEW 500 MG TABLET PO PRN (14:15)
[2021-08-15] MEDS ORDERED: WARFARIN 5 MG TABLET PO ONE (18:00)
[2021-08-15] MEDS: MELATONIN 3 MG TABLET PO PRN (21:19)
[2021-08-15] MEDS: AMITRIPTYLINE 25 MG TABLET PO SCH (21:19)
[2021-08-16] MEDS: ALBUTEROL/IPRATROPIUM 3 ML NEB RESP TX SCH ×4 (00:15→19:20)
[2021-08-16 06:37] LABS: Basophils # 0.1 10*3/uL (0.0-0.2); Basophils % 0.9 % (0.0-0.8); Eosinophils # 0.2 10*3/uL (0.0-0.87); Eosinophils % 2.1 % (0.00-10.9); Hematocrit 39.1 VOL% (35.7-47.0); Hemoglobin 11.9 GM/DL (12.0-16.0); Immature Granulocytes % 1.7 %; Immature Granulocytes Absolute 0.13 #; Lymphocytes # 1.6 10*3/uL (1.4-4.0); Lymphocytes % 21.7 % (21.3-54.2); Mean Corpuscular HGB Conc 30.4 GM/DL (32-36); Mean Corpuscular Volume 88.3 FL (87-102); Mean Platelet Volume 11.1 FL (9.6-12.0); Monocytes # 0.5 10*3/uL (0.11-0.8); Monocytes % 7.1 % (1.7-12.7); Neutrophils % 66.5 % (38.7-73.9); Platelet Count 340 T/CUMM (130-400); Red Blood Count 4.43 MC/CUMM (3.8-5.5); Red Cell Distribution Width 16.3 % (9.3-17.3); White Blood Count 7.5 T/CUMM (4-12)
[2021-08-16 07:03] LABS: Albumin 3.6 G/DL (3.4-5.0); Bilirubin,Total 0.4 MG/DL (0.20-1.00); Calcium 9.9 MG/DL (8.5-10.1); Osmolality,Calculated 271.8 MOS/KG (273-304); Potassium 3.8 MMOL/L (3.5-5.1); Total Protein 7.6 G/DL (6.4-8.2)
[2021-08-16 07:53] LABS: INR 1.8; PT Patient Result 18.8 SECS (10.5-12.0)
[2021-08-16] MEDS: SPIRONOLACTONE 25 MG TABLET PO SCH (10:05)
[2021-08-16] MEDS: ARIPiprazole 2 MG TABLET PO SCH (10:05)
[2021-08-16] MEDS: SACUBITRIL/VALSARTAN 49-51 MG TABLET PO SCH ×2 (10:06→21:14)
[2021-08-16] MEDS: CLOPIDOGREL 75 MG TABLET PO SCH (10:06)
[2021-08-16] MEDS: DAPAGLIFLOZIN 5 MG TABLET PO SCH (10:06)
[2021-08-16] MEDS: ROSUVASTATIN 20 MG TABLET PO SCH (10:06)
[2021-08-16] MEDS: GABAPENTIN 300 MG CAPSULE PO SCH ×3 (10:06→21:14)
[2021-08-16] MEDS: SERTRALINE 100 MG TABLET PO SCH (10:07)
[2021-08-16] MEDS: CALCIUM CARBONATE CHEW 500 MG TABLET PO PRN (13:54)
[2021-08-16] MEDS: HEPARIN DRIP 25,000 UNITS/500 ML PREMIX IV SCH (16:35)
[2021-08-16] MEDS: WARFARIN 5 MG TABLET PO SCH (18:32)
[2021-08-16] MEDS: AMITRIPTYLINE 25 MG TABLET PO SCH (21:14)
[2021-08-16] MEDS: MELATONIN 3 MG TABLET PO PRN (21:14)
[2021-08-17] MEDS: ALBUTEROL/IPRATROPIUM 3 ML NEB RESP TX SCH ×3 (00:05→17:56)
[2021-08-17 06:37] LABS: INR 2.3; PT Patient Result 24.1 SECS (10.5-12.0)
[2021-08-17] MEDS: SERTRALINE 100 MG TABLET PO SCH (09:38)
[2021-08-17] MEDS: SPIRONOLACTONE 25 MG TABLET PO SCH (09:38)
[2021-08-17] MEDS: ROSUVASTATIN 20 MG TABLET PO SCH (09:38)
[2021-08-17] MEDS: SACUBITRIL/VALSARTAN 49-51 MG TABLET PO SCH (09:38)
[2021-08-17] MEDS: ARIPiprazole 2 MG TABLET PO SCH (09:38)
[2021-08-17] MEDS: GABAPENTIN 300 MG CAPSULE PO SCH ×2 (09:38→15:03)
[2021-08-17] MEDS: DAPAGLIFLOZIN 5 MG TABLET PO SCH (09:39)
[2021-08-17] MEDS: CLOPIDOGREL 75 MG TABLET PO SCH (09:39)
[2021-08-17] MEDS: CALCIUM CARBONATE CHEW 500 MG TABLET PO PRN (13:06)
[2021-08-17] MEDS: PROMETHAZINE 25 MG/1 ML VIAL IM PRN (13:10)
[2021-08-17 16:48] VITALS: BP 117/70
[2021-08-17] MEDS: WARFARIN 5 MG TABLET PO SCH (19:11)
[2021-08-18] MEDS ORDERED: WARFARIN 2.5 MG TABLET PO SCH (18:00)
== END 2021-08-17 18:18 | disposition home or self-care (01) | DRG 263 ==
LOC: N.EDINP 13:59 → N.ED 13:59 → SUATTDRO 19:15 → N.5E 19:17 → SUATTDRO 08-05 08:56
PROVIDERS: ADMIT Internal Medicine Geriatric Medicine; ATTEND Internal Medicine
PROC: LAPCHOL (2021-08-12 09:49)

== ENCOUNTER 2021-08-19 19:59 | Inpatient (IN) ==
[2021-08-19] MEDS ORDERED: ONDANSETRON 4 MG/2 ML VIAL IV STA (21:35)
[2021-08-19] MEDS ORDERED: SODIUM CHLORIDE 0.9% 500 ML IV STA (21:35)
[2021-08-19 21:46] LABS: Basophils # 0.1 10*3/uL (0.0-0.2); Basophils % 0.9 % (0.0-0.8); Eosinophils # 0.1 10*3/uL (0.0-0.87); Eosinophils % 1.3 % (0.00-10.9); Hematocrit 42.3 VOL% (35.7-47.0); Hemoglobin 13.3 GM/DL (12.0-16.0); Immature Granulocytes % 0.5 %; Immature Granulocytes Absolute 0.05 #; Lymphocytes % 10.1 % (21.3-54.2); Mean Corpuscular HGB Conc 31.4 GM/DL (32-36); Mean Corpuscular Volume 83.8 FL (87-102); Mean Platelet Volume 10.5 FL (9.6-12.0); Monocytes # 0.5 10*3/uL (0.11-0.8); Monocytes % 5.5 % (1.7-12.7); Neutrophils % 81.7 % (38.7-73.9); Platelet Count 459 T/CUMM (130-400); Red Blood Count 5.05 MC/CUMM (3.8-5.5); Red Cell Distribution Width 15.9 % (9.3-17.3); White Blood Count 9.7 T/CUMM (4-12)
[2021-08-19 22:18] LABS: Albumin 4.3 G/DL (3.4-5.0); Bilirubin,Total 0.5 MG/DL (0.20-1.00); Calcium 9.6 MG/DL (8.5-10.1); Osmolality,Calculated 274.8 MOS/KG (273-304); Potassium 3.9 MMOL/L (3.5-5.1); Total Protein 8.6 G/DL (6.4-8.2)
[2021-08-19] MEDS ORDERED: PROMETHAZINE 25 MG/1 ML VIAL IM STA (22:31)
[2021-08-19] MEDS ORDERED: MORPHINE 2 MG/1 ML SYRINGE IV PRN (22:37)
[2021-08-19] MEDS ORDERED: BISACODYL 5 MG TABLET PO PRN (22:37)
[2021-08-19] MEDS ORDERED: hydrALAZINE 20 MG/1 ML VIAL IV PRN (22:37)
[2021-08-19] MEDS ORDERED: guaiFENesin/DM ER 600-30 MG TABLET PO PRN (22:37)
[2021-08-19] MEDS ORDERED: NICOTINE 21 MG/24 HR PATCH TRANSDERM PRN (22:37)
[2021-08-19] MEDS ORDERED: diphenhydrAMINE CAP 25 MG CAPSULE PO PRN (22:37)
[2021-08-19] MEDS ORDERED: GLUCAGON 1 MG VIAL IM PRN (22:37)
[2021-08-19] MEDS ORDERED: ACETAMINOPHEN 325 MG TABLET PO PRN (22:37)
[2021-08-19] MEDS ORDERED: DEXTROSE 10% 250 ML BAG IV PRN (22:37)
[2021-08-19] MEDS: DEXT 5% NACL 0.9% KCL 40 MEQ 40 MEQ/1,000 ML BAG IV SCH (23:24)
[2021-08-20] MEDS: ONDANSETRON 4 MG/2 ML VIAL IV PRN ×3 (01:26→12:10)
[2021-08-20] MEDS: PROMETHAZINE 25 MG/1 ML VIAL IM PRN ×4 (01:52→22:04)
[2021-08-20 04:24] LABS: Basophils # 0.1 10*3/uL (0.0-0.2); Basophils % 0.7 % (0.0-0.8); Eosinophils % 0.1 % (0.00-10.9); Hematocrit 39.4 VOL% (35.7-47.0); Hemoglobin 12.3 GM/DL (12.0-16.0); Immature Granulocytes % 0.5 %; Immature Granulocytes Absolute 0.05 #; Lymphocytes # 0.8 10*3/uL (1.4-4.0); Lymphocytes % 8.6 % (21.3-54.2); Mean Corpuscular HGB Conc 31.2 GM/DL (32-36); Mean Corpuscular Volume 84.4 FL (87-102); Mean Platelet Volume 10.8 FL (9.6-12.0); Monocytes # 0.4 10*3/uL (0.11-0.8); Monocytes % 4.1 % (1.7-12.7); Platelet Count 439 T/CUMM (130-400); Red Blood Count 4.67 MC/CUMM (3.8-5.5); Red Cell Distribution Width 15.8 % (9.3-17.3); White Blood Count 9.2 T/CUMM (4-12)
[2021-08-20 04:53] LABS: Calcium 9.3 MG/DL (8.5-10.1); Osmolality,Calculated 277.7 MOS/KG (273-304); Potassium 4.2 MMOL/L (3.5-5.1)
[2021-08-20] MEDS ORDERED: METOCLOPRAMIDE 10 MG/2 ML VIAL ONE (05:02)
[2021-08-20] MEDS ORDERED: METOCLOPRAMIDE 10 MG/2 ML VIAL IV ONE (05:11)
[2021-08-20 06:18] LABS: RBC,Urine 2 /HPF (0-4); Squamous Epithelial Cell,Urine Occasional /HPF (0-10)
[2021-08-20 06:19] LABS: Bilirubin,Urine Negative (Negative); Blood, Urine Trace mg/dL (Negative); Glucose,Urine (UA) >=1000 mg/dL (Negative); Ketones,Urine Negative (Negative); Nitrite,Urine Negative (Negative); Protein,Urine Negative (Negative); Urine Appearance Clear (Clear); Urine Color Yellow (Yellow); Urine pH 6.5 (4.5-8.0)
[2021-08-20 06:20] LABS: Urine Urobilinogen 0.2 eU/dL (<2.0)
[2021-08-20 06:58] LABS: INR 3.3; PT Patient Result 33.8 SECS (10.5-12.0)
[2021-08-20] MEDS ORDERED: PANTOPRAZOLE 40 MG TABLET PO SCH (09:00)
[2021-08-20] MEDS: DEXT 5% NACL 0.9% KCL 40 MEQ 40 MEQ/1,000 ML BAG IV SCH ×2 (09:35→22:03)
[2021-08-20] MEDS: HEPARIN 5,000 UNIT/1 ML VIAL SUBCUT SCH ×2 (10:05→22:05)
[2021-08-20] MEDS ORDERED: PANTOPRAZOLE 40 MG VIAL IV SCH (21:00)
[2021-08-20] MEDS: ZALEPLON 5 MG CAPSULE PO PRN (22:05)
[2021-08-20] MEDS: METOPROLOL TARTRATE 50 MG TABLET PO SCH (22:11)
[2021-08-21 05:09] LABS: Basophils # 0.1 10*3/uL (0.0-0.2); Basophils % 0.5 % (0.0-0.8); Eosinophils % 0.2 % (0.00-10.9); Hematocrit 41.5 VOL% (35.7-47.0); Hemoglobin 12.6 GM/DL (12.0-16.0); Immature Granulocytes % 0.6 %; Immature Granulocytes Absolute 0.06 #; Lymphocytes # 0.6 10*3/uL (1.4-4.0); Lymphocytes % 5.8 % (21.3-54.2); Mean Corpuscular HGB Conc 30.4 GM/DL (32-36); Mean Corpuscular Volume 86.1 FL (87-102); Mean Platelet Volume 10.9 FL (9.6-12.0); Monocytes # 0.4 10*3/uL (0.11-0.8); Monocytes % 3.4 % (1.7-12.7); Neutrophils % 89.5 % (38.7-73.9); Platelet Count 483 T/CUMM (130-400); Red Blood Count 4.82 MC/CUMM (3.8-5.5); Red Cell Distribution Width 15.9 % (9.3-17.3); White Blood Count 10.8 T/CUMM (4-12)
[2021-08-21 05:24] LABS: Calcium 10.2 MG/DL (8.5-10.1); Osmolality,Calculated 273.8 MOS/KG (273-304); Potassium 4.7 MMOL/L (3.5-5.1)
[2021-08-21] MEDS: LACTATED RINGERS 1,000 ML IV SCH (07:48)
[2021-08-21] MEDS: METOPROLOL TARTRATE 50 MG TABLET PO SCH ×3 (07:50→21:40)
[2021-08-21] MEDS: ROSUVASTATIN 20 MG TABLET PO SCH ×2 (07:50→09:41)
[2021-08-21] MEDS: SPIRONOLACTONE 25 MG TABLET PO SCH ×2 (07:51→09:41)
[2021-08-21] MEDS: DEXT 5% NACL 0.9% KCL 40 MEQ 40 MEQ/1,000 ML BAG IV SCH ×3 (07:51→21:40)
[2021-08-21] MEDS ORDERED: LIDOCAINE 2% 5 ML VIAL ONE (08:28)
[2021-08-21] MEDS ORDERED: propofoL 200 MG/20 ML VIAL IV ONE (08:28)
[2021-08-21] MEDS: ONDANSETRON 4 MG/2 ML VIAL IV PRN (09:40)
[2021-08-21] MEDS: PANTOPRAZOLE 40 MG TABLET PO SCH ×2 (09:41→21:40)
[2021-08-21] MEDS: HEPARIN 5,000 UNIT/1 ML VIAL SUBCUT SCH ×2 (09:42→21:41)
[2021-08-22] MEDS: ZALEPLON 5 MG CAPSULE PO PRN (00:06)
[2021-08-22] MEDS: DEXT 5% NACL 0.9% KCL 40 MEQ 40 MEQ/1,000 ML BAG IV SCH ×4 (07:35→17:12)
[2021-08-22] MEDS: LACTATED RINGERS 1,000 ML IV SCH (07:35)
[2021-08-22] MEDS: SPIRONOLACTONE 25 MG TABLET PO SCH (09:11)
[2021-08-22] MEDS: ROSUVASTATIN 20 MG TABLET PO SCH (09:11)
[2021-08-22] MEDS: PANTOPRAZOLE 40 MG TABLET PO SCH ×2 (09:11→20:36)
[2021-08-22] MEDS: HEPARIN 5,000 UNIT/1 ML VIAL SUBCUT SCH ×2 (09:12→20:36)
[2021-08-22] MEDS: METOPROLOL TARTRATE 50 MG TABLET PO SCH ×2 (09:12→20:36)
[2021-08-22] MEDS: GABAPENTIN 300 MG CAPSULE PO SCH ×3 (09:59→20:36)
[2021-08-22] MEDS: WARFARIN 2.5 MG TABLET PO SCH (10:00)
[2021-08-22] MEDS: SERTRALINE 100 MG TABLET PO SCH (10:00)
[2021-08-22] MEDS: DAPAGLIFLOZIN 5 MG TABLET PO SCH (10:00)
[2021-08-22] MEDS: ARIPiprazole 2 MG TABLET PO SCH (10:00)
[2021-08-22] MEDS: METOCLOPRAMIDE 10 MG/2 ML VIAL IV SCH ×3 (11:49→23:16)
[2021-08-22] MEDS: AMITRIPTYLINE 25 MG TABLET PO SCH (20:36)
[2021-08-23] MEDS: DEXT 5% NACL 0.9% KCL 40 MEQ 40 MEQ/1,000 ML BAG IV SCH ×4 (01:52→23:47)
[2021-08-23] MEDS: METOCLOPRAMIDE 10 MG/2 ML VIAL IV SCH ×3 (05:52→17:13)
[2021-08-23] MEDS: LACTATED RINGERS 1,000 ML IV SCH (05:52)
[2021-08-23 07:15] LABS: INR 2.9; PT Patient Result 29.8 SECS (10.5-12.0)
[2021-08-23 07:23] LABS: Calcium 9.5 MG/DL (8.5-10.1); Osmolality,Calculated 278.3 MOS/KG (273-304); Potassium 4.5 MMOL/L (3.5-5.1)
[2021-08-23] MEDS: PANTOPRAZOLE 40 MG TABLET PO SCH ×3 (08:57→23:46)
[2021-08-23] MEDS: ROSUVASTATIN 20 MG TABLET PO SCH (08:59)
[2021-08-23] MEDS: GABAPENTIN 300 MG CAPSULE PO SCH ×4 (08:59→23:46)
[2021-08-23] MEDS: DAPAGLIFLOZIN 5 MG TABLET PO SCH (08:59)
[2021-08-23] MEDS: METOPROLOL TARTRATE 50 MG TABLET PO SCH ×3 (08:59→23:45)
[2021-08-23] MEDS: SERTRALINE 100 MG TABLET PO SCH (08:59)
[2021-08-23] MEDS: SPIRONOLACTONE 25 MG TABLET PO SCH (08:59)
[2021-08-23] MEDS: WARFARIN 2.5 MG TABLET PO SCH (08:59)
[2021-08-23] MEDS: ARIPiprazole 2 MG TABLET PO SCH (09:02)
[2021-08-23] MEDS: HEPARIN 5,000 UNIT/1 ML VIAL SUBCUT SCH ×2 (09:03→21:39)
[2021-08-23] MEDS ORDERED: PROMETHAZINE INJ 25 MG in SODIUM CHLORIDE 0.9% 50 ML IV ONE (19:52)
[2021-08-23] MEDS: AMITRIPTYLINE 25 MG TABLET PO SCH ×2 (21:38→23:46)
[2021-08-24] MEDS: METOCLOPRAMIDE 10 MG/2 ML VIAL IV SCH ×4 (00:06→17:22)
[2021-08-24 05:12] LABS: Basophils # 0.1 10*3/uL (0.0-0.2); Basophils % 1.2 % (0.0-0.8); Eosinophils # 0.2 10*3/uL (0.0-0.87); Eosinophils % 3.9 % (0.00-10.9); Hematocrit 34.5 VOL% (35.7-47.0); Hemoglobin 10.2 GM/DL (12.0-16.0); Immature Granulocytes % 1.2 %; Immature Granulocytes Absolute 0.07 #; Lymphocytes # 1.4 10*3/uL (1.4-4.0); Lymphocytes % 23.9 % (21.3-54.2); Mean Corpuscular HGB Conc 29.6 GM/DL (32-36); Mean Corpuscular Volume 87.3 FL (87-102); Mean Platelet Volume 11.2 FL (9.6-12.0); Monocytes # 0.4 10*3/uL (0.11-0.8); Monocytes % 7.2 % (1.7-12.7); NRBC # 0.03 10*3/uL; Neutrophils % 62.6 % (38.7-73.9); Platelet Count 307 T/CUMM (130-400); Red Blood Count 3.95 MC/CUMM (3.8-5.5)
[2021-08-24 05:20] LABS: INR 2.6; PT Patient Result 26.4 SECS (10.5-12.0)
[2021-08-24 05:36] LABS: Calcium 9.4 MG/DL (8.5-10.1); Osmolality,Calculated 271.7 MOS/KG (273-304); Potassium 4.8 MMOL/L (3.5-5.1)
[2021-08-24] MEDS: LACTATED RINGERS 1,000 ML IV SCH (06:10)
[2021-08-24] MEDS: DEXT 5% NACL 0.9% KCL 40 MEQ 40 MEQ/1,000 ML BAG IV SCH ×2 (06:44→19:32)
[2021-08-24] MEDS ORDERED: MAGNESIUM SULF RIDER 2 GM/50 ML PREMIX IV ONE (07:46)
[2021-08-24] MEDS ORDERED: PROMETHAZINE 25 MG SUPP RECTAL PRN (09:28)
[2021-08-24] MEDS: HEPARIN 5,000 UNIT/1 ML VIAL SUBCUT SCH ×2 (10:36→21:09)
[2021-08-24] MEDS: WARFARIN 5 MG TABLET PO SCH (11:11)
[2021-08-24] MEDS: ROSUVASTATIN 20 MG TABLET PO SCH (11:11)
[2021-08-24] MEDS: ARIPiprazole 2 MG TABLET PO SCH (11:11)
[2021-08-24] MEDS: METOPROLOL TARTRATE 50 MG TABLET PO SCH ×2 (11:11→21:57)
[2021-08-24] MEDS: SERTRALINE 100 MG TABLET PO SCH (11:12)
[2021-08-24] MEDS: SPIRONOLACTONE 25 MG TABLET PO SCH (11:12)
[2021-08-24] MEDS: PANTOPRAZOLE 40 MG TABLET PO SCH ×2 (11:12→21:57)
[2021-08-24] MEDS: GABAPENTIN 300 MG CAPSULE PO SCH ×3 (11:12→21:57)
[2021-08-24] MEDS: DAPAGLIFLOZIN 5 MG TABLET PO SCH (11:12)
[2021-08-24] MEDS: AMITRIPTYLINE 25 MG TABLET PO SCH (21:57)
[2021-08-25] MEDS: METOCLOPRAMIDE 10 MG/2 ML VIAL IV SCH ×2 (00:39→05:20)
[2021-08-25 05:08] LABS: Basophils # 0.1 10*3/uL (0.0-0.2); Basophils % 1.1 % (0.0-0.8); Eosinophils # 0.2 10*3/uL (0.0-0.87); Eosinophils % 2.8 % (0.00-10.9); Hematocrit 37.8 VOL% (35.7-47.0); Hemoglobin 11.7 GM/DL (12.0-16.0); Immature Granulocytes % 0.8 %; Immature Granulocytes Absolute 0.06 #; Lymphocytes % 13.4 % (21.3-54.2); Mean Corpuscular Volume 84.8 FL (87-102); Mean Platelet Volume 10.8 FL (9.6-12.0); Monocytes # 0.4 10*3/uL (0.11-0.8); Monocytes % 5.4 % (1.7-12.7); NRBC # 0.02 10*3/uL; Neutrophils % 76.5 % (38.7-73.9); Platelet Count 362 T/CUMM (130-400); Red Blood Count 4.46 MC/CUMM (3.8-5.5); Red Cell Distribution Width 16.3 % (9.3-17.3); White Blood Count 7.2 T/CUMM (4-12)
[2021-08-25 05:17] LABS: INR 2.1; PT Patient Result 22.4 SECS (10.5-12.0)
[2021-08-25] MEDS: DEXT 5% NACL 0.9% KCL 40 MEQ 40 MEQ/1,000 ML BAG IV SCH ×2 (05:20→21:16)
[2021-08-25 05:23] LABS: Calcium 9.5 MG/DL (8.5-10.1); Osmolality,Calculated 267.1 MOS/KG (273-304); Potassium 4.7 MMOL/L (3.5-5.1)
[2021-08-25] MEDS: LACTATED RINGERS 1,000 ML IV SCH (06:27)
[2021-08-25] MEDS: SERTRALINE 100 MG TABLET PO SCH (13:37)
[2021-08-25] MEDS: PANTOPRAZOLE 40 MG TABLET PO SCH (13:37)
[2021-08-25] MEDS: METOPROLOL TARTRATE 50 MG TABLET PO SCH ×2 (13:37→21:14)
[2021-08-25] MEDS: ARIPiprazole 2 MG TABLET PO SCH (13:38)
[2021-08-25] MEDS: DAPAGLIFLOZIN 5 MG TABLET PO SCH (13:38)
[2021-08-25] MEDS: SPIRONOLACTONE 25 MG TABLET PO SCH (13:38)
[2021-08-25] MEDS: ROSUVASTATIN 20 MG TABLET PO SCH (13:38)
[2021-08-25] MEDS: GABAPENTIN 300 MG CAPSULE PO SCH ×3 (13:38→21:14)
[2021-08-25] MEDS: HEPARIN 5,000 UNIT/1 ML VIAL SUBCUT SCH ×2 (13:51→21:14)
[2021-08-25] MEDS: PROMETHAZINE 12.5 MG SUPP RECTAL PRN (15:02)
[2021-08-25] MEDS: WARFARIN 2.5 MG TABLET PO SCH (15:58)
[2021-08-25] MEDS: PANTOPRAZOLE 40 MG VIAL IV SCH ×2 (18:02→21:14)
[2021-08-25] MEDS: AMITRIPTYLINE 25 MG TABLET PO SCH (21:15)
[2021-08-26] MEDS: DEXT 5% NACL 0.9% KCL 40 MEQ 40 MEQ/1,000 ML BAG IV SCH ×2 (04:39→11:52)
[2021-08-26 05:23] LABS: Basophils # 0.1 10*3/uL (0.0-0.2); Basophils % 1.1 % (0.0-0.8); Eosinophils # 0.4 10*3/uL (0.0-0.87); Eosinophils % 7.1 % (0.00-10.9); Hematocrit 37.9 VOL% (35.7-47.0); Hemoglobin 11.9 GM/DL (12.0-16.0); Immature Granulocytes % 0.9 %; Immature Granulocytes Absolute 0.05 #; Lymphocytes # 1.4 10*3/uL (1.4-4.0); Lymphocytes % 25.8 % (21.3-54.2); Mean Corpuscular HGB Conc 31.4 GM/DL (32-36); Mean Corpuscular Volume 84.2 FL (87-102); Mean Platelet Volume 11.4 FL (9.6-12.0); Monocytes # 0.4 10*3/uL (0.11-0.8); Monocytes % 7.6 % (1.7-12.7); Neutrophils % 57.5 % (38.7-73.9); Platelet Count 347 T/CUMM (130-400); Red Cell Distribution Width 16.6 % (9.3-17.3); White Blood Count 5.4 T/CUMM (4-12)
[2021-08-26 05:30] LABS: INR 1.6; PT Patient Result 17.4 SECS (10.5-12.0)
[2021-08-26 05:37] LABS: Calcium 9.7 MG/DL (8.5-10.1); Osmolality,Calculated 270.8 MOS/KG (273-304); Potassium 4.7 MMOL/L (3.5-5.1)
[2021-08-26] MEDS: SERTRALINE 100 MG TABLET PO SCH (09:38)
[2021-08-26] MEDS: DAPAGLIFLOZIN 5 MG TABLET PO SCH (09:38)
[2021-08-26] MEDS: GABAPENTIN 300 MG CAPSULE PO SCH ×3 (09:38→21:31)
[2021-08-26] MEDS: METOPROLOL TARTRATE 50 MG TABLET PO SCH ×2 (09:38→21:31)
[2021-08-26] MEDS: ARIPiprazole 2 MG TABLET PO SCH (09:38)
[2021-08-26] MEDS: ROSUVASTATIN 20 MG TABLET PO SCH (09:38)
[2021-08-26] MEDS: WARFARIN 5 MG TABLET PO SCH (09:38)
[2021-08-26] MEDS: PANTOPRAZOLE 40 MG VIAL IV SCH ×2 (09:39→21:31)
[2021-08-26] MEDS: LACTATED RINGERS 1,000 ML IV SCH (09:39)
[2021-08-26] MEDS: SPIRONOLACTONE 25 MG TABLET PO SCH (09:39)
[2021-08-26] MEDS: PROMETHAZINE 12.5 MG SUPP RECTAL PRN (09:50)
[2021-08-26] MEDS: HEPARIN DRIP 25,000 UNITS/500 ML PREMIX IV SCH (11:52)
[2021-08-26] MEDS: AMITRIPTYLINE 25 MG TABLET PO SCH (21:31)
[2021-08-27] MEDS: METOCLOPRAMIDE 10 MG/2 ML VIAL IV SCH ×5 (00:03→23:45)
[2021-08-27] MEDS: DEXT 5% NACL 0.9% KCL 40 MEQ 40 MEQ/1,000 ML BAG IV SCH ×3 (00:04→20:11)
[2021-08-27 02:51] LABS: Basophils # 0.1 10*3/uL (0.0-0.2); Basophils % 0.8 % (0.0-0.8); Eosinophils # 0.4 10*3/uL (0.0-0.87); Eosinophils % 6.3 % (0.00-10.9); Hematocrit 37.8 VOL% (35.7-47.0); Hemoglobin 11.8 GM/DL (12.0-16.0); Immature Granulocytes Absolute 0.06 #; Lymphocytes # 1.6 10*3/uL (1.4-4.0); Lymphocytes % 25.5 % (21.3-54.2); Mean Corpuscular HGB Conc 31.2 GM/DL (32-36); Mean Platelet Volume 10.7 FL (9.6-12.0); Monocytes # 0.5 10*3/uL (0.11-0.8); Monocytes % 7.4 % (1.7-12.7); Platelet Count 304 T/CUMM (130-400); White Blood Count 6.1 T/CUMM (4-12)
[2021-08-27 03:05] LABS: Calcium 9.4 MG/DL (8.5-10.1); Osmolality,Calculated 272.7 MOS/KG (273-304); Potassium 4.1 MMOL/L (3.5-5.1)
[2021-08-27] MEDS: DAPAGLIFLOZIN 5 MG TABLET PO SCH (09:27)
[2021-08-27] MEDS: ARIPiprazole 2 MG TABLET PO SCH (09:27)
[2021-08-27] MEDS: SERTRALINE 100 MG TABLET PO SCH (09:27)
[2021-08-27] MEDS: SPIRONOLACTONE 25 MG TABLET PO SCH (09:28)
[2021-08-27] MEDS: PANTOPRAZOLE 40 MG VIAL IV SCH ×2 (09:28→20:11)
[2021-08-27] MEDS: ROSUVASTATIN 20 MG TABLET PO SCH (09:28)
[2021-08-27] MEDS: WARFARIN 5 MG TABLET PO SCH (09:28)
[2021-08-27] MEDS: METOPROLOL TARTRATE 50 MG TABLET PO SCH ×2 (09:28→20:11)
[2021-08-27] MEDS: GABAPENTIN 300 MG CAPSULE PO SCH ×3 (09:28→20:11)
[2021-08-27] MEDS: HEPARIN DRIP 25,000 UNITS/500 ML PREMIX IV SCH (09:29)
[2021-08-27 09:47] LABS: INR 1.3; PT Patient Result 14.2 SECS (10.5-12.0)
[2021-08-27] MEDS: AMITRIPTYLINE 25 MG TABLET PO SCH (20:11)
[2021-08-28 05:15] LABS: Basophils % 0.6 % (0.0-0.8); Eosinophils # 0.3 10*3/uL (0.0-0.87); Eosinophils % 5.1 % (0.00-10.9); Hematocrit 36.2 VOL% (35.7-47.0); Immature Granulocytes % 0.9 %; Immature Granulocytes Absolute 0.06 #; Lymphocytes # 1.5 10*3/uL (1.4-4.0); Lymphocytes % 21.9 % (21.3-54.2); Mean Corpuscular HGB Conc 30.4 GM/DL (32-36); Mean Corpuscular Volume 85.6 FL (87-102); Mean Platelet Volume 11.5 FL (9.6-12.0); Monocytes # 0.4 10*3/uL (0.11-0.8); Monocytes % 6.1 % (1.7-12.7); Neutrophils % 65.4 % (38.7-73.9); Platelet Count 309 T/CUMM (130-400); Red Blood Count 4.23 MC/CUMM (3.8-5.5); Red Cell Distribution Width 16.7 % (9.3-17.3); White Blood Count 6.6 T/CUMM (4-12)
[2021-08-28 05:30] LABS: Calcium 9.2 MG/DL (8.5-10.1); Osmolality,Calculated 273.5 MOS/KG (273-304); Potassium 4.5 MMOL/L (3.5-5.1)
[2021-08-28 05:32] LABS: INR 1.4; PT Patient Result 15.4 SECS (10.5-12.0)
[2021-08-28] MEDS: METOCLOPRAMIDE 10 MG/2 ML VIAL IV SCH ×3 (06:09→17:15)
[2021-08-28] MEDS: HEPARIN DRIP 25,000 UNITS/500 ML PREMIX IV SCH (06:09)
[2021-08-28] MEDS: METOPROLOL TARTRATE 50 MG TABLET PO SCH ×2 (09:37→21:47)
[2021-08-28] MEDS: ROSUVASTATIN 20 MG TABLET PO SCH (09:37)
[2021-08-28] MEDS: ARIPiprazole 2 MG TABLET PO SCH (09:38)
[2021-08-28] MEDS: WARFARIN 5 MG TABLET PO SCH (09:38)
[2021-08-28] MEDS: GABAPENTIN 300 MG CAPSULE PO SCH ×3 (09:38→21:47)
[2021-08-28] MEDS: SPIRONOLACTONE 25 MG TABLET PO SCH (09:38)
[2021-08-28] MEDS: SERTRALINE 100 MG TABLET PO SCH (09:39)
[2021-08-28] MEDS: DAPAGLIFLOZIN 5 MG TABLET PO SCH (09:39)
[2021-08-28] MEDS: PANTOPRAZOLE 40 MG VIAL IV SCH ×2 (09:39→21:48)
[2021-08-28] MEDS: DEXT 5% NACL 0.9% KCL 40 MEQ 40 MEQ/1,000 ML BAG IV SCH ×2 (11:00→21:46)
[2021-08-28] MEDS ORDERED: WARFARIN 5 MG TABLET PO SCH (21:00)
[2021-08-28] MEDS: AMITRIPTYLINE 25 MG TABLET PO SCH (21:54)
[2021-08-29] MEDS: METOCLOPRAMIDE 10 MG/2 ML VIAL IV SCH ×2 (01:45→06:00)
[2021-08-29 05:20] LABS: Basophils # 0.1 10*3/uL (0.0-0.2); Basophils % 0.9 % (0.0-0.8); Eosinophils # 0.3 10*3/uL (0.0-0.87); Eosinophils % 5.7 % (0.00-10.9); Hematocrit 34.3 VOL% (35.7-47.0); Hemoglobin 10.4 GM/DL (12.0-16.0); Immature Granulocytes % 0.9 %; Immature Granulocytes Absolute 0.05 #; Lymphocytes # 1.7 10*3/uL (1.4-4.0); Lymphocytes % 30.6 % (21.3-54.2); Mean Corpuscular HGB Conc 30.3 GM/DL (32-36); Mean Corpuscular Volume 85.8 FL (87-102); Mean Platelet Volume 11.6 FL (9.6-12.0); Monocytes # 0.5 10*3/uL (0.11-0.8); Neutrophils % 53.9 % (38.7-73.9); Platelet Count 254 T/CUMM (130-400); Red Cell Distribution Width 16.5 % (9.3-17.3); White Blood Count 5.7 T/CUMM (4-12)
[2021-08-29 05:28] LABS: INR 2.5; PT Patient Result 25.8 SECS (10.5-12.0)
[2021-08-29 05:35] LABS: Calcium 9.2 MG/DL (8.5-10.1); Osmolality,Calculated 274.5 MOS/KG (273-304); Potassium 4.2 MMOL/L (3.5-5.1)
[2021-08-29] MEDS: HEPARIN DRIP 25,000 UNITS/500 ML PREMIX IV SCH (05:50)
[2021-08-29] MEDS: PANTOPRAZOLE 40 MG VIAL IV SCH (10:06)
[2021-08-29] MEDS: ARIPiprazole 2 MG TABLET PO SCH (10:06)
[2021-08-29] MEDS: ROSUVASTATIN 20 MG TABLET PO SCH (10:07)
[2021-08-29] MEDS: GABAPENTIN 300 MG CAPSULE PO SCH (10:07)
[2021-08-29] MEDS: METOPROLOL TARTRATE 50 MG TABLET PO SCH (10:07)
[2021-08-29] MEDS: SPIRONOLACTONE 25 MG TABLET PO SCH (10:07)
[2021-08-29] MEDS: SERTRALINE 100 MG TABLET PO SCH (10:07)
[2021-08-29] MEDS: DAPAGLIFLOZIN 5 MG TABLET PO SCH (10:07)
[2021-08-29] MEDS ORDERED: METOCLOPRAMIDE 5 MG TABLET PO SCH (12:00)
[2021-08-29 12:43] VITALS: BP 103/67
[2021-08-29] MEDS ORDERED: PANTOPRAZOLE 40 MG TABLET PO SCH (21:00)
== END 2021-08-29 16:00 | disposition home or self-care (01) | DRG 254 ==
LOC: N.ED 19:59 → N.EDINP 19:59 → SUATTDRO 22:37 → N.5E 08-20 12:23
PROVIDERS: ADMIT Internal Medicine Geriatric Medicine; ATTEND Emergency Medicine

== ENCOUNTER 2021-11-11 08:37 | Observation (INO) ==
[2021-11-11] MEDS ORDERED: ONDANSETRON 4 MG/2 ML VIAL IV STA (09:17)
[2021-11-11] MEDS ORDERED: PANTOPRAZOLE 40 MG VIAL IV STA (09:17)
[2021-11-11] MEDS ORDERED: SODIUM CHLORIDE 0.9% 1,000 ML IV STA ×2 (09:17→10:59)
[2021-11-11] MEDS ORDERED: METOCLOPRAMIDE 10 MG/2 ML VIAL IV STA (09:17)
[2021-11-11 09:23] LABS: Basophils % 0.3 % (0.0-0.8); Eosinophils % 0.2 % (0.00-10.9); Hematocrit 38.8 VOL% (35.7-47.0); Hemoglobin 11.6 GM/DL (12.0-16.0); Immature Granulocytes % 0.5 %; Immature Granulocytes Absolute 0.05 #; Lymphocytes # 0.8 10*3/uL (1.4-4.0); Lymphocytes % 7.4 % (21.3-54.2); Mean Corpuscular HGB Conc 29.9 GM/DL (32-36); Mean Corpuscular Volume 74.8 FL (87-102); Mean Platelet Volume 11.2 FL (9.6-12.0); Monocytes # 0.5 10*3/uL (0.11-0.8); Monocytes % 5.2 % (1.7-12.7); Neutrophils % 86.4 % (38.7-73.9); Platelet Count 425 T/CUMM (130-400); Red Blood Count 5.19 MC/CUMM (3.8-5.5); Red Cell Distribution Width 17.6 % (9.3-17.3); White Blood Count 10.2 T/CUMM (4-12)
[2021-11-11 09:43] LABS: Alanine Aminotransferase 34 U/L (13-56); Albumin 4.3 G/DL (3.4-5.0); Alkaline Phosphatase 105 U/L (45-117); Amylase 17 U/L (25-115); Aspartate Amino Transferase 36 U/L (0-37); Blood Urea Nitrogen 11 MG/DL (7-18); Calcium 10.2 MG/DL (8.5-10.1); Carbon Dioxide 22 MMOL/L (21-32); Chloride 104 MMOL/L (98-107); Glucose 185 MG/DL (74-106); Osmolality,Calculated 271.2 MOS/KG (273-304); Potassium 3.6 MMOL/L (3.5-5.1); Sodium 134 MMOL/L (136-145)
[2021-11-11 10:37] LABS: INR 3.8; PT Patient Result 37.7 SECS (10.5-12.0); Partial Thromboplastin Time 42.7 SECS (23.7-32.9)
[2021-11-11 10:39] LABS: Bilirubin,Urine Small mg/dL (Negative); Blood, Urine Trace mg/dL (Negative); Glucose,Urine (UA) Negative (Negative); Hyaline Casts,Urine 7 /LPF (0-3); Ketones,Urine Trace mg/dL (Negative); Mucus,Urine Occasional /LPF (Occasional); Nitrite,Urine Negative (Negative); Protein,Urine 30 mg/dL (Negative); Squamous Epithelial Cell,Urine Occasional /HPF (0-10); Urine Appearance Clear (Clear); Urine Color Yellow (Yellow); Urine Specific Gravity > 1.030 (1.001-1.035); Urine Urobilinogen 0.2 eU/dL (<2.0)
[2021-11-11] MEDS ORDERED: PNEUMOCOCCAL VACCINE (23 VALENT) 0.5 ML VIAL IM ONE (12:49)
[2021-11-11] MEDS ORDERED: PROMETHAZINE INJ 25 MG in SODIUM CHLORIDE 0.9% 50 ML IV PRN (15:00)
[2021-11-11] MEDS ORDERED: PROMETHAZINE 25 MG/1 ML VIAL ONE (15:01)
[2021-11-11] MEDS: SODIUM CHLORIDE 0.9% 1,000 ML IV SCH (17:00)
[2021-11-11] MEDS ORDERED: ACETAMINOPHEN 325 MG TABLET PO PRN (17:03)
[2021-11-11] MEDS: ONDANSETRON 4 MG/2 ML VIAL IV PRN (17:50)
[2021-11-11] MEDS: METOCLOPRAMIDE 10 MG/2 ML VIAL IV SCH ×2 (18:25→21:53)
[2021-11-11] MEDS: DOCUSATE SODIUM 100 MG CAPSULE PO SCH (21:52)
[2021-11-12] MEDS: SODIUM CHLORIDE 0.9% 1,000 ML IV SCH ×3 (02:14→21:03)
[2021-11-12] MEDS: PANTOPRAZOLE 40 MG VIAL IV SCH (08:09)
[2021-11-12] MEDS: METOCLOPRAMIDE 10 MG/2 ML VIAL IV SCH ×2 (08:09→11:29)
[2021-11-12] MEDS: DOCUSATE SODIUM 100 MG CAPSULE PO SCH ×2 (08:09→20:48)
[2021-11-12] MEDS: ONDANSETRON 4 MG/2 ML VIAL IV PRN (09:54)
[2021-11-12] MEDS ORDERED: GLUCAGON 1 MG VIAL IM PRN (14:09)
[2021-11-12] MEDS ORDERED: DEXTROSE 10% 250 ML BAG IV PRN (14:09)
[2021-11-12 14:39] LABS: INR 3.9; PT Patient Result 39.5 SECS (10.5-12.0)
[2021-11-12] MEDS: GABAPENTIN 300 MG CAPSULE PO SCH ×2 (15:01→20:33)
[2021-11-12] MEDS: INSULIN REGULAR 100 UNIT/ML SUBCUT SCH ×2 (16:01→20:48)
[2021-11-12] MEDS: METOCLOPRAMIDE 10 MG/10 ML UDCUP PO SCH ×2 (16:31→20:34)
[2021-11-12] MEDS: METOPROLOL TARTRATE 50 MG TABLET PO SCH (20:34)
[2021-11-12] MEDS: SACUBITRIL/VALSARTAN 49-51 MG TABLET PO SCH (20:34)
[2021-11-12] MEDS ORDERED: WARFARIN 5 MG TABLET PO SCH (21:00)
[2021-11-12] MEDS ORDERED: PANTOPRAZOLE 40 MG TABLET PO SCH (21:00)
[2021-11-12] MEDS ORDERED: ROSUVASTATIN 20 MG TABLET PO SCH (21:00)
[2021-11-13] MEDS: SODIUM CHLORIDE 0.9% 1,000 ML IV SCH (04:40)
[2021-11-13 05:13] LABS: Albumin 3.2 G/DL (3.4-5.0); Bilirubin,Total 0.6 MG/DL (0.20-1.00); Calcium 8.8 MG/DL (8.5-10.1); Potassium 3.4 MMOL/L (3.5-5.1); Total Protein 6.3 G/DL (6.4-8.2)
[2021-11-13 05:21] LABS: PT Patient Result 40.1 SECS (10.5-12.0)
[2021-11-13 05:35] LABS: Basophils % 0.3 % (0.0-0.8); Eosinophils # 0.1 10*3/uL (0.0-0.87); Eosinophils % 2.1 % (0.00-10.9); Hemoglobin 9.7 GM/DL (12.0-16.0); Immature Granulocytes % 1.1 %; Immature Granulocytes Absolute 0.07 #; Lymphocytes % 15.6 % (21.3-54.2); Mean Corpuscular HGB Conc 28.6 GM/DL (32-36); Mean Corpuscular Volume 77.8 FL (87-102); Mean Platelet Volume 11.7 FL (9.6-12.0); Monocytes # 0.3 10*3/uL (0.11-0.8); Monocytes % 4.8 % (1.7-12.7); Neutrophils % 76.1 % (38.7-73.9); Platelet Count 269 T/CUMM (130-400); Red Blood Count 4.36 MC/CUMM (3.8-5.5); Red Cell Distribution Width 17.4 % (9.3-17.3); White Blood Count 6.3 T/CUMM (4-12)
[2021-11-13 05:44] LABS: Hematocrit 33.9 VOL% (35.7-47.0)
[2021-11-13 05:50] LABS: Elliptocytes 1+; Platelet Estimate Adequate
[2021-11-13] MEDS: INSULIN REGULAR 100 UNIT/ML SUBCUT SCH ×2 (08:04→11:09)
[2021-11-13] MEDS: SACUBITRIL/VALSARTAN 49-51 MG TABLET PO SCH (08:28)
[2021-11-13] MEDS: METOCLOPRAMIDE 10 MG/10 ML UDCUP PO SCH ×2 (08:28→11:33)
[2021-11-13] MEDS: DOCUSATE SODIUM 100 MG CAPSULE PO SCH (08:28)
[2021-11-13] MEDS: GABAPENTIN 300 MG CAPSULE PO SCH (08:28)
[2021-11-13] MEDS: METOPROLOL TARTRATE 50 MG TABLET PO SCH (08:28)
[2021-11-13] MEDS: PANTOPRAZOLE 40 MG VIAL IV SCH (08:29)
[2021-11-13] MEDS ORDERED: FUROSEMIDE 40 MG TABLET PO SCH (09:00)
[2021-11-13] MEDS ORDERED: SPIRONOLACTONE 25 MG TABLET PO SCH (09:00)
[2021-11-13] MEDS ORDERED: MAGNESIUM OXIDE 400 MG TABLET PO SCH (09:00)
[2021-11-13] MEDS ORDERED: POTASSIUM CHLORIDE 20 MEQ TABLET PO SCH (09:00)
[2021-11-13 11:51] VITALS: BP 117/64
== END 2021-11-13 14:25 | disposition home or self-care (01) ==
LOC: N.EDINP 08:37 → N.ED 08:37 → N.3E 17:19
PROVIDERS: ADMIT Family Medicine; ATTEND Family Medicine

== ENCOUNTER 2021-11-20 12:30 | Inpatient (IN) ==
[2021-11-20] MEDS ORDERED: PANTOPRAZOLE 40 MG VIAL IV STA (12:53)
[2021-11-20] MEDS ORDERED: SODIUM CHLORIDE 0.9% 1,000 ML IV STA (12:53)
[2021-11-20] MEDS ORDERED: SODIUM CHLORIDE 0.9% 500 ML IV STA (12:59)
[2021-11-20 13:17] LABS: Basophils % 0.6 % (0.0-0.8); Eosinophils % 0.4 % (0.00-10.9); Hematocrit 31.5 VOL% (35.7-47.0); Hemoglobin 9.2 GM/DL (12.0-16.0); Immature Granulocytes % 0.2 %; Immature Granulocytes Absolute 0.01 #; Lymphocytes # 0.9 10*3/uL (1.4-4.0); Lymphocytes % 17.1 % (21.3-54.2); Mean Corpuscular HGB Conc 29.2 GM/DL (32-36); Mean Corpuscular Volume 74.8 FL (87-102); Mean Platelet Volume 11.3 FL (9.6-12.0); Monocytes # 0.3 10*3/uL (0.11-0.8); Monocytes % 6.4 % (1.7-12.7); Neutrophils % 75.3 % (38.7-73.9); Platelet Count 321 T/CUMM (130-400); Red Blood Count 4.21 MC/CUMM (3.8-5.5); Red Cell Distribution Width 17.1 % (9.3-17.3)
[2021-11-20 13:31] LABS: INR 2.9; PT Patient Result 29.8 SECS (10.1-12.1)
[2021-11-20 13:39] LABS: Albumin 3.6 G/DL (3.4-5.0); Calcium 9.3 MG/DL (8.5-10.1); Osmolality,Calculated 275.5 MOS/KG (273-304); Total Protein 6.5 G/DL (6.4-8.2)
[2021-11-20] MEDS ORDERED: ONDANSETRON 4 MG/2 ML VIAL ONE (14:03)
[2021-11-20] MEDS ORDERED: ONDANSETRON 4 MG/2 ML VIAL IV ONE (14:06)
[2021-11-20] MEDS ORDERED: ACETAMINOPHEN 325 MG TABLET PO PRN (15:05)
[2021-11-20] MEDS ORDERED: ONDANSETRON 4 MG/2 ML VIAL IV PRN (15:05)
[2021-11-20] MEDS ORDERED: PROMETHAZINE 12.5 MG SUPP RECTAL PRN (15:05)
[2021-11-20] MEDS ORDERED: ONDANSETRON ODT 4 MG TABLET PO PRN (17:22)
[2021-11-20] MEDS: POTASSIUM CHLORIDE RIDER 10 MEQ/100 ML PREMIX IV SCH ×2 (17:45→19:53)
[2021-11-20] MEDS: METOCLOPRAMIDE 10 MG/10 ML UDCUP PO SCH ×2 (17:45→21:13)
[2021-11-20] MEDS ORDERED: POTASSIUM CHLORIDE RIDER 10 MEQ/100 ML PREMIX IV SCH (20:00)
[2021-11-20] MEDS: PANTOPRAZOLE 40 MG TABLET PO SCH (21:12)
[2021-11-20] MEDS: SACUBITRIL/VALSARTAN 49-51 MG TABLET PO SCH (21:12)
[2021-11-20] MEDS: POTASSIUM CHLORIDE 20 MEQ TABLET PO PRN ×2 (21:12→23:27)
[2021-11-20] MEDS: ROSUVASTATIN 20 MG TABLET PO SCH (21:13)
[2021-11-20] MEDS: GABAPENTIN 300 MG CAPSULE PO SCH (21:13)
[2021-11-20] MEDS: DOCUSATE SODIUM 100 MG CAPSULE PO SCH (21:14)
[2021-11-21] MEDS: POTASSIUM CHLORIDE 20 MEQ TABLET PO PRN ×2 (01:35→03:35)
[2021-11-21 06:18] LABS: INR 2.3
[2021-11-21 06:39] LABS: Albumin 3.4 G/DL (3.4-5.0); Calcium 9.1 MG/DL (8.5-10.1); Potassium 3.3 MMOL/L (3.5-5.1); Total Protein 6.2 G/DL (6.4-8.2)
[2021-11-21 07:03] LABS: Basophils % 0.5 % (0.0-0.8); Eosinophils # 0.1 10*3/uL (0.0-0.87); Eosinophils % 2.4 % (0.00-10.9); Hematocrit 31.1 VOL% (35.7-47.0); Hemoglobin 9.1 GM/DL (12.0-16.0); Immature Granulocytes % 0.2 %; Immature Granulocytes Absolute 0.01 #; Lymphocytes # 0.9 10*3/uL (1.4-4.0); Lymphocytes % 22.1 % (21.3-54.2); Mean Corpuscular HGB Conc 29.3 GM/DL (32-36); Mean Corpuscular Volume 74.9 FL (87-102); Mean Platelet Volume 12.1 FL (9.6-12.0); Monocytes # 0.4 10*3/uL (0.11-0.8); Monocytes % 8.6 % (1.7-12.7); Neutrophils % 66.2 % (38.7-73.9); Platelet Count 320 T/CUMM (130-400); Red Blood Count 4.15 MC/CUMM (3.8-5.5); Red Cell Distribution Width 17.1 % (9.3-17.3); White Blood Count 4.2 T/CUMM (4-12)
[2021-11-21 07:21] LABS: Platelet Estimate Normal
[2021-11-21 07:22] LABS: Anisocytosis 1+; Ovalocytes Few; Tear Drop Cells Few
[2021-11-21] MEDS: DOCUSATE SODIUM 100 MG CAPSULE PO SCH ×2 (08:11→20:04)
[2021-11-21] MEDS: SPIRONOLACTONE 25 MG TABLET PO SCH (08:11)
[2021-11-21] MEDS: POTASSIUM CHLORIDE 20 MEQ TABLET PO SCH (08:11)
[2021-11-21] MEDS: PANTOPRAZOLE 40 MG TABLET PO SCH (08:11)
[2021-11-21] MEDS: METOCLOPRAMIDE 10 MG/10 ML UDCUP PO SCH (08:11)
[2021-11-21] MEDS: GABAPENTIN 300 MG CAPSULE PO SCH ×3 (08:11→20:05)
[2021-11-21] MEDS: MAGNESIUM OXIDE 400 MG TABLET PO SCH (08:11)
[2021-11-21] MEDS: SACUBITRIL/VALSARTAN 49-51 MG TABLET PO SCH ×2 (08:12→20:04)
[2021-11-21] MEDS ORDERED: PANTOPRAZOLE 40 MG TABLET PO SCH (09:00)
[2021-11-21] MEDS ORDERED: PANTOPRAZOLE 40 MG VIAL IV SCH (09:00)
[2021-11-21 10:29] LABS: % Iron Saturation 5.6 % (18-50)
[2021-11-21] MEDS: POTASSIUM CHLORIDE INJ 10 MEQ in DEXTROSE 5% LACTATED RINGERS 1,000 ML IV SCH ×2 (11:30→20:04)
[2021-11-21] MEDS: METOCLOPRAMIDE 10 MG/2 ML VIAL IV SCH ×2 (13:21→17:22)
[2021-11-21] MEDS: WARFARIN 5 MG TABLET PO SCH (17:22)
[2021-11-21] MEDS: ROSUVASTATIN 20 MG TABLET PO SCH (20:04)
[2021-11-21] MEDS: PANTOPRAZOLE 40 MG VIAL IV SCH (20:06)
[2021-11-22] MEDS: POTASSIUM CHLORIDE INJ 10 MEQ in DEXTROSE 5% LACTATED RINGERS 1,000 ML IV SCH ×3 (06:15→23:10)
[2021-11-22] MEDS: METOCLOPRAMIDE 10 MG/2 ML VIAL IV SCH ×5 (06:15→23:10)
[2021-11-22 06:19] LABS: INR 2.3; PT Patient Result 24.3 SECS (10.1-12.1)
[2021-11-22 06:26] LABS: Calcium 8.8 MG/DL (8.5-10.1); Osmolality,Calculated 284.7 MOS/KG (273-304); Potassium 3.4 MMOL/L (3.5-5.1)
[2021-11-22 06:50] LABS: Basophils % 0.8 % (0.0-0.8); Eosinophils # 0.2 10*3/uL (0.0-0.87); Eosinophils % 4.4 % (0.00-10.9); Hematocrit 30.6 VOL% (35.7-47.0); Immature Granulocytes % 0.5 %; Immature Granulocytes Absolute 0.02 #; Lymphocytes % 25.9 % (21.3-54.2); Mean Corpuscular HGB Conc 29.4 GM/DL (32-36); Mean Platelet Volume 12.1 FL (9.6-12.0); Monocytes # 0.4 10*3/uL (0.11-0.8); Monocytes % 10.9 % (1.7-12.7); Neutrophils % 57.5 % (38.7-73.9); Platelet Count 285 T/CUMM (130-400); Red Blood Count 4.08 MC/CUMM (3.8-5.5); Red Cell Distribution Width 17.1 % (9.3-17.3); White Blood Count 3.9 T/CUMM (4-12)
[2021-11-22 07:07] LABS: Platelet Estimate Normal
[2021-11-22 07:08] LABS: Anisocytosis 1+; Ovalocytes Few
[2021-11-22] MEDS: SPIRONOLACTONE 25 MG TABLET PO SCH (09:34)
[2021-11-22] MEDS: SACUBITRIL/VALSARTAN 49-51 MG TABLET PO SCH ×2 (09:34→21:18)
[2021-11-22] MEDS: MAGNESIUM OXIDE 400 MG TABLET PO SCH (09:34)
[2021-11-22] MEDS: POTASSIUM CHLORIDE 20 MEQ TABLET PO SCH (09:34)
[2021-11-22] MEDS: GABAPENTIN 300 MG CAPSULE PO SCH ×3 (09:34→21:18)
[2021-11-22] MEDS: DOCUSATE SODIUM 100 MG CAPSULE PO SCH ×2 (09:34→21:18)
[2021-11-22] MEDS: PANTOPRAZOLE 40 MG VIAL IV SCH ×2 (09:35→21:19)
[2021-11-22] MEDS: FERRIC GLUCONATE COMPLEX 125 MG in SODIUM CHLORIDE 0.9% 100 ML IV SCH (14:19)
[2021-11-22] MEDS: WARFARIN 5 MG TABLET PO SCH (18:19)
[2021-11-22] MEDS: ROSUVASTATIN 20 MG TABLET PO SCH (21:18)
[2021-11-23 05:20] LABS: Basophils % 0.8 % (0.0-0.8); Eosinophils # 0.2 10*3/uL (0.0-0.87); Eosinophils % 4.6 % (0.00-10.9); Hematocrit 30.2 VOL% (35.7-47.0); Hemoglobin 8.8 GM/DL (12.0-16.0); Immature Granulocytes % 0.3 %; Immature Granulocytes Absolute 0.01 #; Mean Corpuscular HGB Conc 29.1 GM/DL (32-36); Mean Corpuscular Volume 75.9 FL (87-102); Mean Platelet Volume 11.3 FL (9.6-12.0); Monocytes # 0.4 10*3/uL (0.11-0.8); Monocytes % 9.8 % (1.7-12.7); Neutrophils % 56.5 % (38.7-73.9); Platelet Count 259 T/CUMM (130-400); Red Blood Count 3.98 MC/CUMM (3.8-5.5); White Blood Count 3.7 T/CUMM (4-12)
[2021-11-23 05:25] LABS: INR 3.6; PT Patient Result 35.9 SECS (10.1-12.1)
[2021-11-23] MEDS: METOCLOPRAMIDE 10 MG/2 ML VIAL IV SCH (05:43)
[2021-11-23 05:49] LABS: Osmolality,Calculated 285.6 MOS/KG (273-304); Potassium 3.5 MMOL/L (3.5-5.1)
[2021-11-23] MEDS: POTASSIUM CHLORIDE INJ 10 MEQ in DEXTROSE 5% LACTATED RINGERS 1,000 ML IV SCH ×3 (06:39→22:58)
[2021-11-23] MEDS: METOCLOPRAMIDE 10 MG/10 ML UDCUP PO SCH ×4 (09:04→21:00)
[2021-11-23] MEDS: POTASSIUM CHLORIDE 20 MEQ TABLET PO SCH (09:05)
[2021-11-23] MEDS: SPIRONOLACTONE 25 MG TABLET PO SCH (09:05)
[2021-11-23] MEDS: GABAPENTIN 300 MG CAPSULE PO SCH ×3 (09:05→21:00)
[2021-11-23] MEDS: PANTOPRAZOLE 40 MG TABLET PO SCH ×2 (09:05→21:00)
[2021-11-23] MEDS: SACUBITRIL/VALSARTAN 49-51 MG TABLET PO SCH ×2 (09:05→21:00)
[2021-11-23] MEDS: DOCUSATE SODIUM 100 MG CAPSULE PO SCH ×2 (09:05→21:00)
[2021-11-23] MEDS: MAGNESIUM OXIDE 400 MG TABLET PO SCH (09:05)
[2021-11-23] MEDS: FERRIC GLUCONATE COMPLEX 125 MG in SODIUM CHLORIDE 0.9% 100 ML IV SCH (09:06)
[2021-11-23] MEDS: ROSUVASTATIN 20 MG TABLET PO SCH (21:00)
[2021-11-24 05:16] LABS: INR 3.4; PT Patient Result 34.8 SECS (10.1-12.1)
[2021-11-24] MEDS: PANTOPRAZOLE 40 MG TABLET PO SCH (06:42)
[2021-11-24] MEDS: METOCLOPRAMIDE 10 MG/10 ML UDCUP PO SCH ×3 (07:10→16:41)
[2021-11-24] MEDS: POTASSIUM CHLORIDE INJ 10 MEQ in DEXTROSE 5% LACTATED RINGERS 1,000 ML IV SCH ×2 (07:10→16:39)
[2021-11-24] MEDS: SACUBITRIL/VALSARTAN 49-51 MG TABLET PO SCH (09:14)
[2021-11-24] MEDS: SPIRONOLACTONE 25 MG TABLET PO SCH (09:14)
[2021-11-24] MEDS: MAGNESIUM OXIDE 400 MG TABLET PO SCH (09:14)
[2021-11-24] MEDS: DOCUSATE SODIUM 100 MG CAPSULE PO SCH (09:14)
[2021-11-24] MEDS: GABAPENTIN 300 MG CAPSULE PO SCH ×2 (09:14→16:39)
[2021-11-24] MEDS: POTASSIUM CHLORIDE 20 MEQ TABLET PO SCH (09:14)
[2021-11-24] MEDS: FERRIC GLUCONATE COMPLEX 125 MG in SODIUM CHLORIDE 0.9% 100 ML IV SCH (09:18)
[2021-11-24 12:41] VITALS: BP 131/69
== END 2021-11-24 16:38 | disposition home health service (06) | DRG 249 ==
LOC: N.ED 12:30 → N.EDINP 12:30 → N.5E 16:32
PROVIDERS: ADMIT Family Medicine; ATTEND Family Medicine

== ENCOUNTER 2021-12-28 17:59 | Observation (INO) ==
[2021-12-28 19:31] LABS: Basophils % 0.3 % (0.0-0.8); Eosinophils # 0.1 10*3/uL (0.0-0.87); Eosinophils % 0.7 % (0.00-10.9); Hematocrit 45.1 VOL% (35.7-47.0); Hemoglobin 13.8 GM/DL (12.0-16.0); Immature Granulocytes % 0.4 %; Immature Granulocytes Absolute 0.04 #; Lymphocytes # 1.6 10*3/uL (1.4-4.0); Lymphocytes % 15.2 % (21.3-54.2); Mean Corpuscular HGB Conc 30.6 GM/DL (32-36); Mean Corpuscular Volume 77.6 FL (87-102); Mean Platelet Volume 11.2 FL (9.6-12.0); Monocytes # 0.6 10*3/uL (0.11-0.8); Neutrophils % 77.4 % (38.7-73.9); Platelet Count 343 T/CUMM (130-400); Red Blood Count 5.81 MC/CUMM (3.8-5.5); Red Cell Distribution Width 21.5 % (9.3-17.3); White Blood Count 10.3 T/CUMM (4-12)
[2021-12-28 19:52] LABS: Bilirubin,Total 0.6 MG/DL (0.20-1.00); Calcium 10.1 MG/DL (8.5-10.1); INR 2.7; PT Patient Result 27.6 SECS (10.1-12.1); Potassium 4.3 MMOL/L (3.5-5.1); Total Protein 8.2 G/DL (6.4-8.2)
[2021-12-28 20:06] LABS: Hyaline Casts,Urine 14 /LPF (0-3); Mucus,Urine Few /LPF (Occasional); RBC,Urine 4 /HPF (0-4); Squamous Epithelial Cell,Urine Occasional /HPF (0-10)
[2021-12-28 20:07] LABS: Bilirubin,Urine Negative (Negative); Blood, Urine Negative (Negative); Glucose,Urine (UA) Negative (Negative); Ketones,Urine Trace mg/dL (Negative); Nitrite,Urine Negative (Negative); Protein,Urine Trace mg/dL (Negative); Urine Appearance Slightly Hazy (Clear); Urine Color Yellow (Yellow); Urine Specific Gravity 1.025 (1.001-1.035); Urine Urobilinogen 0.2 eU/dL (<2.0)
[2021-12-28] MEDS ORDERED: ONDANSETRON 4 MG/2 ML VIAL IV STA (20:20)
[2021-12-28] MEDS ORDERED: KETOROLAC 30 MG/1 ML VIAL IV STA (20:20)
[2021-12-28] MEDS ORDERED: SODIUM CHLORIDE 0.9% 500 ML IV STA (20:20)
[2021-12-28] MEDS ORDERED: HYDROmorphone 1 MG/1 ML SYRINGE IV STA (20:20)
[2021-12-28] MEDS ORDERED: ALBUTEROL/IPRATROPIUM 3 ML NEB RESP TX PRN (23:38)
[2021-12-28] MEDS ORDERED: ONDANSETRON 4 MG/2 ML VIAL IV PRN (23:38)
[2021-12-28] MEDS ORDERED: HYDROmorphone 1 MG/1 ML SYRINGE IV PRN (23:38)
[2021-12-28] MEDS ORDERED: ACETAMINOPHEN 325 MG TABLET PO PRN (23:38)
[2021-12-29] MEDS: SODIUM CHLORIDE 0.9% 1,000 ML IV SCH ×2 (00:04→14:08)
[2021-12-29 05:39] LABS: Basophils % 0.5 % (0.0-0.8); Eosinophils # 0.1 10*3/uL (0.0-0.87); Eosinophils % 1.8 % (0.00-10.9); Hematocrit 40.7 VOL% (35.7-47.0); Hemoglobin 12.6 GM/DL (12.0-16.0); Immature Granulocytes % 0.2 %; Immature Granulocytes Absolute 0.01 #; Lymphocytes # 1.5 10*3/uL (1.4-4.0); Lymphocytes % 24.1 % (21.3-54.2); Mean Corpuscular Volume 78.6 FL (87-102); Monocytes # 0.5 10*3/uL (0.11-0.8); Monocytes % 8.2 % (1.7-12.7); Neutrophils % 65.2 % (38.7-73.9); Platelet Count 264 T/CUMM (130-400); Red Blood Count 5.18 MC/CUMM (3.8-5.5); Red Cell Distribution Width 21.2 % (9.3-17.3); White Blood Count 6.2 T/CUMM (4-12)
[2021-12-29] MEDS: FUROSEMIDE 40 MG TABLET PO SCH (08:39)
[2021-12-29] MEDS: POTASSIUM CHLORIDE 20 MEQ TABLET PO SCH (08:39)
[2021-12-29] MEDS: SACUBITRIL/VALSARTAN 49-51 MG TABLET PO SCH ×2 (08:40→20:54)
[2021-12-29] MEDS: METOPROLOL TARTRATE 50 MG TABLET PO SCH ×2 (08:40→20:55)
[2021-12-29] MEDS: SPIRONOLACTONE 25 MG TABLET PO SCH (08:40)
[2021-12-29] MEDS: GABAPENTIN 300 MG CAPSULE PO SCH ×3 (08:40→20:54)
[2021-12-29] MEDS: ARIPiprazole 2 MG TABLET PO SCH (08:40)
[2021-12-29] MEDS ORDERED: PANTOPRAZOLE 40 MG TABLET PO SCH (09:00)
[2021-12-29] MEDS ORDERED: PANTOPRAZOLE 40 MG VIAL IV SCH (09:00)
[2021-12-29] MEDS: METOCLOPRAMIDE 10 MG/2 ML VIAL IV SCH ×2 (17:57→23:38)
[2021-12-29] MEDS ORDERED: WARFARIN 2.5 MG TABLET PO SCH (18:00)
[2021-12-29] MEDS: PANTOPRAZOLE 40 MG VIAL IV SCH (20:56)
[2021-12-29] MEDS ORDERED: ROSUVASTATIN 20 MG TABLET PO SCH (21:00)
[2021-12-30] MEDS: SODIUM CHLORIDE 0.9% 1,000 ML IV SCH ×2 (04:00→16:05)
[2021-12-30] MEDS: METOCLOPRAMIDE 10 MG/2 ML VIAL IV SCH ×2 (05:17→13:15)
[2021-12-30] MEDS: ARIPiprazole 2 MG TABLET PO SCH (09:45)
[2021-12-30] MEDS: PANTOPRAZOLE 40 MG VIAL IV SCH (09:46)
[2021-12-30] MEDS: FUROSEMIDE 40 MG TABLET PO SCH (09:46)
[2021-12-30] MEDS: SACUBITRIL/VALSARTAN 49-51 MG TABLET PO SCH (09:46)
[2021-12-30] MEDS: POTASSIUM CHLORIDE 20 MEQ TABLET PO SCH (09:46)
[2021-12-30] MEDS: GABAPENTIN 300 MG CAPSULE PO SCH ×2 (09:46→16:01)
[2021-12-30] MEDS: SPIRONOLACTONE 25 MG TABLET PO SCH (09:46)
[2021-12-30] MEDS: METOPROLOL TARTRATE 50 MG TABLET PO SCH (09:46)
[2021-12-30 19:48] VITALS: BP 107/63
== END 2021-12-30 21:00 | disposition home health service (06) ==
LOC: EDBD → EDUNIT# → N.ED 17:59 → N.EDINP 17:59 → N.2W 23:13
PROVIDERS: ADMIT Surgery; ATTEND Surgery

== ENCOUNTER 2022-01-30 02:04 | Inpatient (IN) ==
[2022-01-30] MEDS ORDERED: ONDANSETRON 4 MG/2 ML VIAL IV STA (02:42)
[2022-01-30] MEDS ORDERED: SODIUM CHLORIDE 0.9% 1,000 ML IV STA ×2 (02:42→05:09)
[2022-01-30] MEDS ORDERED: MORPHINE 2 MG/1 ML SYRINGE IV STA (02:42)
[2022-01-30] MEDS ORDERED: PANTOPRAZOLE INJ 80 MG in SODIUM CHLORIDE 0.9% 100 ML IV ONE (03:37)
[2022-01-30] MEDS ORDERED: ALUM/MAG/SIMETH/LIDO VISC 1:1 30 ML BOTTLE PO STA (03:37)
[2022-01-30 03:44] LABS: Basophils # 0.1 10*3/uL (0.0-0.2); Basophils % 0.7 % (0.0-0.8); Eosinophils # 0.3 10*3/uL (0.0-0.87); Eosinophils % 3.7 % (0.00-10.9); Hemoglobin 13.9 GM/DL (12.0-16.0); Immature Granulocytes % 0.1 %; Immature Granulocytes Absolute 0.01 #; Lymphocytes # 1.5 10*3/uL (1.4-4.0); Mean Corpuscular HGB Conc 33.1 GM/DL (32-36); Mean Corpuscular Volume 74.7 FL (87-102); Monocytes # 0.6 10*3/uL (0.11-0.8); Monocytes % 9.1 % (1.7-12.7); Neutrophils % 64.4 % (38.7-73.9); Platelet Count 283 T/CUMM (130-400); Red Blood Count 5.62 MC/CUMM (3.8-5.5); Red Cell Distribution Width 18.1 % (9.3-17.3); White Blood Count 6.8 T/CUMM (4-12)
[2022-01-30] MEDS ORDERED: PANTOPRAZOLE 40 MG VIAL IV ONE (03:50)
[2022-01-30 03:53] LABS: Bilirubin,Urine Small mg/dL (Negative); Blood, Urine Negative (Negative); Glucose,Urine (UA) Negative (Negative); Ketones,Urine 40 mg/dL (Negative); Nitrite,Urine Negative (Negative); Protein,Urine Trace mg/dL (Negative); Urine Appearance Clear (Clear); Urine Color Yellow (Yellow); Urine Specific Gravity 1.015 (1.001-1.035); Urine pH 6.5 (4.5-8.0)
[2022-01-30 03:56] LABS: Hyaline Casts,Urine 14 /LPF (0-3); Mucus,Urine Occasional /LPF (Occasional); RBC,Urine 2 /HPF (0-4); Squamous Epithelial Cell,Urine Occasional /HPF (0-10)
[2022-01-30 04:04] LABS: Elliptocytes Few; Hypochromia 1+; Microcytosis 1+; Platelet Estimate Normal
[2022-01-30 04:13] LABS: Bilirubin,Total 1.1 MG/DL (0.20-1.00); Calcium 10.2 MG/DL (8.5-10.1); Potassium 2.9 MMOL/L (3.5-5.1)
[2022-01-30] MEDS ORDERED: MORPHINE 2 MG/1 ML SYRINGE IV PRN (05:12)
[2022-01-30] MEDS ORDERED: cefTRIAXone 1,000 MG in SODIUM CHLORIDE 0.9% 100 ML IV STA (05:21)
[2022-01-30] MEDS: PANTOPRAZOLE INJ 200 MG in SODIUM CHLORIDE 0.9% 250 ML IV SCH (06:15)
[2022-01-30 07:00] LABS: INR 1.3; PT Patient Result 14.4 SECS (10.1-12.1); Partial Thromboplastin Time 31.5 SECS (23.7-32.9)
[2022-01-30] MEDS: cefTRIAXone 1,000 MG in SODIUM CHLORIDE 0.9% 100 ML IV SCH (07:10)
[2022-01-30] MEDS: SODIUM CHLORIDE 0.9% 1,000 ML IV SCH ×2 (07:10→19:18)
[2022-01-30] MEDS: SPIRONOLACTONE 25 MG TABLET PO SCH (09:05)
[2022-01-30] MEDS: SACUBITRIL/VALSARTAN 49-51 MG TABLET PO SCH ×2 (09:05→22:58)
[2022-01-30] MEDS: ARIPiprazole 2 MG TABLET PO SCH (09:05)
[2022-01-30] MEDS: ROSUVASTATIN 20 MG TABLET PO SCH (09:05)
[2022-01-30] MEDS: METOPROLOL TARTRATE 50 MG TABLET PO SCH ×2 (09:05→21:46)
[2022-01-30] MEDS: FUROSEMIDE 40 MG TABLET PO SCH (09:05)
[2022-01-30] MEDS ORDERED: DICYCLOMINE 20 MG TABLET PO PRN (11:41)
[2022-01-30] MEDS ORDERED: ONDANSETRON ODT 4 MG TABLET PO PRN (18:00)
[2022-01-30] MEDS: POTASSIUM CHLORIDE 20 MEQ TABLET PO SCH (21:46)
[2022-01-31] MEDS ORDERED: INFLUENZA VIRUS VACCINE 0.5 ML SYRINGE IM ONE (00:45)
[2022-01-31 04:49] LABS: Basophils % 0.7 % (0.0-0.8); Eosinophils # 0.1 10*3/uL (0.0-0.87); Eosinophils % 2.8 % (0.00-10.9); Hematocrit 36.1 VOL% (35.7-47.0); Hemoglobin 11.6 GM/DL (12.0-16.0); Immature Granulocytes % 0.5 %; Immature Granulocytes Absolute 0.02 #; Lymphocytes # 1.2 10*3/uL (1.4-4.0); Lymphocytes % 27.7 % (21.3-54.2); Mean Corpuscular HGB Conc 32.1 GM/DL (32-36); Mean Corpuscular Volume 77.3 FL (87-102); Monocytes # 0.3 10*3/uL (0.11-0.8); Neutrophils % 60.3 % (38.7-73.9); Platelet Count 175 T/CUMM (130-400); Red Blood Count 4.67 MC/CUMM (3.8-5.5); Red Cell Distribution Width 17.6 % (9.3-17.3); White Blood Count 4.2 T/CUMM (4-12)
[2022-01-31 04:58] LABS: INR 1.5; PT Patient Result 15.7 SECS (10.1-12.1)
[2022-01-31 05:12] LABS: Albumin 2.9 G/DL (3.4-5.0); Bilirubin,Total 0.4 MG/DL (0.20-1.00); Calcium 8.7 MG/DL (8.5-10.1); Osmolality,Calculated 283.8 MOS/KG (273-304); Potassium 2.8 MMOL/L (3.5-5.1); Total Protein 5.4 G/DL (6.4-8.2)
[2022-01-31] MEDS: cefTRIAXone 1,000 MG in SODIUM CHLORIDE 0.9% 100 ML IV SCH (05:26)
[2022-01-31] MEDS: PANTOPRAZOLE INJ 200 MG in SODIUM CHLORIDE 0.9% 250 ML IV SCH (10:03)
[2022-01-31] MEDS: POTASSIUM CHLORIDE 20 MEQ TABLET PO SCH ×2 (10:04→20:24)
[2022-01-31] MEDS: ARIPiprazole 2 MG TABLET PO SCH (10:04)
[2022-01-31] MEDS: ROSUVASTATIN 20 MG TABLET PO SCH (10:05)
[2022-01-31] MEDS: ONDANSETRON 4 MG/2 ML VIAL IV PRN ×2 (10:52→17:29)
[2022-01-31] MEDS ORDERED: POTASSIUM CHLORIDE 20 MEQ TABLET PO PRN (11:01)
[2022-01-31] MEDS: SACUBITRIL/VALSARTAN 49-51 MG TABLET PO SCH ×2 (12:43→20:24)
[2022-01-31] MEDS: SPIRONOLACTONE 25 MG TABLET PO SCH (12:43)
[2022-01-31] MEDS: METOPROLOL TARTRATE 50 MG TABLET PO SCH ×2 (12:43→20:24)
[2022-01-31] MEDS: FUROSEMIDE 40 MG TABLET PO SCH (12:43)
[2022-01-31] MEDS: ENOXAPARIN 40 MG/0.4 ML SYRINGE SUBCUT SCH (13:24)
[2022-01-31] MEDS: SODIUM CHLORIDE 0.9% 1,000 ML IV SCH (15:42)
[2022-01-31] MEDS ORDERED: WARFARIN 5 MG TABLET PO SCH (18:00)
[2022-01-31] MEDS: PROMETHAZINE 25 MG/1 ML VIAL IM PRN (20:25)
[2022-02-01] MEDS: PROMETHAZINE 25 MG/1 ML VIAL IM PRN ×3 (02:36→21:59)
[2022-02-01 04:50] LABS: Basophils % 0.7 % (0.0-0.8); Eosinophils # 0.1 10*3/uL (0.0-0.87); Eosinophils % 2.4 % (0.00-10.9); Hematocrit 37.6 VOL% (35.7-47.0); Hemoglobin 11.9 GM/DL (12.0-16.0); Immature Granulocytes % 0.2 %; Immature Granulocytes Absolute 0.01 #; Lymphocytes # 1.6 10*3/uL (1.4-4.0); Lymphocytes % 30.5 % (21.3-54.2); Mean Corpuscular HGB Conc 31.6 GM/DL (32-36); Mean Corpuscular Volume 77.8 FL (87-102); Monocytes # 0.4 10*3/uL (0.11-0.8); Monocytes % 8.2 % (1.7-12.7); Platelet Count 202 T/CUMM (130-400); Red Blood Count 4.83 MC/CUMM (3.8-5.5); White Blood Count 5.4 T/CUMM (4-12)
[2022-02-01 05:14] LABS: Albumin 2.9 G/DL (3.4-5.0); Bilirubin,Total 0.5 MG/DL (0.20-1.00); Calcium 8.5 MG/DL (8.5-10.1); Osmolality,Calculated 286.6 MOS/KG (273-304); Potassium 3.1 MMOL/L (3.5-5.1); Total Protein 5.6 G/DL (6.4-8.2)
[2022-02-01] MEDS: cefTRIAXone 1,000 MG in SODIUM CHLORIDE 0.9% 100 ML IV SCH (05:20)
[2022-02-01] MEDS: PANTOPRAZOLE INJ 200 MG in SODIUM CHLORIDE 0.9% 250 ML IV SCH (05:22)
[2022-02-01] MEDS: SPIRONOLACTONE 25 MG TABLET PO SCH (09:09)
[2022-02-01] MEDS: SACUBITRIL/VALSARTAN 49-51 MG TABLET PO SCH ×2 (09:09→21:56)
[2022-02-01] MEDS: FUROSEMIDE 40 MG TABLET PO SCH (09:10)
[2022-02-01] MEDS: METOPROLOL TARTRATE 50 MG TABLET PO SCH ×2 (09:10→21:56)
[2022-02-01] MEDS ORDERED: POTASSIUM CHLORIDE RIDER 10 MEQ/100 ML PREMIX IV PRN (09:22)
[2022-02-01] MEDS: ERYTHROMYCIN INJ 250 MG in SODIUM CHLORIDE 0.9% 100 ML IV SCH ×3 (10:35→21:56)
[2022-02-01] MEDS: ARIPiprazole 2 MG TABLET PO SCH (10:55)
[2022-02-01] MEDS: ROSUVASTATIN 20 MG TABLET PO SCH (10:56)
[2022-02-01] MEDS: ENOXAPARIN 40 MG/0.4 ML SYRINGE SUBCUT SCH (11:03)
[2022-02-01] MEDS: POTASSIUM CHLORIDE 20 MEQ TABLET PO SCH ×2 (11:08→21:56)
[2022-02-01] MEDS: POTASSIUM CHLORIDE 20 MEQ TABLET PO PRN (15:20)
[2022-02-01] MEDS: SODIUM CHLORIDE 0.9% 1,000 ML IV SCH (15:21)
[2022-02-01] MEDS: PANTOPRAZOLE 40 MG VIAL IV SCH (21:57)
[2022-02-01] MEDS: ACETAMINOPHEN 325 MG TABLET PO PRN (22:01)
[2022-02-02] MEDS: ERYTHROMYCIN INJ 250 MG in SODIUM CHLORIDE 0.9% 100 ML IV SCH ×4 (03:11→20:39)
[2022-02-02 04:39] LABS: Basophils % 0.7 % (0.0-0.8); Eosinophils # 0.1 10*3/uL (0.0-0.87); Eosinophils % 3.1 % (0.00-10.9); Hematocrit 38.3 VOL% (35.7-47.0); Hemoglobin 11.8 GM/DL (12.0-16.0); Immature Granulocytes % 0.2 %; Immature Granulocytes Absolute 0.01 #; Lymphocytes # 1.4 10*3/uL (1.4-4.0); Lymphocytes % 33.4 % (21.3-54.2); Mean Corpuscular HGB Conc 30.8 GM/DL (32-36); Mean Corpuscular Volume 80.8 FL (87-102); Monocytes # 0.3 10*3/uL (0.11-0.8); Monocytes % 8.1 % (1.7-12.7); Neutrophils % 54.5 % (38.7-73.9); Platelet Count 171 T/CUMM (130-400); Red Blood Count 4.74 MC/CUMM (3.8-5.5); Red Cell Distribution Width 18.2 % (9.3-17.3); White Blood Count 4.2 T/CUMM (4-12)
[2022-02-02 04:49] LABS: Calcium 8.2 MG/DL (8.5-10.1); Osmolality,Calculated 278.1 MOS/KG (273-304); Potassium 2.8 MMOL/L (3.5-5.1)
[2022-02-02 04:50] LABS: INR 1.3; PT Patient Result 14.5 SECS (10.1-12.1)
[2022-02-02] MEDS: cefTRIAXone 1,000 MG in SODIUM CHLORIDE 0.9% 100 ML IV SCH (05:20)
[2022-02-02 05:26] LABS: Hypochromia Slight; Microcytosis 1+; Ovalocytes Few
[2022-02-02] MEDS ORDERED: PROMETHAZINE INJ 25 MG in SODIUM CHLORIDE 0.9% 50 ML IV PRN (06:17)
[2022-02-02] MEDS: DEXT 5% LACT RING KCL 20 MEQ 20 MEQ/1,000 ML BAG IV SCH ×3 (08:17→22:33)
[2022-02-02] MEDS ORDERED: MAGNESIUM SULF RIDER 2 GM/50 ML PREMIX IV ONE ×2 (08:54→10:01)
[2022-02-02] MEDS: PANTOPRAZOLE 40 MG VIAL IV SCH ×2 (09:26→22:33)
[2022-02-02] MEDS: ROSUVASTATIN 20 MG TABLET PO SCH (09:26)
[2022-02-02] MEDS: METOPROLOL TARTRATE 50 MG TABLET PO SCH ×2 (09:26→20:40)
[2022-02-02] MEDS: SPIRONOLACTONE 100 MG TABLET PO SCH (09:26)
[2022-02-02] MEDS: SACUBITRIL/VALSARTAN 49-51 MG TABLET PO SCH ×2 (09:27→20:40)
[2022-02-02] MEDS: FUROSEMIDE 20 MG TABLET PO SCH (09:27)
[2022-02-02] MEDS: POTASSIUM BICARB EFFERVESCENT 20 MEQ TAB.EFF PO SCH ×2 (09:27→20:40)
[2022-02-02] MEDS: ARIPiprazole 2 MG TABLET PO SCH (09:27)
[2022-02-02] MEDS: ENOXAPARIN 40 MG/0.4 ML SYRINGE SUBCUT SCH (12:05)
[2022-02-03] MEDS: ERYTHROMYCIN INJ 250 MG in SODIUM CHLORIDE 0.9% 100 ML IV SCH ×4 (02:59→20:34)
[2022-02-03 05:21] LABS: PT Patient Result 21.4 SECS (10.1-12.1)
[2022-02-03] MEDS: cefTRIAXone 1,000 MG in SODIUM CHLORIDE 0.9% 100 ML IV SCH (06:06)
[2022-02-03] MEDS ORDERED: SODIUM CHLORIDE 0.9% 1,000 ML IV PRN (07:05)
[2022-02-03 09:04] LABS: Basophils % 0.3 % (0.0-0.8); Eosinophils # 0.1 10*3/uL (0.0-0.87); Eosinophils % 1.6 % (0.00-10.9); Hematocrit 39.6 VOL% (35.7-47.0); Hemoglobin 12.9 GM/DL (12.0-16.0); Immature Granulocytes % 0.2 %; Immature Granulocytes Absolute 0.01 #; Lymphocytes # 1.2 10*3/uL (1.4-4.0); Lymphocytes % 20.5 % (21.3-54.2); Mean Corpuscular HGB Conc 32.6 GM/DL (32-36); Mean Corpuscular Volume 76.2 FL (87-102); Monocytes # 0.5 10*3/uL (0.11-0.8); Monocytes % 7.8 % (1.7-12.7); Neutrophils % 69.6 % (38.7-73.9); Platelet Count 208 T/CUMM (130-400); Red Cell Distribution Width 18.4 % (9.3-17.3); White Blood Count 5.8 T/CUMM (4-12)
[2022-02-03 09:22] LABS: Calcium 8.7 MG/DL (8.5-10.1); Osmolality,Calculated 277.3 MOS/KG (273-304); Potassium 3.2 MMOL/L (3.5-5.1)
[2022-02-03] MEDS: SPIRONOLACTONE 100 MG TABLET PO SCH (09:33)
[2022-02-03] MEDS: ARIPiprazole 2 MG TABLET PO SCH (09:33)
[2022-02-03] MEDS: ROSUVASTATIN 20 MG TABLET PO SCH (09:33)
[2022-02-03] MEDS: POTASSIUM BICARB EFFERVESCENT 20 MEQ TAB.EFF PO SCH ×2 (09:34→20:34)
[2022-02-03] MEDS: PANTOPRAZOLE 40 MG VIAL IV SCH ×2 (09:34→21:25)
[2022-02-03] MEDS: METOPROLOL TARTRATE 50 MG TABLET PO SCH ×2 (09:34→20:34)
[2022-02-03] MEDS: FUROSEMIDE 20 MG TABLET PO SCH (09:34)
[2022-02-03] MEDS: SACUBITRIL/VALSARTAN 49-51 MG TABLET PO SCH ×2 (09:34→20:33)
[2022-02-03] MEDS: DEXT 5% LACT RING KCL 20 MEQ 20 MEQ/1,000 ML BAG IV SCH ×3 (11:29→23:49)
[2022-02-03] MEDS ORDERED: ENOXAPARIN 80 MG/0.8 ML SYRINGE SUBCUT ONE (16:58)
[2022-02-04] MEDS: DEXT 5% LACT RING KCL 20 MEQ 20 MEQ/1,000 ML BAG IV SCH ×4 (00:57→21:57)
[2022-02-04] MEDS: ERYTHROMYCIN INJ 250 MG in SODIUM CHLORIDE 0.9% 100 ML IV SCH ×4 (02:06→22:04)
[2022-02-04] MEDS: cefTRIAXone 1,000 MG in SODIUM CHLORIDE 0.9% 100 ML IV SCH (05:47)
[2022-02-04 06:02] LABS: Basophils % 0.7 % (0.0-0.8); Eosinophils # 0.2 10*3/uL (0.0-0.87); Eosinophils % 4.4 % (0.00-10.9); Hematocrit 36.5 VOL% (35.7-47.0); Hemoglobin 11.9 GM/DL (12.0-16.0); Immature Granulocytes % 0.2 %; Immature Granulocytes Absolute 0.01 #; Lymphocytes # 1.7 10*3/uL (1.4-4.0); Lymphocytes % 40.5 % (21.3-54.2); Mean Corpuscular HGB Conc 32.6 GM/DL (32-36); Mean Corpuscular Volume 77.3 FL (87-102); Monocytes # 0.4 10*3/uL (0.11-0.8); Monocytes % 8.6 % (1.7-12.7); Neutrophils % 45.6 % (38.7-73.9); Platelet Count 184 T/CUMM (130-400); Red Blood Count 4.72 MC/CUMM (3.8-5.5); Red Cell Distribution Width 18.3 % (9.3-17.3); White Blood Count 4.1 T/CUMM (4-12)
[2022-02-04 06:06] LABS: INR 1.2; PT Patient Result 13.1 SECS (10.1-12.1)
[2022-02-04 06:24] LABS: Albumin 2.8 G/DL (3.4-5.0); Bilirubin,Total 0.6 MG/DL (0.20-1.00); Calcium 8.9 MG/DL (8.5-10.1); Osmolality,Calculated 281.8 MOS/KG (273-304); Potassium 2.7 MMOL/L (3.5-5.1); Total Protein 5.4 G/DL (6.4-8.2)
[2022-02-04] MEDS: POTASSIUM CHLORIDE RIDER 10 MEQ/100 ML PREMIX IV SCH ×4 (07:30→12:52)
[2022-02-04] MEDS ORDERED: MAGNESIUM SULF RIDER 4 GM/100 ML PREMIX IV PRN (07:51)
[2022-02-04] MEDS: PANTOPRAZOLE 40 MG VIAL IV SCH ×2 (10:23→21:57)
[2022-02-04] MEDS: POTASSIUM CHLORIDE 20 MEQ TABLET PO PRN (10:24)
[2022-02-04] MEDS: MAGNESIUM SULF RIDER 2 GM/50 ML PREMIX IV PRN (11:16)
[2022-02-04 11:31] LABS: Calcium 8.9 MG/DL (8.5-10.1); Potassium 3.3 MMOL/L (3.5-5.1)
[2022-02-04] MEDS: LACTATED RINGERS 1,000 ML IV SCH (12:15)
[2022-02-04] MEDS ORDERED: LIDOCAINE 2% 5 ML VIAL ONE (12:24)
[2022-02-04] MEDS ORDERED: propofoL 200 MG/20 ML VIAL IV ONE (12:24)
[2022-02-04] MEDS ORDERED: ETOMIDATE 20 MG/10 ML VIAL IV ONE (12:24)
[2022-02-04] MEDS: ONDANSETRON 4 MG/2 ML VIAL IV PRN ×2 (13:42→16:26)
[2022-02-04] MEDS: SPIRONOLACTONE 100 MG TABLET PO SCH (15:00)
[2022-02-04] MEDS: ARIPiprazole 2 MG TABLET PO SCH (15:01)
[2022-02-04] MEDS: METOPROLOL TARTRATE 50 MG TABLET PO SCH ×2 (15:01→21:58)
[2022-02-04] MEDS: FUROSEMIDE 20 MG TABLET PO SCH (15:01)
[2022-02-04] MEDS: POTASSIUM BICARB EFFERVESCENT 20 MEQ TAB.EFF PO SCH ×2 (15:01→21:58)
[2022-02-04] MEDS: SACUBITRIL/VALSARTAN 49-51 MG TABLET PO SCH ×2 (15:01→21:58)
[2022-02-04] MEDS: ROSUVASTATIN 20 MG TABLET PO SCH (15:01)
[2022-02-04] MEDS: WARFARIN 5 MG TABLET PO SCH (17:37)
[2022-02-05] MEDS: ERYTHROMYCIN INJ 250 MG in SODIUM CHLORIDE 0.9% 100 ML IV SCH ×4 (03:22→22:06)
[2022-02-05] MEDS: DEXT 5% LACT RING KCL 20 MEQ 20 MEQ/1,000 ML BAG IV SCH ×2 (03:22→15:52)
[2022-02-05 04:57] LABS: Basophils % 0.3 % (0.0-0.8); Eosinophils # 0.1 10*3/uL (0.0-0.87); Eosinophils % 2.1 % (0.00-10.9); Hematocrit 37.4 VOL% (35.7-47.0); Hemoglobin 11.9 GM/DL (12.0-16.0); Immature Granulocytes % 0.3 %; Immature Granulocytes Absolute 0.02 #; Lymphocytes # 1.5 10*3/uL (1.4-4.0); Lymphocytes % 22.2 % (21.3-54.2); Mean Corpuscular HGB Conc 31.8 GM/DL (32-36); Mean Corpuscular Volume 78.2 FL (87-102); Mean Platelet Volume 12.5 FL (9.6-12.0); Monocytes # 0.5 10*3/uL (0.11-0.8); Monocytes % 7.1 % (1.7-12.7); Platelet Count 197 T/CUMM (130-400); Red Blood Count 4.78 MC/CUMM (3.8-5.5); Red Cell Distribution Width 18.7 % (9.3-17.3); White Blood Count 6.8 T/CUMM (4-12)
[2022-02-05 05:06] LABS: INR 1.2; PT Patient Result 12.7 SECS (10.1-12.1)
[2022-02-05 05:19] LABS: Calcium 8.9 MG/DL (8.5-10.1); Osmolality,Calculated 278.1 MOS/KG (273-304); Potassium 3.5 MMOL/L (3.5-5.1)
[2022-02-05 05:24] LABS: Albumin 2.9 G/DL (3.4-5.0); Bilirubin,Total 0.8 MG/DL (0.20-1.00); Calcium 8.8 MG/DL (8.5-10.1); Potassium 3.6 MMOL/L (3.5-5.1); Total Protein 5.8 G/DL (6.4-8.2)
[2022-02-05 05:35] LABS: Hypochromia Slight; Microcytosis 1+; Ovalocytes Few
[2022-02-05 05:36] LABS: Platelet Estimate Adequate
[2022-02-05] MEDS: ACETAMINOPHEN 325 MG TABLET PO PRN ×2 (05:55→22:11)
[2022-02-05] MEDS: cefTRIAXone 1,000 MG in SODIUM CHLORIDE 0.9% 100 ML IV SCH (06:00)
[2022-02-05] MEDS: PANTOPRAZOLE 40 MG VIAL IV SCH ×2 (09:29→22:06)
[2022-02-05] MEDS: ARIPiprazole 2 MG TABLET PO SCH (09:29)
[2022-02-05] MEDS: SACUBITRIL/VALSARTAN 49-51 MG TABLET PO SCH (09:29)
[2022-02-05] MEDS: FUROSEMIDE 20 MG TABLET PO SCH (09:30)
[2022-02-05] MEDS: POTASSIUM BICARB EFFERVESCENT 20 MEQ TAB.EFF PO SCH ×3 (09:30→22:08)
[2022-02-05] MEDS: ROSUVASTATIN 20 MG TABLET PO SCH (09:30)
[2022-02-05] MEDS: METOPROLOL TARTRATE 50 MG TABLET PO SCH (09:30)
[2022-02-05] MEDS: SPIRONOLACTONE 100 MG TABLET PO SCH (09:30)
[2022-02-05] MEDS: ENOXAPARIN 80 MG/0.8 ML SYRINGE SUBCUT SCH ×2 (09:30→22:07)
[2022-02-05] MEDS ORDERED: MAGNESIUM SULF RIDER 2 GM/50 ML PREMIX IV ONE (13:14)
[2022-02-05] MEDS ORDERED: POTASSIUM CHLORIDE 20 MEQ TABLET PO ONE (13:14)
[2022-02-05] MEDS: LACTATED RINGERS 1,000 ML IV SCH (14:47)
[2022-02-05] MEDS: WARFARIN 5 MG TABLET PO SCH (17:44)
[2022-02-06] MEDS: ERYTHROMYCIN INJ 250 MG in SODIUM CHLORIDE 0.9% 100 ML IV SCH ×4 (03:45→22:40)
[2022-02-06 05:49] LABS: Basophils % 0.4 % (0.0-0.8); Eosinophils # 0.1 10*3/uL (0.0-0.87); Eosinophils % 2.8 % (0.00-10.9); Hematocrit 35.3 VOL% (35.7-47.0); Immature Granulocytes % 0.2 %; Immature Granulocytes Absolute 0.01 #; Lymphocytes # 1.2 10*3/uL (1.4-4.0); Lymphocytes % 26.3 % (21.3-54.2); Mean Corpuscular HGB Conc 31.2 GM/DL (32-36); Mean Corpuscular Volume 79.5 FL (87-102); Mean Platelet Volume 11.7 FL (9.6-12.0); Monocytes # 0.4 10*3/uL (0.11-0.8); Monocytes % 8.6 % (1.7-12.7); Neutrophils % 61.7 % (38.7-73.9); Platelet Count 164 T/CUMM (130-400); Red Blood Count 4.44 MC/CUMM (3.8-5.5); Red Cell Distribution Width 18.8 % (9.3-17.3); White Blood Count 4.6 T/CUMM (4-12)
[2022-02-06 05:57] LABS: INR 1.3; PT Patient Result 14.6 SECS (10.1-12.1)
[2022-02-06] MEDS: cefTRIAXone 1,000 MG in SODIUM CHLORIDE 0.9% 100 ML IV SCH (06:07)
[2022-02-06 06:24] LABS: Albumin 2.6 G/DL (3.4-5.0); Bilirubin,Total 0.5 MG/DL (0.20-1.00); Calcium 8.5 MG/DL (8.5-10.1); Osmolality,Calculated 277.3 MOS/KG (273-304); Total Protein 4.9 G/DL (6.4-8.2)
[2022-02-06 06:57] LABS: Calcium 8.8 MG/DL (8.5-10.1); Osmolality,Calculated 277.3 MOS/KG (273-304)
[2022-02-06] MEDS: ENOXAPARIN 80 MG/0.8 ML SYRINGE SUBCUT SCH ×2 (09:05→22:41)
[2022-02-06] MEDS: ROSUVASTATIN 20 MG TABLET PO SCH (09:06)
[2022-02-06] MEDS: PANTOPRAZOLE 40 MG VIAL IV SCH ×2 (09:06→22:41)
[2022-02-06] MEDS: FUROSEMIDE 20 MG TABLET PO SCH (09:06)
[2022-02-06] MEDS: ARIPiprazole 2 MG TABLET PO SCH (09:06)
[2022-02-06] MEDS: SPIRONOLACTONE 100 MG TABLET PO SCH (09:06)
[2022-02-06] MEDS: POTASSIUM BICARB EFFERVESCENT 20 MEQ TAB.EFF PO SCH ×2 (10:14→22:40)
[2022-02-06] MEDS: ACETAMINOPHEN 325 MG TABLET PO PRN ×2 (10:42→22:53)
[2022-02-06] MEDS: DEXT 5% LACT RING KCL 20 MEQ 20 MEQ/1,000 ML BAG IV SCH ×2 (13:14→13:18)
[2022-02-06] MEDS: LACTATED RINGERS 1,000 ML IV SCH (13:19)
[2022-02-06] MEDS: WARFARIN 5 MG TABLET PO SCH (17:34)
[2022-02-07] MEDS: ERYTHROMYCIN INJ 250 MG in SODIUM CHLORIDE 0.9% 100 ML IV SCH ×4 (04:49→22:20)
[2022-02-07 06:21] LABS: INR 1.4; PT Patient Result 15.1 SECS (10.1-12.1)
[2022-02-07 06:40] LABS: Calcium 8.8 MG/DL (8.5-10.1); Potassium 4.4 MMOL/L (3.5-5.1)
[2022-02-07 06:43] LABS: Albumin 2.5 G/DL (3.4-5.0); Bilirubin,Total 0.4 MG/DL (0.20-1.00); Calcium 8.7 MG/DL (8.5-10.1); Osmolality,Calculated 275.4 MOS/KG (273-304); Potassium 4.5 MMOL/L (3.5-5.1); Total Protein 4.7 G/DL (6.4-8.2)
[2022-02-07] MEDS: DEXT 5% LACT RING KCL 20 MEQ 20 MEQ/1,000 ML BAG IV SCH ×3 (08:16→17:01)
[2022-02-07] MEDS: MAGNESIUM SULF RIDER 2 GM/50 ML PREMIX IV PRN (08:17)
[2022-02-07] MEDS: SPIRONOLACTONE 100 MG TABLET PO SCH (08:18)
[2022-02-07] MEDS: FUROSEMIDE 20 MG TABLET PO SCH (08:18)
[2022-02-07] MEDS: ENOXAPARIN 80 MG/0.8 ML SYRINGE SUBCUT SCH ×2 (08:19→20:46)
[2022-02-07] MEDS: POTASSIUM BICARB EFFERVESCENT 20 MEQ TAB.EFF PO SCH ×2 (08:19→21:12)
[2022-02-07] MEDS: ROSUVASTATIN 20 MG TABLET PO SCH (08:19)
[2022-02-07] MEDS: ARIPiprazole 2 MG TABLET PO SCH (08:19)
[2022-02-07] MEDS: PANTOPRAZOLE 40 MG VIAL IV SCH ×2 (08:20→20:46)
[2022-02-07] MEDS: LACTATED RINGERS 1,000 ML IV SCH (13:07)
[2022-02-07] MEDS: WARFARIN 5 MG TABLET PO SCH (17:02)
[2022-02-07] MEDS: LIDOCAINE 5% PATCH TRANSDERM SCH (20:46)
[2022-02-08] MEDS: DEXT 5% LACT RING KCL 20 MEQ 20 MEQ/1,000 ML BAG IV SCH ×3 (01:00→12:34)
[2022-02-08] MEDS: ERYTHROMYCIN INJ 250 MG in SODIUM CHLORIDE 0.9% 100 ML IV SCH ×4 (03:16→21:17)
[2022-02-08 04:34] LABS: INR 1.5; PT Patient Result 15.9 SECS (10.1-12.1)
[2022-02-08 04:47] LABS: Osmolality,Calculated 273.5 MOS/KG (273-304); Potassium 4.3 MMOL/L (3.5-5.1)
[2022-02-08 04:50] LABS: Albumin 2.7 G/DL (3.4-5.0); Bilirubin,Total 0.4 MG/DL (0.20-1.00); Calcium 8.9 MG/DL (8.5-10.1); Osmolality,Calculated 271.7 MOS/KG (273-304); Potassium 4.4 MMOL/L (3.5-5.1); Total Protein 5.4 G/DL (6.4-8.2)
[2022-02-08] MEDS ORDERED: ERYTHROMYCIN BASE 250 MG TABLET PO SCH (07:30)
[2022-02-08] MEDS ORDERED: WARFARIN 2 MG TABLET PO ONE (08:02)
[2022-02-08] MEDS: POTASSIUM BICARB EFFERVESCENT 20 MEQ TAB.EFF PO SCH ×2 (10:04→21:18)
[2022-02-08] MEDS: ENOXAPARIN 80 MG/0.8 ML SYRINGE SUBCUT SCH ×2 (10:04→21:18)
[2022-02-08] MEDS: SPIRONOLACTONE 100 MG TABLET PO SCH (10:04)
[2022-02-08] MEDS: ROSUVASTATIN 20 MG TABLET PO SCH (10:04)
[2022-02-08] MEDS: ARIPiprazole 2 MG TABLET PO SCH (10:06)
[2022-02-08] MEDS: PANTOPRAZOLE 40 MG VIAL IV SCH (10:06)
[2022-02-08] MEDS: FUROSEMIDE 20 MG TABLET PO SCH (10:10)
[2022-02-08] MEDS: ACETAMINOPHEN 325 MG TABLET PO PRN (12:36)
[2022-02-08] MEDS: WARFARIN 3 MG TABLET PO SCH (17:35)
[2022-02-08] MEDS: LIDOCAINE 5% PATCH TRANSDERM SCH (21:18)
[2022-02-09] MEDS: PANTOPRAZOLE 40 MG VIAL IV SCH ×3 (00:38→20:49)
[2022-02-09] MEDS: ERYTHROMYCIN INJ 250 MG in SODIUM CHLORIDE 0.9% 100 ML IV SCH ×2 (03:17→09:30)
[2022-02-09 04:44] LABS: Basophils % 0.5 % (0.0-0.8); Eosinophils # 0.1 10*3/uL (0.0-0.87); Eosinophils % 2.1 % (0.00-10.9); Hematocrit 38.4 VOL% (35.7-47.0); Hemoglobin 12.2 GM/DL (12.0-16.0); Immature Granulocytes % 0.3 %; Immature Granulocytes Absolute 0.02 #; Lymphocytes # 1.5 10*3/uL (1.4-4.0); Lymphocytes % 21.9 % (21.3-54.2); Mean Corpuscular HGB Conc 31.8 GM/DL (32-36); Mean Platelet Volume 11.8 FL (9.6-12.0); Monocytes # 0.4 10*3/uL (0.11-0.8); Monocytes % 6.2 % (1.7-12.7); Platelet Count 222 T/CUMM (130-400); Red Cell Distribution Width 19.3 % (9.3-17.3); White Blood Count 6.7 T/CUMM (4-12)
[2022-02-09 05:03] LABS: PT Patient Result 21.3 SECS (10.1-12.1)
[2022-02-09 05:05] LABS: Calcium 9.6 MG/DL (8.5-10.1); Osmolality,Calculated 271.8 MOS/KG (273-304); Potassium 4.4 MMOL/L (3.5-5.1)
[2022-02-09 05:08] LABS: Bilirubin,Total 0.4 MG/DL (0.20-1.00); Calcium 9.2 MG/DL (8.5-10.1); Osmolality,Calculated 275.5 MOS/KG (273-304); Potassium 4.5 MMOL/L (3.5-5.1); Total Protein 6.2 G/DL (6.4-8.2)
[2022-02-09] MEDS: ROSUVASTATIN 20 MG TABLET PO SCH (09:15)
[2022-02-09] MEDS: POTASSIUM BICARB EFFERVESCENT 20 MEQ TAB.EFF PO SCH ×2 (09:15→21:16)
[2022-02-09] MEDS: SPIRONOLACTONE 100 MG TABLET PO SCH (09:15)
[2022-02-09] MEDS: ARIPiprazole 2 MG TABLET PO SCH (09:15)
[2022-02-09] MEDS: ENOXAPARIN 80 MG/0.8 ML SYRINGE SUBCUT SCH (09:24)
[2022-02-09] MEDS: ONDANSETRON 4 MG/2 ML VIAL IV PRN (12:16)
[2022-02-09] MEDS: WARFARIN 3 MG TABLET PO SCH (18:18)
[2022-02-09] MEDS: ERYTHROMYCIN BASE 250 MG TABLET PO SCH (21:16)
[2022-02-09] MEDS: LIDOCAINE 5% PATCH TRANSDERM SCH (21:16)
[2022-02-10 04:53] LABS: Basophils % 0.3 % (0.0-0.8); Eosinophils # 0.1 10*3/uL (0.0-0.87); Eosinophils % 1.8 % (0.00-10.9); Hematocrit 37.2 VOL% (35.7-47.0); Hemoglobin 11.7 GM/DL (12.0-16.0); Immature Granulocytes % 0.2 %; Immature Granulocytes Absolute 0.01 #; Lymphocytes # 1.4 10*3/uL (1.4-4.0); Lymphocytes % 22.9 % (21.3-54.2); Mean Corpuscular HGB Conc 31.5 GM/DL (32-36); Mean Platelet Volume 11.3 FL (9.6-12.0); Monocytes # 0.4 10*3/uL (0.11-0.8); Monocytes % 6.7 % (1.7-12.7); Neutrophils % 68.1 % (38.7-73.9); Platelet Count 248 T/CUMM (130-400); Red Blood Count 4.65 MC/CUMM (3.8-5.5); Red Cell Distribution Width 19.2 % (9.3-17.3); White Blood Count 6.1 T/CUMM (4-12)
[2022-02-10 05:05] LABS: INR 2.1; PT Patient Result 22.5 SECS (10.1-12.1)
[2022-02-10 05:19] LABS: Calcium 9.8 MG/DL (8.5-10.1); Osmolality,Calculated 274.8 MOS/KG (273-304); Potassium 4.8 MMOL/L (3.5-5.1)
[2022-02-10] MEDS: SPIRONOLACTONE 100 MG TABLET PO SCH (08:46)
[2022-02-10] MEDS: ERYTHROMYCIN BASE 250 MG TABLET PO SCH (08:47)
[2022-02-10] MEDS: POTASSIUM BICARB EFFERVESCENT 20 MEQ TAB.EFF PO SCH (08:47)
[2022-02-10] MEDS: ARIPiprazole 2 MG TABLET PO SCH (08:47)
[2022-02-10] MEDS: ROSUVASTATIN 20 MG TABLET PO SCH (08:47)
[2022-02-10] MEDS: PANTOPRAZOLE 40 MG VIAL IV SCH (08:48)
[2022-02-10 15:40] VITALS: BP 113/75
== END 2022-02-10 16:05 | disposition home health service (06) | DRG 254 ==
LOC: N.ED 02:04 → N.EDINP 05:09 → N.TELEN 01-31 00:10
PROVIDERS: ADMIT Family Medicine; ATTEND Family Medicine
PROC: EGDWPEG (ICD-10-PCS; 2022-02-04 07:20)

== ENCOUNTER 2022-04-11 15:57 | Inpatient (IN) ==
[2022-04-11 16:48] LABS: Calcium 8.5 MG/DL (8.5-10.1); Osmolality,Calculated 281.3 MOS/KG (273-304); Potassium 2.8 MMOL/L (3.5-5.1); Total Protein 7.5 G/DL (6.4-8.2)
[2022-04-11 16:54] LABS: Basophils % 0.4 % (0.0-0.8); Eosinophils # 0.2 10*3/uL (0.0-0.87); Eosinophils % 1.8 % (0.00-10.9); Hematocrit 40.9 VOL% (35.7-47.0); Hemoglobin 12.2 GM/DL (12.0-16.0); Immature Granulocytes % 0.2 %; Immature Granulocytes Absolute 0.02 #; Lymphocytes # 1.7 10*3/uL (1.4-4.0); Lymphocytes % 18.8 % (21.3-54.2); Mean Corpuscular HGB Conc 29.8 GM/DL (32-36); Mean Corpuscular Volume 74.9 FL (87-102); Mean Platelet Volume 12.1 FL (9.6-12.0); Monocytes # 0.5 10*3/uL (0.11-0.8); Monocytes % 5.7 % (1.7-12.7); Neutrophils % 73.1 % (38.7-73.9); Platelet Count 420 T/CUMM (130-400); Red Blood Count 5.46 MC/CUMM (3.8-5.5); Red Cell Distribution Width 16.6 % (9.3-17.3); White Blood Count 9.1 T/CUMM (4-12)
[2022-04-11] MEDS ORDERED: POTASSIUM CHLORIDE 20 MEQ TABLET PO STA (17:43)
[2022-04-11] MEDS ORDERED: FUROSEMIDE 40 MG/4 ML VIAL IV STA (18:06)
[2022-04-11] MEDS ORDERED: ACETAMINOPHEN 325 MG TABLET PO PRN (18:43)
[2022-04-11] MEDS ORDERED: ONDANSETRON 4 MG/2 ML VIAL IV PRN (18:43)
[2022-04-11] MEDS ORDERED: GLUCAGON 1 MG VIAL IM PRN (18:43)
[2022-04-11] MEDS ORDERED: DEXTROSE 10% 250 ML BAG IV PRN (18:49)
[2022-04-11] MEDS: POTASSIUM CHLORIDE 20 MEQ TABLET PO SCH (21:52)
[2022-04-11] MEDS: DOCUSATE SODIUM 100 MG CAPSULE PO SCH (21:52)
[2022-04-11] MEDS: FUROSEMIDE 40 MG/4 ML VIAL IV SCH (21:53)
[2022-04-11] MEDS: INSULIN REGULAR 100 UNIT/ML SUBCUT SCH (21:53)
[2022-04-12 07:50] LABS: Basophils % 0.3 % (0.0-0.8); Eosinophils # 0.2 10*3/uL (0.0-0.87); Eosinophils % 1.7 % (0.00-10.9); Hematocrit 40.6 VOL% (35.7-47.0); Hemoglobin 12.2 GM/DL (12.0-16.0); Immature Granulocytes % 0.2 %; Immature Granulocytes Absolute 0.02 #; Lymphocytes # 1.5 10*3/uL (1.4-4.0); Lymphocytes % 17.1 % (21.3-54.2); Mean Corpuscular Volume 76.2 FL (87-102); Mean Platelet Volume 11.6 FL (9.6-12.0); Monocytes # 0.6 10*3/uL (0.11-0.8); Monocytes % 6.9 % (1.7-12.7); Neutrophils % 73.8 % (38.7-73.9); Platelet Count 400 T/CUMM (130-400); Red Blood Count 5.33 MC/CUMM (3.8-5.5); Red Cell Distribution Width 16.9 % (9.3-17.3); White Blood Count 8.7 T/CUMM (4-12)
[2022-04-12 07:57] LABS: Calcium 8.8 MG/DL (8.5-10.1); Osmolality,Calculated 281.3 MOS/KG (273-304)
[2022-04-12] MEDS ORDERED: PANTOPRAZOLE 40 MG TABLET PO SCH (09:00)
[2022-04-12] MEDS: INSULIN REGULAR 100 UNIT/ML SUBCUT SCH ×4 (09:22→22:07)
[2022-04-12] MEDS: POTASSIUM CHLORIDE 20 MEQ TABLET PO SCH ×3 (09:22→22:07)
[2022-04-12] MEDS: DOCUSATE SODIUM 100 MG CAPSULE PO SCH ×2 (09:22→22:07)
[2022-04-12] MEDS: FUROSEMIDE 40 MG/4 ML VIAL IV SCH ×2 (09:38→16:04)
[2022-04-12 10:33] LABS: INR 2.8; PT Patient Result 29.2 SECS (10.1-12.1)
[2022-04-12] MEDS ORDERED: MAGNESIUM SULF RIDER 4 GM/100 ML PREMIX IV ONE (11:19)
[2022-04-12] MEDS ORDERED: POTASSIUM CHLORIDE RIDER 10 MEQ/100 ML PREMIX IV PRN (14:42)
[2022-04-12] MEDS ORDERED: MAGNESIUM SULF RIDER 4 GM/100 ML PREMIX IV PRN (14:42)
[2022-04-12] MEDS ORDERED: MAGNESIUM SULF RIDER 2 GM/50 ML PREMIX IV PRN (14:42)
[2022-04-12] MEDS ORDERED: POTASSIUM CHLORIDE 20 MEQ TABLET PO PRN (14:42)
[2022-04-12] MEDS: WARFARIN 5 MG TABLET PO SCH (17:17)
[2022-04-12] MEDS: PANTOPRAZOLE 40 MG TABLET PO SCH (22:07)
[2022-04-12] MEDS: METOPROLOL TARTRATE 50 MG TABLET PO SCH (22:07)
[2022-04-12] MEDS: ROSUVASTATIN 20 MG TABLET PO SCH (22:07)
[2022-04-12] MEDS: SACUBITRIL/VALSARTAN 49-51 MG TABLET PO SCH (22:07)
[2022-04-13] MEDS: FUROSEMIDE 40 MG/4 ML VIAL IV SCH ×3 (01:07→16:16)
[2022-04-13 06:22] LABS: INR 2.4; PT Patient Result 24.6 SECS (10.1-12.1)
[2022-04-13 06:56] LABS: Basophils % 0.7 % (0.0-0.8); Eosinophils # 0.2 10*3/uL (0.0-0.87); Eosinophils % 4.1 % (0.00-10.9); Hematocrit 39.7 VOL% (35.7-47.0); Hemoglobin 11.9 GM/DL (12.0-16.0); Immature Granulocytes % 0.2 %; Immature Granulocytes Absolute 0.01 #; Lymphocytes # 1.4 10*3/uL (1.4-4.0); Lymphocytes % 25.5 % (21.3-54.2); Mean Corpuscular Volume 76.5 FL (87-102); Mean Platelet Volume 12.2 FL (9.6-12.0); Monocytes # 0.5 10*3/uL (0.11-0.8); Monocytes % 8.3 % (1.7-12.7); Neutrophils % 61.2 % (38.7-73.9); Platelet Count 403 T/CUMM (130-400); Red Blood Count 5.19 MC/CUMM (3.8-5.5); Red Cell Distribution Width 17.1 % (9.3-17.3); White Blood Count 5.7 T/CUMM (4-12)
[2022-04-13] MEDS: INSULIN REGULAR 100 UNIT/ML SUBCUT SCH ×4 (07:14→21:36)
[2022-04-13] MEDS: METOPROLOL TARTRATE 50 MG TABLET PO SCH ×2 (07:14→21:35)
[2022-04-13] MEDS: SACUBITRIL/VALSARTAN 49-51 MG TABLET PO SCH ×2 (07:14→21:35)
[2022-04-13] MEDS: SPIRONOLACTONE 50 MG TABLET PO SCH (07:14)
[2022-04-13] MEDS: DOCUSATE SODIUM 100 MG CAPSULE PO SCH ×2 (08:26→21:35)
[2022-04-13] MEDS: POTASSIUM CHLORIDE 20 MEQ TABLET PO SCH ×3 (08:26→21:35)
[2022-04-13] MEDS: PANTOPRAZOLE 40 MG TABLET PO SCH ×2 (08:26→21:35)
[2022-04-13] MEDS: WARFARIN 5 MG TABLET PO SCH (08:29)
[2022-04-13 10:28] LABS: Osmolality,Calculated 280.3 MOS/KG (273-304); Potassium 3.2 MMOL/L (3.5-5.1)
[2022-04-13] MEDS: ROSUVASTATIN 20 MG TABLET PO SCH (21:35)
[2022-04-14] MEDS: FUROSEMIDE 40 MG/4 ML VIAL IV SCH ×2 (00:59→08:06)
[2022-04-14 05:19] LABS: Calcium 9.1 MG/DL (8.5-10.1); Osmolality,Calculated 278.5 MOS/KG (273-304); Potassium 3.2 MMOL/L (3.5-5.1)
[2022-04-14] MEDS: SACUBITRIL/VALSARTAN 49-51 MG TABLET PO SCH ×2 (07:31→20:30)
[2022-04-14] MEDS: SPIRONOLACTONE 50 MG TABLET PO SCH (07:31)
[2022-04-14] MEDS: INSULIN REGULAR 100 UNIT/ML SUBCUT SCH ×4 (07:33→20:30)
[2022-04-14] MEDS: METOPROLOL TARTRATE 50 MG TABLET PO SCH ×2 (07:43→20:30)
[2022-04-14] MEDS: WARFARIN 5 MG TABLET PO SCH (08:09)
[2022-04-14] MEDS: DOCUSATE SODIUM 100 MG CAPSULE PO SCH ×2 (08:09→20:30)
[2022-04-14] MEDS: PANTOPRAZOLE 40 MG TABLET PO SCH ×2 (08:10→20:30)
[2022-04-14] MEDS: POTASSIUM CHLORIDE 20 MEQ TABLET PO SCH ×3 (08:10→20:30)
[2022-04-14 13:23] LABS: INR 2.7; PT Patient Result 28.2 SECS (10.1-12.1)
[2022-04-14] MEDS ORDERED: FUROSEMIDE 40 MG/4 ML VIAL IV ONE (20:00)
[2022-04-14] MEDS: ROSUVASTATIN 20 MG TABLET PO SCH (20:30)
[2022-04-15 04:54] LABS: INR 2.8; PT Patient Result 28.9 SECS (10.1-12.1)
[2022-04-15 05:03] LABS: Calcium 9.8 MG/DL (8.5-10.1); Osmolality,Calculated 277.7 MOS/KG (273-304); Potassium 3.7 MMOL/L (3.5-5.1)
[2022-04-15] MEDS: INSULIN REGULAR 100 UNIT/ML SUBCUT SCH ×2 (07:14→11:36)
[2022-04-15] MEDS ORDERED: FUROSEMIDE 40 MG TABLET PO SCH (08:00)
[2022-04-15] MEDS ORDERED: DAPAGLIFLOZIN 10 MG TABLET PO SCH (09:00)
[2022-04-15] MEDS: DOCUSATE SODIUM 100 MG CAPSULE PO SCH (10:14)
[2022-04-15] MEDS: POTASSIUM CHLORIDE 20 MEQ TABLET PO SCH ×2 (10:14→14:03)
[2022-04-15] MEDS: PANTOPRAZOLE 40 MG TABLET PO SCH (10:15)
[2022-04-15] MEDS: WARFARIN 5 MG TABLET PO SCH (10:15)
[2022-04-15] MEDS: SACUBITRIL/VALSARTAN 49-51 MG TABLET PO SCH (10:16)
[2022-04-15] MEDS: SPIRONOLACTONE 50 MG TABLET PO SCH (10:16)
[2022-04-15] MEDS: METOPROLOL TARTRATE 50 MG TABLET PO SCH (10:16)
[2022-04-15 12:11] VITALS: BP 97/66
== END 2022-04-15 15:20 | disposition home health service (06) | DRG 425 ==
LOC: N.ED 15:57 → N.EDINP 15:57 → N.TELES 22:02
PROVIDERS: ADMIT Family Medicine; ATTEND Family Medicine

== ENCOUNTER 2022-05-03 22:02 | Observation (INO) ==
[2022-05-04 07:27] LABS: Bilirubin,Urine Small mg/dL (Negative); Blood, Urine Trace mg/dL (Negative); Glucose,Urine (UA) Negative (Negative); Hyaline Casts,Urine 10 /LPF (0-3); Ketones,Urine Negative (Negative); Mucus,Urine Moderate /LPF (Occasional); Nitrite,Urine Negative (Negative); Protein,Urine 30 mg/dL (Negative); RBC,Urine 7 /HPF (0-4); Squamous Epithelial Cell,Urine Few /HPF (0-10); Urine Appearance Slightly Cloudy (Clear); Urine Color Yellow (Yellow); Urine Specific Gravity 1.025 (1.001-1.035); Urine Urobilinogen 0.2 eU/dL (<2.0); Urine pH 6.5 (4.5-8.0)
[2022-05-04] MEDS ORDERED: ONDANSETRON 4 MG/2 ML VIAL IV STA (07:41)
[2022-05-04] MEDS: SODIUM CHLORIDE 0.9% 1,000 ML IV STA ×2 (07:47→07:48)
[2022-05-04 07:50] LABS: Basophils % 0.4 % (0.0-0.8); Eosinophils % 0.2 % (0.00-10.9); Hematocrit 38.7 VOL% (35.7-47.0); Hemoglobin 11.7 GM/DL (12.0-16.0); Immature Granulocytes % 0.2 %; Immature Granulocytes Absolute 0.01 #; Lymphocytes # 0.9 10*3/uL (1.4-4.0); Lymphocytes % 17.7 % (21.3-54.2); Mean Corpuscular HGB Conc 30.2 GM/DL (32-36); Mean Corpuscular Volume 74.7 FL (87-102); Mean Platelet Volume 12.2 FL (9.6-12.0); Monocytes # 0.4 10*3/uL (0.11-0.8); Monocytes % 7.8 % (1.7-12.7); Neutrophils % 73.7 % (38.7-73.9); Platelet Count 257 T/CUMM (130-400); Red Blood Count 5.18 MC/CUMM (3.8-5.5); White Blood Count 5.1 T/CUMM (4-12)
[2022-05-04 08:11] LABS: Albumin 3.8 G/DL (3.4-5.0); Bilirubin,Total 0.8 MG/DL (0.20-1.00); Calcium 9.2 MG/DL (8.5-10.1); Osmolality,Calculated 257.9 MOS/KG (273-304); Potassium 2.7 MMOL/L (3.5-5.1)
[2022-05-04] MEDS ORDERED: cefTRIAXone 1,000 MG in SODIUM CHLORIDE 0.9% 100 ML IV STA (08:32)
[2022-05-04 10:16] LABS: INR 1.6; PT Patient Result 17.4 SECS (10.1-12.1)
[2022-05-04] MEDS: POTASSIUM CHLORIDE RIDER 10 MEQ/100 ML PREMIX IV SCH ×3 (12:29→16:31)
[2022-05-04] MEDS ORDERED: PROMETHAZINE 25 MG TABLET PO PRN (13:31)
[2022-05-04] MEDS ORDERED: traMADol 50 MG TABLET PO PRN (13:31)
[2022-05-04] MEDS ORDERED: ACETAMINOPHEN 325 MG TABLET PO PRN ×2 (13:31→13:40)
[2022-05-04] MEDS ORDERED: PROMETHAZINE 25 MG/1 ML VIAL IM PRN ×2 (13:31→13:40)
[2022-05-04] MEDS ORDERED: MAGNESIUM SULF RIDER 2 GM/50 ML PREMIX IV PRN (13:31)
[2022-05-04] MEDS ORDERED: MAGNESIUM SULF RIDER 4 GM/100 ML PREMIX IV PRN (13:31)
[2022-05-04] MEDS ORDERED: POTASSIUM CHLORIDE RIDER 10 MEQ/100 ML PREMIX IV PRN (13:33)
[2022-05-04] MEDS ORDERED: DICYCLOMINE 20 MG TABLET PO PRN (13:34)
[2022-05-04] MEDS ORDERED: GLUCAGON 1 MG VIAL IM PRN (13:39)
[2022-05-04] MEDS ORDERED: DEXTROSE 10% 250 ML BAG IV PRN (13:39)
[2022-05-04] MEDS ORDERED: ONDANSETRON 4 MG/2 ML VIAL IV PRN (13:40)
[2022-05-04] MEDS ORDERED: PANTOPRAZOLE 40 MG TABLET PO SCH ×2 (13:40→21:00)
[2022-05-04] MEDS ORDERED: ENOXAPARIN 40 MG/0.4 ML SYRINGE SUBCUT SCH (14:00)
[2022-05-04] MEDS: SODIUM CHLORIDE 0.9% 1,000 ML IV SCH ×2 (15:22→15:45)
[2022-05-04] MEDS: DOCUSATE SODIUM 100 MG CAPSULE PO SCH ×2 (15:33→21:30)
[2022-05-04] MEDS: METOCLOPRAMIDE 10 MG/10 ML UDCUP PO SCH ×2 (15:45→21:30)
[2022-05-04] MEDS: ENOXAPARIN 60 MG/0.6 ML SYRINGE SUBCUT SCH (15:45)
[2022-05-04] MEDS: WARFARIN 5 MG TABLET PO SCH (15:45)
[2022-05-04] MEDS: ONDANSETRON 4 MG/2 ML VIAL IV PRN ×2 (16:05→21:28)
[2022-05-04] MEDS: INSULIN REGULAR 100 UNIT/ML SUBCUT SCH ×2 (16:09→21:25)
[2022-05-04] MEDS ORDERED: DOCUSATE SODIUM 100 MG CAPSULE PO SCH (21:00)
[2022-05-04] MEDS: POTASSIUM CHLORIDE 10 MEQ TABLET PO SCH (21:28)
[2022-05-04] MEDS: POTASSIUM CHLORIDE 20 MEQ TABLET PO PRN (21:29)
[2022-05-04] MEDS: SACUBITRIL/VALSARTAN 49-51 MG TABLET PO SCH (21:29)
[2022-05-04] MEDS: ROSUVASTATIN 20 MG TABLET PO SCH (21:29)
[2022-05-04] MEDS: METOPROLOL TARTRATE 50 MG TABLET PO SCH (21:29)
[2022-05-05] MEDS: SODIUM CHLORIDE 0.9% 1,000 ML IV SCH ×3 (00:38→11:20)
[2022-05-05] MEDS: ENOXAPARIN 60 MG/0.6 ML SYRINGE SUBCUT SCH ×2 (02:59→21:48)
[2022-05-05 05:24] LABS: Basophils % 0.8 % (0.0-0.8); Eosinophils % 0.5 % (0.00-10.9); Hematocrit 34.2 VOL% (35.7-47.0); Hemoglobin 10.4 GM/DL (12.0-16.0); Immature Granulocytes % 0.3 %; Immature Granulocytes Absolute 0.01 #; Lymphocytes # 1.1 10*3/uL (1.4-4.0); Lymphocytes % 30.9 % (21.3-54.2); Mean Corpuscular HGB Conc 30.4 GM/DL (32-36); Mean Corpuscular Volume 75.3 FL (87-102); Monocytes # 0.3 10*3/uL (0.11-0.8); Monocytes % 8.5 % (1.7-12.7); Platelet Count 207 T/CUMM (130-400); Red Blood Count 4.54 MC/CUMM (3.8-5.5); Red Cell Distribution Width 16.9 % (9.3-17.3); White Blood Count 3.7 T/CUMM (4-12)
[2022-05-05 05:46] LABS: Hypochromia Slight; Microcytosis 1+; Ovalocytes Few; Platelet Estimate Normal
[2022-05-05 06:07] LABS: Albumin 3.1 G/DL (3.4-5.0); Bilirubin,Total 0.7 MG/DL (0.20-1.00); Calcium 8.7 MG/DL (8.5-10.1); Osmolality,Calculated 278.3 MOS/KG (273-304); Potassium 3.1 MMOL/L (3.5-5.1); Total Protein 5.8 G/DL (6.4-8.2)
[2022-05-05] MEDS: POTASSIUM CHLORIDE 20 MEQ TABLET PO PRN ×2 (06:35→11:15)
[2022-05-05] MEDS: INSULIN REGULAR 100 UNIT/ML SUBCUT SCH ×4 (08:40→22:34)
[2022-05-05] MEDS ORDERED: NON-FORMULARY MEDICATION (Esomeprazole Magnesium 40 mg capsule,delayed release(DR/EC)) PO SCH (09:00)
[2022-05-05] MEDS ORDERED: cefTRIAXone 1,000 MG in SODIUM CHLORIDE 0.9% 100 ML IV SCH (09:00)
[2022-05-05 09:04] LABS: INR 1.6
[2022-05-05] MEDS: ONDANSETRON 4 MG/2 ML VIAL IV PRN (11:14)
[2022-05-05] MEDS: PANTOPRAZOLE 40 MG VIAL IV SCH ×2 (11:14→21:43)
[2022-05-05] MEDS: DOCUSATE SODIUM 100 MG CAPSULE PO SCH ×2 (11:15→21:50)
[2022-05-05] MEDS: WARFARIN 5 MG TABLET PO SCH (11:15)
[2022-05-05] MEDS: METOPROLOL TARTRATE 50 MG TABLET PO SCH ×3 (11:15→21:50)
[2022-05-05] MEDS: SACUBITRIL/VALSARTAN 49-51 MG TABLET PO SCH ×2 (11:15→21:43)
[2022-05-05] MEDS: POTASSIUM CHLORIDE 10 MEQ TABLET PO SCH ×2 (11:15→21:43)
[2022-05-05] MEDS: ARIPiprazole 2 MG TABLET PO SCH (11:15)
[2022-05-05] MEDS: DAPAGLIFLOZIN 10 MG TABLET PO SCH (11:15)
[2022-05-05] MEDS: SPIRONOLACTONE 50 MG TABLET PO SCH (11:15)
[2022-05-05] MEDS: cefTRIAXone 1,000 MG in SODIUM CHLORIDE 0.9% 100 ML IV SCH (11:16)
[2022-05-05] MEDS: METOCLOPRAMIDE 10 MG/2 ML VIAL IV SCH ×2 (12:47→18:18)
[2022-05-05] MEDS ORDERED: POTASSIUM BICARB EFFERVESCENT 20 MEQ TAB.EFF PO PRN (14:00)
[2022-05-05] MEDS ORDERED: POTASSIUM CHLORIDE INJ 50 MEQ in SODIUM CHLORIDE 0.9% 500 ML IV ONE (15:00)
[2022-05-05] MEDS: ROSUVASTATIN 20 MG TABLET PO SCH (21:43)
[2022-05-06] MEDS: METOCLOPRAMIDE 10 MG/2 ML VIAL IV SCH ×4 (00:25→17:34)
[2022-05-06 04:53] LABS: Basophils % 0.4 % (0.0-0.8); Hematocrit 33.2 VOL% (35.7-47.0); Hemoglobin 9.8 GM/DL (12.0-16.0); Immature Granulocytes % 0.2 %; Immature Granulocytes Absolute 0.01 #; Lymphocytes # 1.4 10*3/uL (1.4-4.0); Lymphocytes % 28.8 % (21.3-54.2); Mean Corpuscular HGB Conc 29.5 GM/DL (32-36); Mean Corpuscular Volume 78.3 FL (87-102); Mean Platelet Volume 12.9 FL (9.6-12.0); Monocytes # 0.3 10*3/uL (0.11-0.8); Monocytes % 7.3 % (1.7-12.7); Neutrophils % 63.3 % (38.7-73.9); Platelet Count 194 T/CUMM (130-400); Red Blood Count 4.24 MC/CUMM (3.8-5.5); Red Cell Distribution Width 17.2 % (9.3-17.3); White Blood Count 4.7 T/CUMM (4-12)
[2022-05-06 05:09] LABS: PT Patient Result 20.7 SECS (10.1-12.1)
[2022-05-06 05:14] LABS: Elliptocytes Few; Hypochromia Slight; Microcytosis 1+; Platelet Estimate Adequate
[2022-05-06 05:20] LABS: Alanine Aminotransferase 12 U/L (13-56); Albumin 3.1 G/DL (3.4-5.0); Alkaline Phosphatase 80 U/L (45-117); Aspartate Amino Transferase 19 U/L (0-37); Bilirubin,Total < 0.39 MG/DL (0.20-1.00); Blood Urea Nitrogen 5 MG/DL (7-18); Calcium 8.6 MG/DL (8.5-10.1); Carbon Dioxide 27 MMOL/L (21-32); Chloride 110 MMOL/L (98-107); Glucose 76 MG/DL (74-106); Osmolality,Calculated 278.1 MOS/KG (273-304); Potassium 3.7 MMOL/L (3.5-5.1); Sodium 142 MMOL/L (136-145); Total Protein 5.7 G/DL (6.4-8.2)
[2022-05-06] MEDS: INSULIN REGULAR 100 UNIT/ML SUBCUT SCH ×4 (08:22→21:46)
[2022-05-06] MEDS: ONDANSETRON 4 MG/2 ML VIAL IV PRN (10:50)
[2022-05-06] MEDS: PANTOPRAZOLE 40 MG VIAL IV SCH ×2 (10:51→20:19)
[2022-05-06] MEDS: cefTRIAXone 1,000 MG in SODIUM CHLORIDE 0.9% 100 ML IV SCH (10:52)
[2022-05-06] MEDS: ENOXAPARIN 60 MG/0.6 ML SYRINGE SUBCUT SCH ×2 (10:52→20:21)
[2022-05-06] MEDS: SACUBITRIL/VALSARTAN 49-51 MG TABLET PO SCH ×2 (10:53→20:19)
[2022-05-06] MEDS: POTASSIUM CHLORIDE 10 MEQ TABLET PO SCH ×2 (10:53→20:19)
[2022-05-06] MEDS: DAPAGLIFLOZIN 10 MG TABLET PO SCH (10:53)
[2022-05-06] MEDS: ARIPiprazole 2 MG TABLET PO SCH (10:53)
[2022-05-06] MEDS: SPIRONOLACTONE 50 MG TABLET PO SCH (10:54)
[2022-05-06] MEDS: WARFARIN 5 MG TABLET PO SCH (10:54)
[2022-05-06] MEDS: DOCUSATE SODIUM 100 MG CAPSULE PO SCH ×2 (10:55→21:45)
[2022-05-06] MEDS: METOPROLOL TARTRATE 50 MG TABLET PO SCH ×2 (10:56→20:19)
[2022-05-06] MEDS: SODIUM CHLORIDE 0.9% 1,000 ML IV SCH (17:34)
[2022-05-06] MEDS ORDERED: ZALEPLON 5 MG CAPSULE PO PRN (19:49)
[2022-05-06] MEDS: ROSUVASTATIN 20 MG TABLET PO SCH (20:19)
[2022-05-07] MEDS: METOCLOPRAMIDE 10 MG/2 ML VIAL IV SCH ×2 (01:13→05:52)
[2022-05-07 06:28] LABS: INR 2.3; PT Patient Result 24.1 SECS (10.1-12.1)
[2022-05-07 06:39] LABS: Alanine Aminotransferase 13 U/L (13-56); Albumin 2.9 G/DL (3.4-5.0); Alkaline Phosphatase 72 U/L (45-117); Aspartate Amino Transferase 15 U/L (0-37); Bilirubin,Total < 0.39 MG/DL (0.20-1.00); Blood Urea Nitrogen 3 MG/DL (7-18); Calcium 8.4 MG/DL (8.5-10.1); Carbon Dioxide 25 MMOL/L (21-32); Chloride 114 MMOL/L (98-107); Glucose 80 MG/DL (74-106); Osmolality,Calculated 283.7 MOS/KG (273-304); Potassium 3.7 MMOL/L (3.5-5.1); Sodium 145 MMOL/L (136-145); Total Protein 5.7 G/DL (6.4-8.2)
[2022-05-07 06:52] LABS: Basophils % 0.8 % (0.0-0.8); Eosinophils # 0.1 10*3/uL (0.0-0.87); Eosinophils % 1.9 % (0.00-10.9); Hematocrit 34.1 VOL% (35.7-47.0); Hemoglobin 9.9 GM/DL (12.0-16.0); Immature Granulocytes % 0.3 %; Immature Granulocytes Absolute 0.01 #; Lymphocytes # 1.4 10*3/uL (1.4-4.0); Lymphocytes % 38.5 % (21.3-54.2); Mean Platelet Volume 12.6 FL (9.6-12.0); Monocytes # 0.3 10*3/uL (0.11-0.8); Monocytes % 8.9 % (1.7-12.7); NRBC # 0.02 10*3/uL; Neutrophils % 49.6 % (38.7-73.9); Platelet Count 214 T/CUMM (130-400); Red Blood Count 4.43 MC/CUMM (3.8-5.5); Red Cell Distribution Width 17.4 % (9.3-17.3); White Blood Count 3.7 T/CUMM (4-12)
[2022-05-07] MEDS: INSULIN REGULAR 100 UNIT/ML SUBCUT SCH ×4 (08:41→21:02)
[2022-05-07] MEDS: METOPROLOL TARTRATE 50 MG TABLET PO SCH ×2 (09:39→20:57)
[2022-05-07] MEDS: ARIPiprazole 2 MG TABLET PO SCH (09:39)
[2022-05-07] MEDS: SPIRONOLACTONE 50 MG TABLET PO SCH (09:39)
[2022-05-07] MEDS: SACUBITRIL/VALSARTAN 49-51 MG TABLET PO SCH ×2 (09:39→20:56)
[2022-05-07] MEDS: PANTOPRAZOLE 40 MG TABLET PO SCH ×2 (09:39→20:57)
[2022-05-07] MEDS: DAPAGLIFLOZIN 10 MG TABLET PO SCH (09:39)
[2022-05-07] MEDS: POTASSIUM CHLORIDE 10 MEQ TABLET PO SCH ×2 (09:40→20:57)
[2022-05-07] MEDS: WARFARIN 5 MG TABLET PO SCH (09:40)
[2022-05-07] MEDS: METOCLOPRAMIDE 10 MG/10 ML UDCUP PO SCH ×4 (09:40→20:58)
[2022-05-07] MEDS: cefTRIAXone 1,000 MG in SODIUM CHLORIDE 0.9% 100 ML IV SCH (09:41)
[2022-05-07] MEDS: ENOXAPARIN 60 MG/0.6 ML SYRINGE SUBCUT SCH ×2 (09:41→21:00)
[2022-05-07] MEDS: DOCUSATE SODIUM 100 MG CAPSULE PO SCH ×2 (09:41→21:00)
[2022-05-07] MEDS: SODIUM CHLORIDE 0.9% 1,000 ML IV SCH ×2 (12:35→21:01)
[2022-05-07] MEDS: ROSUVASTATIN 20 MG TABLET PO SCH (20:57)
[2022-05-08 05:51] LABS: INR 2.3; PT Patient Result 24.3 SECS (10.1-12.1)
[2022-05-08 05:56] LABS: Alanine Aminotransferase 14 U/L (13-56); Albumin 2.9 G/DL (3.4-5.0); Alkaline Phosphatase 68 U/L (45-117); Aspartate Amino Transferase 19 U/L (0-37); Bilirubin,Total < 0.39 MG/DL (0.20-1.00); Blood Urea Nitrogen 3 MG/DL (7-18); Calcium 8.5 MG/DL (8.5-10.1); Carbon Dioxide 25 MMOL/L (21-32); Chloride 112 MMOL/L (98-107); Glucose 84 MG/DL (74-106); Potassium 3.5 MMOL/L (3.5-5.1); Sodium 143 MMOL/L (136-145); Total Protein 5.6 G/DL (6.4-8.2)
[2022-05-08] MEDS: METOCLOPRAMIDE 10 MG/10 ML UDCUP PO SCH (10:11)
[2022-05-08] MEDS: INSULIN REGULAR 100 UNIT/ML SUBCUT SCH (10:11)
[2022-05-08] MEDS: WARFARIN 5 MG TABLET PO SCH (10:12)
[2022-05-08] MEDS: ARIPiprazole 2 MG TABLET PO SCH (10:12)
[2022-05-08] MEDS: DOCUSATE SODIUM 100 MG CAPSULE PO SCH (10:12)
[2022-05-08] MEDS: SACUBITRIL/VALSARTAN 49-51 MG TABLET PO SCH (10:12)
[2022-05-08] MEDS: SPIRONOLACTONE 50 MG TABLET PO SCH (10:12)
[2022-05-08] MEDS: POTASSIUM CHLORIDE 10 MEQ TABLET PO SCH (10:13)
[2022-05-08] MEDS: METOPROLOL TARTRATE 50 MG TABLET PO SCH (10:13)
[2022-05-08] MEDS: PANTOPRAZOLE 40 MG TABLET PO SCH (10:13)
[2022-05-08] MEDS: DAPAGLIFLOZIN 10 MG TABLET PO SCH (10:13)
[2022-05-08] MEDS: ENOXAPARIN 60 MG/0.6 ML SYRINGE SUBCUT SCH (10:13)
[2022-05-08] MEDS: cefTRIAXone 1,000 MG in SODIUM CHLORIDE 0.9% 100 ML IV SCH (10:14)
[2022-05-08 12:55] VITALS: BP 132/77
== END 2022-05-08 13:25 | disposition home or self-care (01) ==
LOC: N.EDINP 22:02 → N.ED 22:02 → INTOOBSV 05-04 08:41 → OBSVTOIN 05-04 08:41 → N.2E 05-04 13:53
PROVIDERS: ADMIT Family Medicine; ATTEND Family Medicine